=== PATIENT | female | born 1935 | race Caucasian/White ===

== ENCOUNTER → 2021-07-12 14:42 | Outpatient (BNVA) | payer MEDICARE, OTHER, SELFPAY | PROVIDERS: PCP Internal Medicine; Visit Provider Internal Medicine Gastroenterology | DX: K74.3 Primary biliary cirrhosis (principal); K52.839 Microscopic colitis, unspecified | CPT/HCPCS: 99202 ==

== ENCOUNTER 2021-11-22 14:01 | Outpatient (REF) | payer MEDICARE, OTHER, SELFPAY ==
[2021-11-22 15:17] LABS: MANUAL DIFF FLAG NO
[2021-11-22 15:35] LABS: Prothrombin Time 11.3 SEC (10.0-13.1)
[2021-11-22 15:38] LABS: Basophils Percent Auto 0.3 % (0-2); Eosinophils Absolute Auto 0.1 X10*3/uL (0.0-0.4); Eosinophils Percent Auto 1.3 % (0-4); Hematocrit 40.3 % (37.0-47.0); Hemoglobin 12.9 g/dl (12.0-16.0); Imm Gran Abs Auto 0.03 X10*3/uL (0.00-0.03); Imm Gran Pct Auto 0.5 % (0.0-0.4); Lymphocytes Absolute Auto 2.7 X10*3/uL (1.2-4.9); Lymphocytes Percent Auto 42.9 % (20-40); Mean Corpuscular Hemoglobin 27.7 pg (27.0-33.0); Mean Corpuscular Volume 86.7 fL (80.0-98.0); Mean Platelet Volume 11.8 fL (9.4-12.3); Monocytes Absolute Auto 0.5 X10*3/uL (0.1-1.2); Monocytes Percent Auto 8.3 % (2-11); Neutrophils Percent Auto 46.7 % (45-73); Platelet Count 160 X10*3/uL (160-400); Red Blood Count 4.65 X10*6/uL (4.20-5.50); Red Cell Distribution Width 12.8 % (11.0-16.0); White Blood Count 6.3 X10*3/uL (4.8-10.8)
[2021-11-22 15:54] LABS: Alanine Aminotransferase 9 U/L (0-31); Albumin Level 4.1 g/dL (3.5-5.0); Alkaline Phosphatase 56 U/L (39-117); Anion Gap 14 (12-20); Aspartate Amino Transferase 18 U/L (5-31); Bilirubin Total 0.4 mg/dL (0.0-1.0); Blood Urea Nitrogen 23 mg/dL (9-16); C Reactive Protein 0.18 mg/dL (< or = 0.50); Calcium 8.7 mg/dL (8.4-10.2); Carbon Dioxide 26 mmol/L (22-29); Chloride 106 mmol/L (96-108); Estimated Glomerular Filt Rate 46; Glucose Random 76 mg/dL (60-115); Potassium 4.4 mmol/L (3.3-5.1); Sodium 142 mmol/L (135-145); Total Protein 6.9 g/dL (6.5-8.0)
[2021-11-22 16:14] LABS: Ferritin 318 ng/mL (10-250); Vitamin D 25-OH Total 43.4 ng/mL (>30)
[2021-11-22 16:33] LABS: Folate 9.7 ng/mL (> or = 4.0); Vitamin B12 1473 pg/mL (200-900)
[2021-11-22 17:17] LABS: Appearance Urine Clear; Color Urine Yellow; Glucose Urine UA Negative (Negative); Leukocyte Esterase Urine Moderate (2+) (Negative); Nitrite Urine Negative (Negative); PH 5.5 (5.0-9.0); Specific Gravity - Urine 1.015 (1.005-1.025); UMIC TRIGGER UACC YES; Urine Blood Negative (Negative); Urine Ketones Negative (Negative); Urine Protein Negative (Neg-Trace)
[2021-11-22 17:23] LABS: Bacteria Urine None Seen (None Seen); Hyaline Casts Urine 0-2 /LPF (0-2); RBC Urine 0-2 /HPF (0-2); UACC Culture Trigger YES
[2021-11-23 08:04] LABS: HBS Num1 0.97 mIU/mL (0-7.99); HBc Num1 0.07 S/CO (0.00-0.79); HBsAGNum1 0.16 S/CO (0.00-0.99); Hepatitis B Core Antibody Nonreactive (Nonreactive); Hepatitis B Surface Antigen Negative (Negative); ~HepC Num1 0.16 S/CO (0.00-0.79); ~Hepatitis B Surface Antibody NONREACTIVE (Nonreactive); ~Hepatitis C Antibody Nonreactive (Nonreactive)
[2021-11-24 08:14] LABS: Hepatitis A Antibody IgM 0.29 Index (0-0.79); ~Hepatitis A Antibody IgM Nonreactive (Nonreactive)
[2021-11-24 14:47] LABS: Alpha 1 Anti-trypsin 179 mg/dL (83-199); Immunoglobulin G 1230 mg/dL (600-1540)
[2021-11-24 17:42] LABS: Transglutaminase Ab IgG <1.0 U/mL
[2021-11-25 16:56] LABS: Zinc 83 mcg/dL (60-130)
[2021-11-25 22:57] LABS: Soluble Liver Ag Autoantibody <20.1 U (0.0-20.0)
[2021-11-26 00:37] LABS: Liver Kidney Microsomal Ab <=20.0 U (<=20.0)
[2021-11-26 13:11] LABS: Smooth Muscle Antibody 35 U (<20)
[2021-11-26 15:37] LABS: Vitamin B6 3.6 ng/mL (2.1-21.7)
[2021-11-26 17:27] LABS: Vitamin C 0.8 mg/dL (0.3-2.7)
[2021-11-26 17:36] LABS: Vitamin A 49 mcg/dL (38-98)
[2021-11-28 17:52] LABS: Vitamin K1 257 pg/mL (130-1500)
[2021-11-29 15:47] LABS: Vitamin B5 (Pantothenic Acid) <40 ng/mL (<275)
[2021-11-29 15:52] LABS: Nicotinamide <20 ng/mL; Vit B3 - Nicotinic Acid <20 ng/mL
== END 2021-11-22 14:02 | disposition home or self-care (01) ==
LOC: HO.LAB 14:01
PROVIDERS: PCP Internal Medicine; Visit Provider Internal Medicine Gastroenterology
DX: K74.3 Primary biliary cirrhosis (principal); R63.4 Abnormal weight loss; K75.81 Nonalcoholic steatohepatitis (NASH); K52.839 Microscopic colitis, unspecified; G89.29 Other chronic pain; R10.33 Periumbilical pain; R19.7 Diarrhea, unspecified
CPT/HCPCS: 36415; 80053; 81001; 82103; 82180; 82306; 82607; 82728; 82746; 82784; 83520; 84207; 84590; 84591; 84597; 84630; 85025; 85610; 86015; 86140; 86364; 86376; 86704; 86706; 86709; 86803; 87086; 87340; 99212

== ENCOUNTER 2022-04-08 10:54 | Outpatient (REF) | payer MEDICARE, MEDICAID, SELFPAY ==
[2022-04-08 12:15] LABS: MANUAL DIFF FLAG NO
[2022-04-08 12:28] LABS: Basophils Percent Auto 0.5 % (0-2); Eosinophils Absolute Auto 0.3 X10*3/uL (0.0-0.4); Eosinophils Percent Auto 3.2 % (0-4); Hematocrit 40.2 % (37.0-47.0); Hemoglobin 12.3 g/dl (12.0-16.0); Imm Gran Abs Auto 0.04 X10*3/uL (0.00-0.03); Imm Gran Pct Auto 0.5 % (0.0-0.4); Lymphocytes Absolute Auto 2.1 X10*3/uL (1.2-4.9); Lymphocytes Percent Auto 25.7 % (20-40); Mean Corpuscular HGB Conc 30.6 g/dl (31.0-35.0); Mean Corpuscular Hemoglobin 27.5 pg (27.0-33.0); Mean Corpuscular Volume 89.9 fL (80.0-98.0); Mean Platelet Volume 12.1 fL (9.4-12.3); Monocytes Absolute Auto 0.6 X10*3/uL (0.1-1.2); Monocytes Percent Auto 6.8 % (2-11); Neutrophils Absolute Auto 5.1 x10*3/uL (2.0-8.3); Neutrophils Percent Auto 63.3 % (45-73); Platelet Count 175 X10*3/uL (160-400); Red Blood Count 4.47 X10*6/uL (4.20-5.50); Red Cell Distribution Width 13.2 % (11.0-16.0)
[2022-04-08 12:42] LABS: Prothrombin Time 11.4 SEC (10.0-13.1)
[2022-04-08 13:41] LABS: Ferritin 106 ng/mL (10-250); Folate 9.3 ng/mL (> or = 4.0); Vitamin B12 668 pg/mL (200-900); Vitamin D 25-OH Total 35.2 ng/mL (>30)
[2022-04-08 14:16] LABS: Alanine Aminotransferase 8 U/L (0-31); Albumin Level 3.9 g/dL (3.5-5.0); Alkaline Phosphatase 71 U/L (39-117); Anion Gap 14 (12-20); Aspartate Amino Transferase 17 U/L (5-31); Bilirubin Total 0.5 mg/dL (0.0-1.0); Blood Urea Nitrogen 22 mg/dL (9-16); Calcium 9.1 mg/dL (8.4-10.2); Carbon Dioxide 29 mmol/L (22-29); Chloride 105 mmol/L (96-108); Estimated Glomerular Filt Rate 39; Glucose Random 94 mg/dL (60-115); Magnesium 1.2 mg/dL (1.6-2.6); Potassium 4.5 mmol/L (3.3-5.1); Sodium 143 mmol/L (135-145); Total Protein 6.7 g/dL (6.5-8.0)
[2022-04-12 23:59] LABS: Zinc 70 mcg/dL (60-130)
[2022-04-13 16:23] LABS: Vitamin A 50 mcg/dL (38-98)
[2022-04-13 17:34] LABS: Alpha-Tocopherol 19.1 mg/L (5.7-19.9); Beta-Gamma Tocopherol <1.0 mg/L (<=4.3)
[2022-04-14 14:38] LABS: Vitamin K1 541 pg/mL (130-1500)
[2022-04-14 17:13] LABS: Vitamin C 0.8 mg/dL (0.3-2.7)
[2022-04-14 18:33] LABS: Nicotinamide <20 ng/mL; Vit B3 - Nicotinic Acid <20 ng/mL
[2022-04-14 22:43] LABS: Vitamin B5 (Pantothenic Acid) 52 ng/mL (<275)
[2022-04-15 18:09] LABS: Vitamin B1 16 nmol/L (8-30)
== END 2022-04-08 10:55 | disposition home or self-care (01) ==
LOC: HO.LAB 10:54
PROVIDERS: PCP Internal Medicine; Referring Provider Internal Medicine; Visit Provider Internal Medicine Gastroenterology
DX: E46 Unspecified protein-calorie malnutrition (principal); K74.3 Primary biliary cirrhosis; K75.81 Nonalcoholic steatohepatitis (NASH); R63.4 Abnormal weight loss
CPT/HCPCS: 36415; 80053; 82180; 82306; 82607; 82728; 82746; 83735; 84207; 84425; 84446; 84590; 84591; 84597; 84630; 85025; 85610; 99212

== ENCOUNTER 2022-05-26 12:26 | Outpatient (REF) | payer MEDICARE, MEDICAID, SELFPAY ==
[2022-05-26 14:43] LABS: Magnesium 1.1 mg/dL (1.6-2.6)
== END 2022-05-26 12:27 | disposition home or self-care (01) ==
LOC: HO.HMGCLDS 12:26
PROVIDERS: PCP Internal Medicine; Visit Provider Internal Medicine Gastroenterology
DX: E46 Unspecified protein-calorie malnutrition (principal); R63.4 Abnormal weight loss
CPT/HCPCS: 36415; 83735

== ENCOUNTER 2022-06-20 13:36 | Outpatient (REF) | payer MEDICARE, MEDICAID, SELFPAY ==
[2022-06-20 18:01] LABS: Magnesium 1.3 mg/dL (1.6-2.6)
== END 2022-06-20 13:37 | disposition home or self-care (01) ==
LOC: HO.HMGCLDS 13:36
PROVIDERS: PCP Internal Medicine; Visit Provider Internal Medicine Gastroenterology
DX: E46 Unspecified protein-calorie malnutrition (principal)
CPT/HCPCS: 36415; 83735

== ENCOUNTER 2022-07-27 12:29 | Outpatient (REF) | payer MEDICARE, MEDICAID, SELFPAY ==
[2022-07-27 14:19] LABS: Alkaline Phosphatase 60 U/L (39-117); Calcium 9.3 mg/dL (8.4-10.2); Potassium 4.4 mmol/L (3.3-5.1)
[2022-07-27 14:25] LABS: Magnesium 1.4 mg/dL (1.6-2.6)
== END 2022-07-27 12:30 | disposition home or self-care (01) ==
LOC: HO.HMGCLDS 12:29
PROVIDERS: PCP Internal Medicine; Visit Provider Internal Medicine Gastroenterology
DX: E46 Unspecified protein-calorie malnutrition (principal)
CPT/HCPCS: 36415; 82310; 83735; 84075; 84132

== ENCOUNTER 2022-09-15 11:04 | Outpatient (REF) | payer MEDICARE, MEDICAID, SELFPAY ==
[2022-09-15 15:38] LABS: Magnesium 1.2 mg/dL (1.6-2.6)
== END 2022-09-15 11:05 | disposition home or self-care (01) ==
LOC: HO.HMGCLDS 11:04
PROVIDERS: PCP Internal Medicine; Visit Provider Internal Medicine Gastroenterology
DX: E46 Unspecified protein-calorie malnutrition (principal)
CPT/HCPCS: 36415; 83735

== ENCOUNTER 2022-10-07 13:27 | Outpatient (REF) | payer MEDICARE, MEDICAID, SELFPAY ==
[2022-10-07 17:29] LABS: Magnesium 1.3 mg/dL (1.6-2.6)
== END 2022-10-07 13:28 | disposition home or self-care (01) ==
LOC: HO.HMGCLDS 13:27
PROVIDERS: Visit Provider Internal Medicine Gastroenterology
DX: E46 Unspecified protein-calorie malnutrition (principal)
CPT/HCPCS: 36415; 83735

== ENCOUNTER 2022-10-10 14:50 | Outpatient (AMB) | payer MEDICARE, MEDICAID, SELFPAY ==
[2022-10-10 14:55] VITALS: BP 145/68; PULSE 66; BMI 33.3
--- NOTE | 2022-10-10 14:55 | A.OFFVIS_ITS ---
Intake Vital Signs 10/10/22 14:55 Height 5 ft 1 in Weight 176 lb 5.917 oz BMI 33.3 BP 145/68 H Blood Pressure Location Lt brachial Position Sitting Pulse 66 Intake Visit Reasons: 6 month follow up Intake Note: Sola presents in the office as a 6 month follow up. CC: She states that she thinks she may be having a UTI at the moment and would like to be tested. 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 she was commenced on ursodiol and been on since she had EGD 03/2013-- no signs of portal HTN noted. she is recovering from an attack of vertigo, w/u neg for CVA she has a rash few months ago, ?shingles --now post herpetic pain--burning on left side she denies abdominal pain no nausea appetite is good weight si stable normal stools she has hemorrhoids that bleed some times denies constipation she had colonoscopy--cant recall --done at [facility] she use to see Dr Qureshi RUQ: 07/2021---renal cysts, small liver consistent with cirrhosis, no masses INTERIM: she is worried about UTI, burning with urine she has pins and needles, constant like her shingles pain, did see some blisters last few days appetite is good no other areas of abdominal pain no jaundice takes vitamins daily and ursodiol she has low Mag EXAM: GENERAL: The patient is well developed and nontoxic, VITAL SIGNS:see workflow HEENT: Nonicteric sclerae, PERRLA, EOMI. Oropharynx clear. Moist mucous membranes. Conjunctivae appear well perfused. No thyroid mass. CHEST: Chest wall is nontender. HEART: Regular rate and rhythm without murmurs. LUNGS: Clear to auscultation bilaterally. ABDOMEN: Soft, positive bowel sounds,tender upper abdomen, no organomegaly.no flank tenderness SKIN: No rash, no excessive bruising, petechiae, or purpura. NEUROLOGIC: Cranial nerves II-XII intact without motor/sensory deficit. MS: normal ROM A/P: 1/ diagnosis of PBC, been on urosdiol for years, LFT have been normal 2/ hypomagnesemia likely 2/2 to PPI which she says she cannot stop 3/ post shingles radicular pain PLAN: 1/ nortriptiline, and see if helps her radicular sounding pain 2/ labs incl vitamin levels next time 3/ cipro for presumed UTI--send for UA and culture 4/ cont with ursodiol 5/ increase Mg to TID, she is folllwing with renal for this as well ?? ? 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
== END 2022-10-10 15:20 | disposition home or self-care (01) ==
PROVIDERS: PCP Internal Medicine; Visit Provider Internal Medicine Gastroenterology
DX: K74.3 Primary biliary cirrhosis (principal); N39.0 Urinary tract infection, site not specified
CPT/HCPCS: 99213

== ENCOUNTER → 2022-10-10 14:50 | Outpatient (BNVA) | payer MEDICARE, MEDICAID, SELFPAY | PROVIDERS: PCP Internal Medicine; Visit Provider Internal Medicine Gastroenterology | DX: N39.0 Urinary tract infection, site not specified (principal); K74.3 Primary biliary cirrhosis; Z90.49 Acquired absence of other specified parts of digestive tract | CPT/HCPCS: 99212 ==

== ENCOUNTER 2022-10-14 13:58 | Outpatient (REF) | payer MEDICARE, MEDICAID, SELFPAY ==
[2022-10-14 16:02] LABS: Appearance Urine Clear; Color Urine Yellow; Glucose Urine UA Negative (Negative); Leukocyte Esterase Urine Negative (Negative); Nitrite Urine Negative (Negative); PH 5.5 (5.0-9.0); Urine Blood Negative (Negative); Urine Ketones Trace mg/dL (Negative); Urine Protein Negative (Neg-Trace)
== END 2022-10-14 13:59 | disposition home or self-care (01) ==
LOC: HO.HMGCLDS 13:58
PROVIDERS: PCP Internal Medicine; Visit Provider Internal Medicine Gastroenterology
DX: R30.0 Dysuria (principal)
CPT/HCPCS: 81003

== ENCOUNTER 2022-12-05 14:21 | Outpatient (AMB) | payer MEDICARE, MEDICAID, SELFPAY ==
--- NOTE | 2022-12-05 14:33 | MHC.OFFVIS ---
Intake Vital Signs 12/05/22 14:35 Height 5 ft 1 in Weight 174 lb 2.643 oz BMI 32.9 BP 133/62 Blood Pressure Location Lt brachial Position Sitting Pulse 63 Intake Visit Reasons: 8 week follow up Intake Note: Sola presents in the office as a 8 week follow up. CC: She states that she is dealing with a shingles pains. She is having pains for over a year. She was given the Nortriptlyine but was told by PCP that she should not take this - has it on her note for you here. Allergies No Known Allergies [No Known Allergies*] Allergy (Unverified 12/05/22 14:36) HPI 8 week follow up HPI Details 87 yr old f being seen for f/u RECAP: Per PCP note pt had PBC dx 2011 after cholecystectomy? she was commenced on ursodiol and been on since she had EGD 03/2013-- no signs of portal HTN noted. she is recovering from an attack of vertigo, w/u neg for CVA she has a rash few months ago, ?shingles --now post herpetic pain--burning on left side she denies abdominal pain no nausea appetite is good weight si stable normal stools she has hemorrhoids that bleed some times denies constipation she had colonoscopy--cant recall --done at [facility] she use to see Dr Qureshi RUQ: 07/2021---renal cysts, small liver consistent with cirrhosis, no masses INTERIM: she has some cold symptoms, she still has pain from the shingles, she did not take low dose TCA as her pcp recommended her not to take it appetite is good no other areas of abdominal pain no jaundice takes vitamins daily and ursodiol she still has low Mag, she is willing to now come off PPI and try H2B EXAM: GENERAL: The patient is well developed and nontoxic, VITAL SIGNS:see workflow HEENT: Nonicteric sclerae, PERRLA, EOMI. Oropharynx clear. Moist mucous membranes. Conjunctivae appear well perfused. No thyroid mass. CHEST: Chest wall is nontender. HEART: Regular rate and rhythm without murmurs. LUNGS: Clear to auscultation bilaterally. ABDOMEN: Soft, positive bowel sounds,tender upper abdomen, no organomegaly.no flank tenderness SKIN: No rash, no excessive bruising, petechiae, or purpura. NEUROLOGIC: Cranial nerves II-XII intact without motor/sensory deficit. MS: normal ROM A/P: 1/ diagnosis of PBC, been on urosdiol for years, LFT have been normal 2/ hypomagnesemia likely 2/2 to PPI which she says she cannot stop 3/ post shingles radicular pain PLAN: 1/ refer pain mx for further assessment of post herpetic neuralgia 2/ labs incl vitamin levels 3/ cont with ursodiol 4/ stop PPI and try famotidine and see if helps he Mag ?? ? 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 (2) Post herpetic neuralgia: Code(s): B02.29 - Other postherpetic nervous system involvement (3) Weight loss: Code(s): R63.4 - Abnormal weight loss (4) Malnutrition: Code(s): E46 - Unspecified protein-calorie malnutrition Orders: Orders Complete Blood Count Auto Diff Today B02.29 - Other postherpetic nervous system involvement, K74.3 - Primary biliary cirrhosis, R63.4 - Abnormal weight loss Vitamin B1 Today B02.29 - Other postherpetic nervous system involvement, E46 - Unspecified protein-calorie malnutrition, K74.3 - Primary biliary cirrhosis, R63.4 - Abnormal weight loss Vitamin B12 and Folate Today B02.29 - Other postherpetic nervous system involvement, E46 - Unspecified protein-calorie malnutrition, K74.3 - Primary biliary cirrhosis, R63.4 - Abnormal weight loss Vitamin C Today B02.29 - Other postherpetic nervous system involvement, E46 - Unspecified protein-calorie malnutrition, K74.3 - Primary biliary cirrhosis, R63.4 - Abnormal weight loss Vitamin D 25-OH Total Today B02.29 - Other postherpetic nervous system involvement, E46 - Unspecified protein-calorie malnutrition, K74.3 - Primary biliary cirrhosis, R63.4 - Abnormal weight loss Ferritin Today B02.29 - Other postherpetic nervous system involvement, E46 - Unspecified protein-calorie malnutrition, K74.3 - Primary biliary cirrhosis, R63.4 - Abnormal weight loss Vitamin K1 Today B02.29 - Other postherpetic nervous system involvement, E46 - Unspecified protein-calorie malnutrition, K74.3 - Primary biliary cirrhosis, R63.4 - Abnormal weight loss Vitamin E Today B02.29 - Other postherpetic nervous system involvement, E46 - Unspecified protein-calorie malnutrition, K74.3 - Primary biliary cirrhosis, R63.4 - Abnormal weight loss Comprehensive Met. Panel Today B02.29 - Other postherpetic nervous system involvement, K74.3 - Primary biliary cirrhosis, K75.81 - Nonalcoholic steatohepatitis (TOLBERT), R63.4 - Abnormal weight loss Magnesium Today B02.29 - Other postherpetic nervous system involvement, K74.3 - Primary biliary cirrhosis, R63.4 - Abnormal weight loss Vitamin A Today B02.29 - Other postherpetic nervous system involvement, E46 - Unspecified protein-calorie malnutrition, K74.3 - Primary biliary cirrhosis, R63.4 - Abnormal weight loss Vitamin B3 (Niacin) Today B02.29 - Other postherpetic nervous system involvement, E46 - Unspecified protein-calorie malnutrition, K74.3 - Primary biliary cirrhosis, R63.4 - Abnormal weight loss Vitamin B5 (Pantothenic Acid) Today B02.29 - Other postherpetic nervous system involvement, E46 - Unspecified protein-calorie malnutrition, K74.3 - Primary biliary cirrhosis, R63.4 - Abnormal weight loss Vitamin B6 Today B02.29 - Other postherpetic nervous system involvement, E46 - Unspecified protein-calorie malnutrition, K74.3 - Primary biliary cirrhosis, R63.4 - Abnormal weight loss Zinc Today B02.29 - Other postherpetic nervous system involvement, E46 - Unspecified protein-calorie malnutrition, K74.3 - Primary biliary cirrhosis, R63.4 - Abnormal weight loss Referrals Pain Management Referral B02.29 - Other postherpetic nervous system involvement, K74.3 - Primary biliary cirrhosis, R63.4 - Abnormal weight loss Medications: New famotidine 40 mg PO BID 90 tabs 3RF Coding Level of Care Code Est Pt Level 3 (95075) Diagnoses Primary biliary cholangitis K74.3 Post herpetic neuralgia B02.29 Weight loss R63.4 Malnutrition E46
[2022-12-05 14:35] VITALS: BP 133/62; PULSE 63; BMI 32.9
== END 2022-12-05 15:01 | disposition home or self-care (01) ==
PROVIDERS: PCP Internal Medicine; Visit Provider Internal Medicine Gastroenterology
DX: K74.3 Primary biliary cirrhosis (principal); B02.29 Other postherpetic nervous system involvement; R63.4 Abnormal weight loss; E46 Unspecified protein-calorie malnutrition
CPT/HCPCS: 99213

== ENCOUNTER → 2022-12-05 14:21 | Outpatient (BNVA) | payer MEDICARE, MEDICAID, SELFPAY | PROVIDERS: PCP Internal Medicine; Visit Provider Internal Medicine Gastroenterology | DX: B02.29 Other postherpetic nervous system involvement (principal); K74.3 Primary biliary cirrhosis; R63.4 Abnormal weight loss; E46 Unspecified protein-calorie malnutrition | CPT/HCPCS: 99212 ==

== ENCOUNTER 2022-12-21 13:19 | Outpatient (AMB) | payer MEDICARE, MEDICAID, SELFPAY ==
--- NOTE | 2022-12-21 13:22 | MHC.OFFVIS ---
Intake Vital Signs 12/21/22 13:23 Height 5 ft 1 in Weight 174 lb BMI 32.9 BP 131/79 Blood Pressure Location Lt brachial Position Sitting Respiration 12 Pulse 100 Pulse Source Pulse Oximeter Pulse Oximetry (%) 97 Oxygen Delivery Method Room Air Intake Visit Reasons: postherpetic nervous system involvement /Confirmed Allergies No Known Allergies [No Known Allergies*] Allergy (Verified 12/21/22 13:24) Medication List - Last Reconciled 12/21/22 by Tona Menard LPN albuterol sulfate 90 mcg/actuation 2 puffs inhalation Q4H alprazolam 0.25 mg PO BEDTIME PRN escitalopram oxalate 10 mg PO QPM famotidine 40 mg PO BID fluticasone propionate 50 mcg/actuation sprays intranasal hydrocortisone acetate 25 mg RI BID PRN insulin asp prt-insulin aspart 100 unit/mL (70-30) (Novolog Mix 70-30FlexPen U-100) 5 units subcut TID insulin glargine (Basaglar KwikPen U-100 Insulin) units subcut lisinopril 20 mg PO DAILY metoprolol tartrate 25 mg PO BID pen needle, diabetic (BD Ultra-Fine Short Pen Needle) As directed rosuvastatin 10 mg PO BEDTIME ursodiol 500 mg PO BID HPI HPI Comments History of Present Illness Details Sidney Knight is very pleasant 87 years old female who presents in my office with complains on severe pain in right flank and right upper quadrant of the abdomen in sensations of little needles and burning sensation for 1 and half years. She reports that she received evaluation for shingles in the past but never was offered valacyclovir for treatment. She currently have frequent out crops of shingle rash appeared on the painful area. She could be immunocompromised and continue to have shingle out crops. She never received gabapentin or lidocaine patch for treatment of her pain. She reports that she cannot sleep normally because of her pain cannot do activities of daily living she can take care of herself but she cannot function normally. She is retired individual. In terms of tissue damage she reports her pain is throbbing shooting stabbing sharp tingling piercing burning stinging aching heavy sensation. She never tried 10s unit for her pain. Her past medical history significant for diabetes type 2 she is on insulin now she had liver disease she reports agoraphobia and panic attacks she reports headaches fatigue dizzy knee and fading. Past surgical history significant for gallbladder surgery and knee replacement. Social history she is retired individual she denies smoking cigarettes drinking alcohol she drinks 2 cups of coffee today she denies recreational drugs. [facility] Surgical History History of esophagogastroduodenoscopy (EGD) Hx of appendectomy Hx of cholecystectomy Hx of colonoscopy Hx of knee surgery Review of Systems Const All systems reviewed & are unremarkable except as noted in HPI and below Reports fatigue, Reports headache(s), Reports lethargy and Reports weight loss ENT Reports Normal hearing present and Reports headache(s) Card Denies dyspnea Resp Denies cough and Denies dyspnea GI Denies constipation and Denies diarrhea Musc Reports as per HPI and Reports tingling Neuro Reports Normal hearing present, Denies Abnormal speech present, Denies confusion, Reports headache(s), Denies Sensory deficit (Neuro) and Reports tingling Psych Reports abnormal sleep pattern, Denies confusion and Reports depression Endo Reports fatigue Physical Exam Vital Signs: Last Vital Signs Pulse 100 12/21/22 13:23 Resp 12 12/21/22 13:23 BP 131/79 12/21/22 13:23 Pulse Ox 97 12/21/22 13:23 Oxygen Delivery Method Room Air 12/21/22 13:23 BMI result Body Mass Index 32.9 Const General: no acute distress; No confusion Orientation/consciousness: patient oriented x3 and No confusion Eyes General: appearance normal, both eyes and all related structures Pupils: Equal, round and reactive pupils present EOM: EOMs intact bilaterally Neck Neck: Yes full ROM Chest Chest palpation & inspection: normal inspection of the chest Resp Effort & Inspection: normal respiratory effort, able to speak in complete sentences, normal respiratory pattern, no audible wheezes and no cough Cardio Jugular venous distension: no JVD GI Other: On inspection of right lateral flank of the patient and right upper quadrant dry fresh out crops of the shingle blisters as well as previous evidence of out crops as spotty pigmentation along side approximately T12-L1 truncal nerve root course on the right. Neuro General: patient oriented x3, gait normal and No confusion Cranial nerves: Yes CN's II-XII intact bilaterally, Yes Equal, round and reactive pupils present, Yes Normal hearing present and Yes Ability to bilaterally elevate shoulders present Speech: No Abnormal speech present Gait exam (Neuro): Normal gait present Motor exam (neuro): 5/5 motor strength present throughout Sensory Exam: No Sensory deficit (Neuro) Extrem General: No pedal edema Psych Speech and movement: Normal speech and movement present Affect: normal affect Attitude: cooperative Thought process: Normal thought process present Thought content: Normal thought content present Insight: Good insight present (Psych) Judgement: Good judgement present (Psych) Assessment & Plan Assessment & Plan (1) Herpes zoster: Code(s): B02.9 - Zoster without complications (2) Post herpetic neuralgia: Code(s): B02.29 - Other postherpetic nervous system involvement Plan I will consider this patient still as 1 suffering from herpes zoster. She never received valacyclovir treatment in the past and she has fresh out crops of shingles constantly coming on the anterior and lateral surface of the right upper quadrant. I will start her on valacyclovir 1000 mg p.o. Q 8 hours for 10 days. I also will prescribe her gabapentin as well as lidocaine patch to treat her condition. I will see her in 2 months. I will offer her some injections and or neuromodulation is if her condition is not improved by then. Medications: New valacyclovir 1,000 mg PO Q8H 10 days 30 tabs 0RF gabapentin 300 mg PO TID 30 days 90 caps 8RF lidocaine 5% leave on most painful area for up to 12 hrs 2 patches topical DAILY 30 days 30 ea 0RF B02.9 - Zoster without complications Patient Instructions: I here by testify that I spent 45 minutes in conversation with this patient as well as planning her care and organizing this note. Coding Level of Care Code New Pt Level 4 (16203) Diagnoses Herpes zoster B02.9 Post herpetic neuralgia B02.29
[2022-12-21 13:23] VITALS: BP 131/79; PULSE 100; RESP 12; O2SAT 97; BMI 32.9
== END 2022-12-21 13:49 | disposition home or self-care (01) ==
PROVIDERS: PCP Internal Medicine; Visit Provider Anesthesiology
DX: B02.9 Zoster without complications (principal); B02.29 Other postherpetic nervous system involvement
CPT/HCPCS: 99204

== ENCOUNTER → 2022-12-21 13:19 | Outpatient (BNVA) | payer MEDICARE, MEDICAID, SELFPAY | PROVIDERS: PCP Internal Medicine; Visit Provider Anesthesiology | DX: B02.29 Other postherpetic nervous system involvement (principal) | CPT/HCPCS: 99202 ==

== ENCOUNTER 2023-01-30 12:32 | Outpatient (REF) | payer MEDICARE, MEDICAID, SELFPAY ==
[2023-01-30 13:07] LABS: MANUAL DIFF FLAG NO
[2023-01-30 14:27] LABS: Basophils Percent Auto 0.5 % (0-2); Eosinophils Absolute Auto 0.2 X10*3/uL (0.0-0.4); Eosinophils Percent Auto 2.6 % (0-4); Hematocrit 38.5 % (37.0-47.0); Imm Gran Abs Auto 0.03 X10*3/uL (0.00-0.03); Imm Gran Pct Auto 0.4 % (0.0-0.4); Lymphocytes Absolute Auto 1.7 X10*3/uL (1.2-4.9); Lymphocytes Percent Auto 22.5 % (20-40); Mean Corpuscular HGB Conc 31.2 g/dl (31.0-35.0); Mean Corpuscular Hemoglobin 28.6 pg (27.0-33.0); Mean Corpuscular Volume 91.7 fL (80.0-98.0); Mean Platelet Volume 12.1 fL (9.4-12.3); Monocytes Absolute Auto 0.5 X10*3/uL (0.1-1.2); Monocytes Percent Auto 6.6 % (2-11); Neutrophils Absolute Auto 5.1 x10*3/uL (2.0-8.3); Neutrophils Percent Auto 67.4 % (45-73); Platelet Count 149 X10*3/uL (160-400); Red Cell Distribution Width 14.1 % (11.0-16.0); White Blood Count 7.6 X10*3/uL (4.8-10.8)
[2023-01-30 15:26] LABS: Ferritin 141 ng/mL (10-250); Vitamin D 25-OH Total 43.6 ng/mL (>30)
[2023-01-30 15:28] LABS: Alanine Aminotransferase 6 U/L (0-31); Albumin Level 3.9 g/dL (3.5-5.0); Alkaline Phosphatase 60 U/L (39-117); Anion Gap 13 (12-20); Aspartate Amino Transferase 13 U/L (5-31); Bilirubin Total 0.4 mg/dL (0.0-1.0); Blood Urea Nitrogen 19 mg/dL (9-16); Calcium 9.4 mg/dL (8.4-10.2); Carbon Dioxide 24 mmol/L (22-29); Chloride 107 mmol/L (96-108); Estimated Glomerular Filt Rate 37; Glucose Random 187 mg/dL (60-115); Magnesium 1.3 mg/dL (1.6-2.6); Potassium 3.9 mmol/L (3.3-5.1); Sodium 140 mmol/L (135-145); Total Protein 6.9 g/dL (6.5-8.0)
[2023-01-30 15:37] LABS: Folate 8.2 ng/mL (> or = 4.0); Vitamin B12 1359 pg/mL (200-900)
[2023-02-01 12:30] LABS: Zinc 79 mcg/dL (60-130)
[2023-02-02 12:48] LABS: Alpha-Tocopherol 25.4 mg/L (5.7-19.9); Beta-Gamma Tocopherol <1.0 mg/L (<=4.3)
[2023-02-02 15:27] LABS: Vitamin A 45 mcg/dL (38-98)
[2023-02-03 11:09] LABS: Vitamin B1 13 nmol/L (8-30)
[2023-02-03 11:13] LABS: Vitamin K1 728 pg/mL (130-1500)
[2023-02-05 23:18] LABS: Vitamin C 0.3 mg/dL (0.3-2.7)
[2023-02-06 19:48] LABS: Vitamin B5 (Pantothenic Acid) 72 ng/mL (<275)
[2023-02-06 21:28] LABS: Nicotinamide <20 ng/mL; Vit B3 - Nicotinic Acid <20 ng/mL
== END 2023-01-30 12:33 | disposition home or self-care (01) ==
LOC: HO.LAB 12:32
PROVIDERS: PCP Internal Medicine; Visit Provider Internal Medicine Gastroenterology
DX: B02.29 Other postherpetic nervous system involvement (principal); R63.4 Abnormal weight loss; K74.3 Primary biliary cirrhosis; E46 Unspecified protein-calorie malnutrition; K75.81 Nonalcoholic steatohepatitis (NASH)
CPT/HCPCS: 36415; 80053; 82180; 82306; 82607; 82728; 82746; 83735; 84207; 84425; 84446; 84590; 84591; 84597; 84630; 85025

== ENCOUNTER 2023-03-20 14:34 | Outpatient (REF) | payer MEDICARE, MEDICAID, SELFPAY ==
[2023-03-20 16:20] LABS: Magnesium 1.5 mg/dL (1.6-2.6)
== END 2023-03-20 14:35 | disposition home or self-care (01) ==
LOC: HO.HMGCLDS 14:34
PROVIDERS: PCP Internal Medicine; Visit Provider Internal Medicine Gastroenterology
DX: E46 Unspecified protein-calorie malnutrition (principal); R63.4 Abnormal weight loss
CPT/HCPCS: 36415; 83735

== ENCOUNTER 2023-04-03 14:31 | Outpatient (AMB) | payer MEDICARE, MEDICAID, SELFPAY ==
--- NOTE | 2023-04-03 14:42 | A.OFFVIS_ITS ---
Intake Vital Signs 04/03/23 14:45 Height 5 ft 1 in Weight 175 lb BMI 33.1 BP 128/58 L Blood Pressure Location Lt brachial Position Sitting Pulse 62 Intake Visit Reasons: 5 month follow up Intake Note: Patient 5 month follow up for abdominal pain. Patient cc: abdominal pain on and off, denies any other GI issues for today. 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 she was commenced on ursodiol and been on since she had EGD 03/2013-- no signs of portal HTN noted. 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 Oropharynx clear. Moist mucous membranes. Conjunctivae appear well perfused. No thyroid mass. CHEST: Chest wall is nontender. HEART: Regular rate and rhythm without murmurs. LUNGS: Clear to auscultation bilaterally. ABDOMEN: Soft, positive bowel sounds,tender upper abdomen, no organomegaly.no flank tenderness SKIN: few blister like lesion in deramtome distribution left upper abdomen NEUROLOGIC: Cranial nerves II-XII intact without motor/sensory deficit. MS: normal ROM A/P: 1/ diagnosis of PBC, been on urosdiol fo r years, LFT have been normal--most recent 02/11 2/ hypomagnesemia likely 2/2 to PPI whic h she says she cannot stop--changed to another preparation with improved MG 3/ post shingles radicular pain PLAN: 1/ US abdo r/o other cause of pain and a lso check for HCC 2/ labs at next visit 3/ trial of zovirax. might need TCA, lyr ica--she stopped gabapentin PFSH Surgical History Hx of cholecystectomy Hx of appendectomy Hx of knee surgery History of esophagogastroduodenoscopy (EGD) Hx of colonoscopy Social History (Updated 04/03/23 @ 14:43 by Susy Hall) Household Members: Family Alcohol intake: never Patient Tobacco Use Status: Never used Tobacco Use of substances other than those prescribed or required for medical reasons: No Physical Exam Vital Signs: Last Vital Signs Pulse 62 04/03/23 14:45 BP 128/58 L 04/03/23 14:45 BMI result Body Mass Index 33.1 Assessment & Plan Assessment & Plan (1) Post herpetic neuralgia: Code(s): B02.29 - Other postherpetic nervous system involvement Plan: A/P: 1/ diagnosis of PBC, been on urosdiol for years, LFT have been normal--most recent 02/11 2/ hypomagnesemia likely 2/2 to PPI which she says she cannot stop--changed to another preparation with improved MG 3/ post shingles radicular pain PLAN: 1/ US abdo r/o other cause of pain and also check for HCC 2/ labs at next visit 3/ trial of zovirax. might need TCA, lyrica--she stopped gabapentin (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 Plan: A/P: 1/ diagnosis of PBC, been on urosdiol for years, LFT have been normal--most recent 02/11 2/ hypomagnesemia likely 2/2 to PPI which she says she cannot stop--changed to another preparation with improved MG 3/ post shingles radicular pain PLAN: 1/ US abdo r/o other cause of pain and also check for HCC 2/ labs at next visit 3/ trial of zovirax. might need TCA, lyrica--she stopped gabapentin Medications: New acyclovir 5% (Zovirax) 1 appl topical 6XD 7 days 30 grams 0RF Coding Level of Care Code Est Pt Level 4 (26341) Diagnoses Post herpetic neuralgia B02.29 Primary biliary cholangitis K74.3
[2023-04-03 14:45] VITALS: BP 128/58; PULSE 62; BMI 33.1
== END 2023-04-03 14:59 | disposition home or self-care (01) ==
PROVIDERS: PCP Internal Medicine; Visit Provider Internal Medicine Gastroenterology
DX: B02.29 Other postherpetic nervous system involvement (principal); K74.3 Primary biliary cirrhosis
CPT/HCPCS: 99214

== ENCOUNTER → 2023-04-03 14:31 | Outpatient (BNVA) | payer MEDICARE, MEDICAID, SELFPAY | PROVIDERS: PCP Internal Medicine; Visit Provider Internal Medicine Gastroenterology | DX: B02.29 Other postherpetic nervous system involvement (principal); K74.3 Primary biliary cirrhosis | CPT/HCPCS: 99212 ==

== ENCOUNTER 2023-05-18 11:01 | Outpatient (REF) | payer MEDICARE, MEDICAID, SELFPAY ==
--- NOTE | ~2023-05-18 | US_ITS ---
EXAMINATION: US COMPLETE ABDOMEN WITH LIVER ELASTOGRAPHY CLINICAL INFORMATION: Primary biliary cirrhosis. COMPARISON: None available. TECHNIQUE: Real-time imaging of the abdominal viscera. Noninvasive ultrasound liver fibrosis assessment is performed using Hailey ElastPQ point quantification shear wave elastography (2D-SWE) with a C5-2 MHz transducer. Multiple elastography samples are obtained. FINDINGS: PANCREAS: Limited. The visualized pancreatic head and proximal body are normal in appearance. The remainder of the pancreas is obscured from visualization by the overlying bowel gas. ABDOMINAL AORTA: The proximal, middle, and distal aortic segments are normal in caliber. There are atherosclerotic calcifications. INFERIOR VENA CAVA: Visualized portions are normal. LIVER: The liver demonstrates normal size, contour and coarse, increased echogenicity. No focal lesion or intrahepatic biliary duct dilatation. The right lobe measures 11.6 cm in length. The left lobe measures 9.7 cm in length. Portal flow is towards the liver (hepatopetal). Shear wave liver elastography median stiffness is 1.64 m/s (reference: normal median stiffness is 1.3 m/s or less). IQR/median stiffness to assess sampling precision is 0.15 (reference: good quality data set is IQR/median stiffness of 0.15 or less). GALLBLADDER: Normal. The gallbladder is physiologically distended without evidence of stones, sludge, polyps, wall thickening or pericholecystic fluid. COMMON BILE DUCT: Poorly visualized. Normal in caliber measuring 0.4 cm in diameter. RIGHT KIDNEY: Normal. No hydronephrosis. No renal calculi or focal parenchymal lesions. The kidney measures 8.8 cm in maximum dimension. LEFT KIDNEY: Multiple simple cysts are seen, the largest at the lower pole measuring 5.4 cm. These require no imaging follow-up No hydronephrosis. No renal calculi or focal parenchymal lesions. The kidney measures 10.7 cm in maximum dimension. SPLEEN: Normal. The spleen measures 8.3 cm in maximum dimension. FREE FLUID: None. US/US abdomen comp w elastography IMPRESSION: 1. There is coarse, increased hepatic echotexture, consistent with fatty infiltration or hepatocellular disease. Please correlate clinically. The provided history of primary biliary cirrhosis is raised. No focal hepatic mass or intrahepatic biliary dilatation is seen. 2. Liver elastography: In the absence of other known clinical signs, measurements rule out compensated advanced chronic liver disease. If there are known clinical signs, further testing may be needed for confirmation. 3. The gallbladder is surgically absent. 4. Limited examination, in particular of the pancreas and common bile duct. REFERENCE: Society of Radiologists in Ultrasound Liver Stiffness Thresholds (2020): LIVER STIFFNESS THRESHOLDS: *Liver Stiffness equal or less than 1.3 m/s: High probability of being normal. *Liver Stiffness less than 1.7 m/s: In the absence of other known clinical signs, rules out compensated advanced chronic liver disease. *Liver Stiffness 1.7-2.1 m/s: Suggestive of compensated advanced chronic liver disease but need further test for confirmation. *Liver Stiffness over 2.1 m/s: Rules in compensated advanced chronic liver disease. *Liver Stiffness over 2.4 m/s: Suggestive of clinically significant portal hypertension. QUALITY OF DATA SET: *IQR/Median value equal or less than 0.15 implies a quality data set. *IQR/Median value over 0.15 implies a poor quality data set. SIGNIFICANT CHANGE FROM PRIOR EXAM: Significant change if liver stiffness measurement is 10% or greater from prior exam. OTHER CONSIDERATIONS: The stage of liver fibrosis may be overestimated in the setting of acute hepatitis, liver inflammation, elevated liver function tests, hepatic vascular congestion, obstructive cholestasis, non-fasting state, and infiltrative diseases such as amyloidosis and lymphoma. In some patients with NAFLD, the liver stiffness thresholds for compensated advanced chronic liver disease may be lower. In causes other than viral hepatitis and NAFLD, liver stiffness thresholds are not well established.
== END 2023-05-18 11:02 | disposition home or self-care (01) ==
LOC: HO.US 11:01
PROVIDERS: PCP Internal Medicine; Visit Provider Internal Medicine Gastroenterology
DX: K74.3 Primary biliary cirrhosis (principal); R63.4 Abnormal weight loss; E46 Unspecified protein-calorie malnutrition
CPT/HCPCS: 76700; 76981

== ENCOUNTER 2023-06-20 17:21 | Observation (INO) | payer MEDICARE, OTHER, SELFPAY ==
--- NOTE | ~2023-06-20 | MR_ITS ---
EXAMINATION: MR BRAIN WITHOUT CONTRAST CLINICAL INFORMATION: aphasia COMPARISON: CTA 06/20/2023 TECHNIQUE: MRI of the brain was obtained using routine sequences without contrast. FINDINGS: No acute infarct. No acute intracranial hemorrhage or extra-axial fluid collection. Moderate global cerebral volume loss. Patchy T2 FLAIR hyperintense foci in the subcortical and periventricular white matter and left thalamus, nonspecific but presumably severe chronic microangiopathy or other chronic white matter process. Gliosis is noted traversing the corpus callosum. No mass lesion, mass effect, or herniation pattern. Normal intracranial arterial and dural venous sinus flow voids. Lens replacements. The paranasal sinuses and mastoids are well aerated. Normal marrow signal. Partially imaged cervical spondylosis. MR/MR head/brain wo con IMPRESSION: 1. No acute intracranial abnormality. 2. Moderate volume loss and nonspecific white matter disease, presumably severe chronic microangiopathy or other chronic white matter process.
--- NOTE | ~2023-06-20 | CT_ITS ---
EXAMINATION: CT ANGIOGRAM HEAD CT ANGIOGRAM NECK CLINICAL INFORMATION: Reason for Exam Speech aphasia COMPARISON: None. TECHNIQUE: Test bolus sequences followed by intravenous administration 70 mL of Omnipaque 350. Helical imaging was performed in the axial plane from the aortic arch to the skull vertex. Delayed postcontrast imaging of the head was also performed. The data was processed at the radiographer technologist's workstation for generation of MIP sequences. Angled MIPs and volume rendered reformatted images were also generated at an offline 3D workstation. Stenoses are assessed in accordance with Smith et al. Quantification of Carotid Stenosis on CT Angiography. AJR 2006. 27(1):13-19. [address] CT examination was performed using dose optimization techniques as appropriate, variously including the following: *Automated exposure control *Adjustment of mA and/or kV according to patient size (this includes techniques or standardized protocols for targeted exams where dose is matched to indication/reason for exam; i.e. extremities or head) *Use of iterative reconstruction technique DLP: 1378.73 mGy-cm FINDINGS: CT HEAD: Moderate generalized parenchymal volume loss. There is asymmetric ex vacuo dilatation of the right temporal horn likely reflective of asymmetric right hippocampal atrophy. Patchy periventricular and deep white matter hypoattenuation is nonspecific but most suggestive of moderate to severe chronic microangiopathy, limiting assessment for superimposed acute ischemia which would be better evaluated on MRI. No territorial loss of gomez-white differentiation. Punctate calcification in the left posterior centrum semiovale. No acute intracranial hemorrhage or extra-axial fluid collection. No mass lesion, significant mass effect, or herniation pattern. No pathologic intra-axial enhancement or regional oligemia. Lens replacements. Paranasal sinuses and mastoid air cells are well aerated. Osseous structures are intact. CTA HEAD: Arteriovenous timing of contrast bolus limits assessment of the distal intracranial arterial vasculature. No hemodynamically significant stenosis or occlusion in the anterior or posterior circulation. Mild calcific plaque along the carotid siphons without associated luminal narrowing. Extradural origin of the left PICA, a normal anatomic variant. 1.5 mm inferiorly projecting infundibulum versus aneurysm arising from the terminal right ICA. No high flow vascular malformations. Timing of the contrast bolus allows assessment of the major dural venous sinuses, which all opacify normally CTA NECK: Classic 3 vessel branching pattern of the aortic arch. Mild partially calcified atherosclerotic plaque of the aortic arch and great vessel origins. Origins of the great vessels are widely patent. The common carotid arteries are widely patent. Trace partially calcified plaque at the carotid bifurcations without stenosis. The internal carotid arteries are widely patent. The left vertebral artery is dominant. The vertebral artery ostia are widely patent. Both vertebral arteries are widely patent throughout their extracranial cervical course. CT NECK: The patient is largely edentulous with dentures in place and a single horizontally impacted right posterior maxillary molar remaining with expected attritional changes of the maxillary alveoli. Enlarged, heterogeneous, multinodular thyroid gland which is not well assessed due to artifact and further evaluation with thyroid ultrasound is advised. A couple small subpleural blebs/paraseptal emphysema in the right lung. Advanced cervical spondylosis, inclusive of partially ossified retrodental pannus partially effaces the ventral C1-C2 CSF. CT/CT angio head neck stroke IMPRESSION: 1. No acute intracranial findings. 2. Moderate volume loss and nonspecific white matter disease, presumably moderate to severe chronic microangiopathy limiting assessment for superimposed acute ischemia which would be better evaluated on MRI. 3. No acute arterial occlusion or hemodynamically significant stenosis within the head or neck. 4. 1.5 mm inferiorly projecting infundibulum versus aneurysm arising from the terminal right ICA. 5. Enlarged, heterogeneous, multinodular thyroid gland which is not well assessed due to artifact and further evaluation with thyroid ultrasound is advised. Impression [address] Peterson at 6:07 PM on 06/20/2023 and it was ascertained that the content and urgency of the report was understood at the time of direct communication.
--- NOTE | ~2023-06-20 | CT_ITS ---
CT head for stroke CLINICAL INFORMATION: Reason for Exam Speech Aphasia COMPARISON: No prior CT scan available for comparison. TECHNIQUE: Department standard protocol. This CT examination was performed using dose optimization techniques as appropriate, variously including the following: *Automated exposure control *Adjustment of mA and/or kV according to patient size (this includes techniques or standardized protocols for targeted exams where dose is matched to indication/reason for exam; i.e. extremities or head) *Use of iterative reconstruction technique DLP: 587 mGy-cm FINDINGS: CEREBRAL HEMISPHERES: Suspicion for a small areas of infarct in the right frontoparietal region indeterminant age. No associated intracranial hemorrhage. BRAIN PARENCHYMA: Deep white matter and paraventricular hypoattenuation, nonspecific; most likely changes secondary to chronic ischemia due to microvascular angiopathy. SUBDURAL SPACE: No bleed. BASAL GANGLIA AND PINEAL GLAND: Unremarkable VENTRICLES: Symmetric and normal in size. CEREBELLUM AND BRAINSTEM: No space-occupying mass, hemorrhage or acute infarct. CEREBELLOPONTINE ANGLES: No lesion found. ORBITS: No intraorbital mass. VESSELS: Unremarkable SKULL BASE: Unremarkable INCLUDED SINUSES AT SKULL BASE: Clear SKULL AND SKIN: No fracture or bone lesion found. CT/CT head for stroke IMPRESSION: 1. Deep white matter and periventricular hypoattenuation, nonspecific; most likely sequela of chronic microvascular angiopathy ischemia. 2. Suspicion for possible small areas of infarct in the right frontoparietal region indeterminant age. No associated intracranial hemorrhage. This critical result was discussed with Dr. Peterson by telephone at 06/20/2023 5:51 PM and it was ascertained that the content and urgency of the report was understood at the time of direct communication.
--- NOTE | 2023-06-20 17:25 | ECG_ITS ---
Test Reason : ? STROKE Blood Pressure : / mmHG Vent. Rate : 063 BPM Atrial Rate : 063 BPM P-R Int : 158 ms QRS Dur : 080 ms QT Int : 420 ms P-R-T Axes : 034 047 034 degrees QTc Int : 429 ms Sinus rhythm with Premature atrial complexes with Aberrant conduction Otherwise normal ECG No previous ECGs available Referred By: Susan Peterson Electronically Signed By:CONSTANTIN LARA
--- NOTE | 2023-06-20 17:26 | ED.NEUROSD ---
HPI - Neuro Symptoms/Deficit General Chief Complaint: Stroke Stated Complaint: stroke alert Time Seen by Provider: 06/20/23 17:25 Source: patient Mode of arrival: EMS History of Present Illness HPI Narrative: 87-year-old female, diabetic, is brought in by EMS after she developed speech aphasia at 16:45, not on blood thinners, denies any history migraines, was noted to have low sugar-85, received supplemental glucose by EMS in route, EMS reports that she is significantly improved, patient still has complaints of difficulty word finding. Related Data Home Medications ?Medication ?Instructions ?Recorded ?Confirmed albuterol sulfate 90 mcg/actuation 2 puff inhalation Q4H 07/12/21 12/21/22 aerosol inhaler alprazolam 0.25 mg tablet 0.25 mg PO BEDTIME PRN insomnia 07/12/21 12/21/22 escitalopram oxalate 10 mg tablet 10 mg PO QPM 07/12/21 12/21/22 fluticasone propionate 50 spray intranasal 07/12/21 12/21/22 mcg/actuation nasal spray,suspension insulin aspar prot-insulin aspart 5 unit subcut TID 07/12/21 12/21/22 100 unit/mL (70-30) subcutaneous pen (Novolog Mix 70-30FlexPen U-100) insulin glargine 100 unit/mL (3 26 unit subcut BEDTIME 07/12/21 12/21/22 mL) subcutaneous pen (Basaglar KwikPen U-100 Insulin) lisinopril 20 mg tablet 20 mg PO DAILY 07/12/21 12/21/22 metoprolol tartrate 25 mg tablet 25 mg PO BID 07/12/21 12/21/22 rosuvastatin 10 mg tablet 10 mg PO BEDTIME 07/12/21 12/21/22 ursodiol 500 mg tablet 500 mg PO BID 11/22/21 12/21/22 pen needle, diabetic 31 gauge x #1,200 ea 10/10/2207/05 (BD Ultra-Fine Short Pen Needle) hydrocortisone acetate 25 mg 25 mg KS BID PRN 12/05/22 12/21/22 rectal suppository escitalopram oxalate 5 mg tablet 5 mg PO DAILY 06/20/23 Previous Rx's ?Medication ?Instructions ?Recorded famotidine 40 mg tablet 40 mg PO BID #90 tabs 12/05/22 gabapentin 300 mg capsule 300 mg PO TID 30 days #90 caps 12/21/22 valacyclovir 1 gram tablet 1,000 mg PO Q8H 10 days #30 tabs 12/21/22 lidocaine 5 % topical patch 2 patch topical DAILY #30 patches 01/16/23 acyclovir 5 % topical ointment 1 appl topical 6XD 7 days #30 grams 04/03/23 (Zovirax) magnesium oxide (Uro-Mag) 84.5 mg PO BID #60 caps 06/02/23 Allergies Allergy/AdvReac Type Severity Reaction Status Date / Time No Known Allergies Allergy Verified 06/20/23 17:49 [No Known Allergies*] Review of Systems Review of Systems: Pertinent positives and negatives as stated in [facility] Past Medical History Source: nursing notes reviewed Medical History Hyperlipidemia Hypertension Post herpetic neuralgia Herpes zoster Type 2 diabetes mellitus Surgical History Hx of cholecystectomy Hx of appendectomy Hx of knee surgery History of esophagogastroduodenoscopy (EGD) Hx of colonoscopy Social History Social History Household Members: Family Alcohol intake: never Patient Tobacco Use Status: Never used Tobacco Smoked in Last 30 Days: No Use of substances other than those prescribed or required for medical reasons: No Advance Directives: No Advance Directives Information Provided: No Physical Exam Vital Signs: Vital Signs: Last Vital Signs Temp 97.8 F 06/20/23 19:58 Pulse 71 06/20/23 19:58 Resp 18 06/20/23 19:58 BP 146/94 H 06/20/23 19:58 Pulse Ox 96 06/20/23 19:58 O2 Del Method Room Air 06/20/23 19:58 BMI result Body Mass Index 34.3 Medications Administered Discontinued Medications Generic Name Dose Route Start Last Admin Trade Name Freq PRN Reason Stop Dose Admin Aspirin 324 mg 06/20/23 19:43 06/20/23 20:01 Aspirin 81 Mg Tab.Chew PO 06/20/23 19:44 324 mg ONCE ONE Administration Lorazepam 1 mg 06/20/23 18:43 06/20/23 18:50 Lorazepam 2 Mg/Ml Vial IVPUSH 06/20/23 18:44 1 mg ONCE ONE Administration Medical Decision Making Medical Decision Making [facility] Narrative: 87-year-old female who presents with word-finding difficulties, was noted to have low blood sugar for her and received supplemental glucose, patient still has some difficulty with word finding otherwise NIH-0. Given new onset of symptoms will proceed with imaging studies and I will contact Neurology. 174: I discussed the case with Dr. Manzo who agrees with administration aspirin and that patient does not appear to be a TNK candidate at this time. He recommends admission with MRI tomorrow. He understands that any acute changes or findings will be communicated with him immediately. 174: [place], right frontal parietal small infarct, but could be chronic as there is significant evidence of microvascular changes. Will reach out to Dr Manzo. 180: Calling MRI for stat imaging, and [facility] reports no LVO or critical stenosis. academic services coordinator involved. 183: I further discussed the noncontrast CT scan findings with Dr. Manzo, neurology who agrees with proceeding with the MRI and he will read the study after completion. 1939: [facility], MRI of brain negative. I discussed with Dr. Manzo who agrees with admission for TIA and further evaluation. I reviewed all other investigations and hematologic indices negative for leukocytosis/anemia/but patient has stable thrombocytopenia. Coagulation studies are within normal limits. Chemistry indices negative for JOEY/electrolyte or liver enzyme derangements. Imaging studies as outlined above. 1944: I discussed case with inpatient hospitalist who accepts admission. Differential Diagnosis Differential Diagnoses: The differential diagnosis associated with the presentation includes Please see the discussion above Admission/Observation Consideration of admission/observation: Escalation of care including admission/observation considered Please see the discussion above Consult Healthcare Provider Management of the patient was discussed with: Hospitalist and Coordinator Cardiopulmonary Services Lab Data [facility] Lab Attestation statement: I reviewed the patient's lab results. Please see the discussion above 06/20/23 18:40 06/20/23 18:40 Labs: Lab Results 06/20/23 06/20/23 Range/Units 17:24 18:40 WBC 7.2 (4.8-10.8) X10*3/uL RBC 4.23 (4.20-5.50) X10*6/uL Hgb 12.1 (12.0-16.0) g/dl Hct 37.9 (37.0-47.0) % MCV 89.6 (80.0-98.0) fL MCH 28.6 (27.0-33.0) pg MCHC 31.9 (31.0-35.0) g/dl RDW 13.1 (11.0-16.0) % Plt Count 150 L (160-400) X10*3/uL MPV 11.7 (9.4-12.3) fL Immature Gran % (Auto) 0.4 (0.0-0.4) % Neut % (Auto) 62.7 (45-73) % Lymph % (Auto) 28.3 (20-40) % Rutherford % (Auto) 6.0 (2-11) % Eos % (Auto) 2.2 (0-4) % Baso % (Auto) 0.4 (0-2) % Lymph # (Auto) 2.0 (1.2-4.9) X10*3/uL R[place]ford # (Auto) 0.4 (0.1-1.2) X10*3/uL Eos # (Auto) 0.2 (0.0-0.4) X10*3/uL Baso # (Auto) 0.0 (0.0-0.2) X10*3/uL Abs Immat Gran (auto) 0.03 (0.00-0.03) X10*3/uL Absolute Neuts (auto) 4.5 (2.0-8.3) x10*3/uL Absolute Nucleated RBC 0.000 (0.0-0.012) X10*3/uL Nucleated RBC % (auto) 0.0 (0.0-0.2) /100WBC PT 11.6 (11.1-13.3) SEC Whole Blood PT 12.5 (11.1-13.5) sec INR 1.0 (0.9-1.1) Whole Blood INR 1.0 (0.9-1.1) APTT 30.3 (26.0-36.8) SEC Sodium 139 (135-145) mmol/L Potassium 4.2 (3.3-5.1) mmol/L Chloride 103 (96-108) mmol/L Carbon Dioxide 27 (22-29) mmol/L Anion Gap 13 (12-20) BUN 19 H (9-16) mg/dL Creatinine 1.17 (0.5-1.4) mg/dL Estim Creat Clear Calc 34.2 Estimated GFR 44 POC Glucose 155 H (60-115) mg/dL Random Glucose 100 (60-115) mg/dL Calcium 9.2 (8.4-10.2) mg/dL Total Creatine Kinase 60 (26-140) U/L Troponin I High Sens 6.0 (<3.5-17.0) ng/L Independent Interpretation I performed an independent interpretation of an: EKG Interpretation: Sinus rhythm with PACs, HR-63, no STEMI, KS/QRS/QTC is within normal limits. Radiology Impression Discussion of test interpretation with radiology: I have reviewed the radiologist's reading. Radiologist Impression: Please see the discussion above External Record Review External record reviewed: Outpatient record, Prior outpatient labs and Prior outpatient radiology Chronic Conditions Patient?s care impacted by: Diabetes and Hypertension NIH Stroke Scale Internal: Initial- Upon Arrival Level of Consciousness: Alert Level of Consciousness Questions: Answers both questions correctly Level of Consciousness Commands: Performs both tasks correctly Best Gaze: Normal Visual: No visual loss Facial Palsy: Normal Motor Arm (Right): No drift Motor Arm (Left): No drift Motor Leg (Right): No drift Motor Leg (Left): No drift Limb Ataxia: Absent Sensory: Normal Best Language: No aphasia Dysarthia: Normal Extinction and Inattention: No abnormality Score: 0 Critical Care Time Critical Care Time Critical Care Time: Yes Total Critical Care Time: 60 Attestation: I personally attest to this time spent taking care of the patient. Discharge Plan Discharge Clinical Impression: Brain TIA Patient Disposition: Admitted As Inpatient Print Language: Jamaican
[2023-06-20 17:27] LABS: Prothrombin Time Whole Bld POC 12.5 sec (11.1-13.5)
[2023-06-20 17:28] LABS: Glucose, Whole Blood 155 mg/dL (60-115)
[2023-06-20 17:42] VITALS: BP 121/76; PULSE 87; O2SAT 98
[2023-06-20 17:48] VITALS: BP 129/95; PULSE 60; RESP 16; TEMP 36.9; O2SAT 65; BMI 34.3
[2023-06-20 18:46] LABS: MANUAL DIFF FLAG NO
[2023-06-20] MEDS: LORazepam 2 MG/ML VIAL 1 MG IVPUSH (18:50)
[2023-06-20 19:01] LABS: Anion Gap 13 (12-20); Blood Urea Nitrogen 19 mg/dL (9-16); Calcium 9.2 mg/dL (8.4-10.2); Carbon Dioxide 27 mmol/L (22-29); Chloride 103 mmol/L (96-108); Creatinine Clr Calc Pharmacy 34.2; Estimated Glomerular Filt Rate 44; Glucose Random 100 mg/dL (60-115); Potassium 4.2 mmol/L (3.3-5.1); Prothrombin Time 11.6 SEC (11.1-13.3); Sodium 139 mmol/L (135-145)
[2023-06-20 19:03] LABS: Partial Thromboplastin Time 30.3 SEC (26.0-36.8)
[2023-06-20 19:06] LABS: Stroke Lab Use COMPLETE
--- NOTE | 2023-06-20 19:11 | PC.NURSE ---
This RN assumed pt care @ 1900.
[2023-06-20 19:21] LABS: Basophils Percent Auto 0.4 % (0-2); Eosinophils Absolute Auto 0.2 X10*3/uL (0.0-0.4); Eosinophils Percent Auto 2.2 % (0-4); Hematocrit 37.9 % (37.0-47.0); Hemoglobin 12.1 g/dl (12.0-16.0); Imm Gran Abs Auto 0.03 X10*3/uL (0.00-0.03); Imm Gran Pct Auto 0.4 % (0.0-0.4); Lymphocytes Percent Auto 28.3 % (20-40); Mean Corpuscular HGB Conc 31.9 g/dl (31.0-35.0); Mean Corpuscular Hemoglobin 28.6 pg (27.0-33.0); Mean Corpuscular Volume 89.6 fL (80.0-98.0); Mean Platelet Volume 11.7 fL (9.4-12.3); Monocytes Absolute Auto 0.4 X10*3/uL (0.1-1.2); Neutrophils Absolute Auto 4.5 x10*3/uL (2.0-8.3); Neutrophils Percent Auto 62.7 % (45-73); Platelet Count 150 X10*3/uL (160-400); Red Blood Count 4.23 X10*6/uL (4.20-5.50); Red Cell Distribution Width 13.1 % (11.0-16.0); White Blood Count 7.2 X10*3/uL (4.8-10.8)
--- NOTE | 2023-06-20 19:29 | PC.NURSE ---
Per Dr Hunter, MRI to call Dr. Manzo once MRI complete. This RN called and spoke with MRI and notified them to called Dr. Manzo once MRI done. Per MRI pt keeps moving her head, so unsure how clear image will be but pt should be done in another 2 mins. Plan of care ongoing.
--- NOTE | 2023-06-20 19:54 | P.HPHOSP_ITS ---
History of Present Illness Date of Service: 06/20/23 Attending physician on admission: Pavel Galaviz Chief Complaint: word finding difficulty, migraine with aura 87-year-old female with history of hypertension, insulin-dependent type 2 diabetes, hyperlipidemia, post herpetic neuralgia, primary biliary cholangitis, history of migraine wiht aura history presented to the ED via EMS after developing sudden onset aphasia at around 16:45 this afternoon. She states at the same time of symptom onset, she was experiencing aura starting in the right eye migrating to the left with associated migraine like headache. States she typically gets migraines that start with aura in the left eye radiating to the right this headache was slightly different. Since then, still complaining of difficulty with word finding. She has not on any blood thinners. Denies any facial droop, focal weakness or paresthesias, confusion, gait disturbance, shortness of breath, lightheadedness, headache, chest pain. On arrival, vital signs stable. Hematology studies unremarkable. Renal function electrolyte levels normal. Troponin detectable but within normal limits at 6. 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 CTA of the head/neck negative for any large vessel occlusion or hemodynamically significant stenosis mother is a 1.5 mm inferior leads projecting infundibulum versus aneurysm arising from the terminal right ICA as well as an enlarged, heterogenous, multinodular thyroid gland with recommended outpatient follow-up. MR of the brain performed in the ED which is negative for any acute intracranial abnormality again showing moderate volume loss and nonspecific white matter disease. ED did discuss case with Neurology who did not recommend treatment with TNK. In the ED orderd for 324mg asa. She will be observed overnight for TIA. Review of Systems 2 Review of Systems: General: No fevers, malaise, unintentional weight loss HEENT: No blurred vision, diplopia. No sore throat, nasal congestion, rhinorrhea, sinus pain, ear pain Cardiovascular: No chest pain, palpitations, or leg edema Respiratory: No shortness of breath, wheezing, cough GI: No abdominal pain, nausea, vomiting, diarrhea, constipation, melena, hematochezia : No dysuria, hematuria, increased urinary frequency, decreased urinary output MSK: No myalgia, back pain Neuro: No weakness, paresthesias, facial droop, slurred speech. +expressive aphasia, +headache, +aura Skin: No rashes or lesions [facility] Medical History Hyperlipidemia Hypertension Post herpetic neuralgia Herpes zoster Type 2 diabetes mellitus Surgical History Hx of cholecystectomy Hx of appendectomy Hx of knee surgery History of esophagogastroduodenoscopy (EGD) Hx of colonoscopy Social History Household Members: Family Alcohol intake: never Patient Tobacco Use Status: Never used Tobacco Smoked in Last 30 Days: No Use of substances other than those prescribed or required for medical reasons: No Advance Directives: No Advance Directives Information Provided: No Meds Allergies Allergy/AdvReac Type Severity Reaction Status Date / Time No Known Allergies Allergy Verified 06/20/23 17:49 [No Known Allergies*] Home Medications ?Medication ?Instructions ?Recorded ?Confirmed ?Last Taken ?Type albuterol sulfate 90 mcg/actuation 2 puff inhalation Q4H 07/12/21 06/20/23 Unknown History aerosol inhaler alprazolam 0.25 mg tablet 0.25 mg PO BEDTIME PRN insomnia 07/12/21 06/20/23 Unknown History escitalopram oxalate 10 mg tablet 10 mg PO QPM 07/12/21 06/20/23 Unknown History fluticasone propionate 50 1 spray intranasal DAILY PRN 07/12/21 06/20/23 Unknown History mcg/actuation nasal Congestion spray,suspension insulin aspar prot-insulin aspart 5 unit subcut TIDAC 07/12/21 06/20/23 06/20/23 History 100 unit/mL (70-30) subcutaneous pen (Novolog Mix 70-30FlexPen U-100) insulin glargine 100 unit/mL (3 26 unit subcut DAILY 07/12/21 06/20/23 06/20/23 History mL) subcutaneous pen (Basaglar KwikPen U-100 Insulin) lisinopril 20 mg tablet 20 mg PO DAILY 07/12/21 06/20/23 Unknown History metoprolol tartrate 25 mg tablet 25 mg PO BID 07/12/21 06/20/23 Unknown History rosuvastatin 10 mg tablet 10 mg PO BEDTIME 07/12/21 06/20/23 Unknown History ursodiol 500 mg tablet 500 mg PO BID 11/22/21 06/20/23 06/20/23 History pen needle, diabetic 31 gauge x #1,200 ea 10/10/22 Unknown History 07/05 (BD Ultra-Fine Short Pen Needle) hydrocortisone acetate 25 mg 25 mg AL BID PRN Hemorrhoids 12/05/22 06/20/23 Unknown History rectal suppository calcium carbonate 500 mg PO DAILY 06/20/23 06/20/23 Unknown History cholecalciferol (vitamin D3) 25 25 mcg PO DAILY 06/20/23 06/20/23 Unknown History mcg (1,000 unit) tablet cyanocobalamin (vitamin B-12) 1,000 mcg PO DAILY 06/20/23 06/20/23 Unknown History 1,000 mcg tablet escitalopram oxalate 5 mg tablet 5 mg PO DAILY 06/20/23 06/20/23 06/20/23 History omeprazole 20 mg capsule,delayed 20 mg PO DAILY@0630 06/20/23 06/20/23 Unknown History release vitamin E 400 unit tablet 400 unit PO DAILY 06/20/23 06/20/23 Unknown History Physical Exam 2 Vital Signs and Narrative: Vital Signs: Last Vital Signs Temp 98.4 F 06/20/23 17:48 Pulse 60 06/20/23 17:48 Resp 16 06/20/23 17:48 BP 129/95 H 06/20/23 17:48 Pulse Ox 65 L 06/20/23 17:48 O2 Del Method Room Air 06/20/23 17:48 BMI result Body Mass Index 34.3 Constitutional - Awake and Alert, No apparent distress Eyes - PERRLA, EOMI Cardiovascular - S1S2, RRR, No edema Respiratory - Normal lung expansion, Normal respiratory effort, No respiratory distress, CTA bilaterally Gastrointestinal - NT / ND; +BS; No rebound or guarding Extremities - no calf tenderness bilaterally, no swelling Skin - Warm/Dry Neurological - Alert & oriented x3, expressive aphasia otherwise CN II-XII in tact, 5/5 strength BUE and BLE Psychological - Appropriate affect Results Labs 06/20/23 18:40 06/20/23 18:40 Labs: Laboratory Results - last 24 hr 06/20/23 06/20/23 17:24 18:40 MCV 89.6 MCH 28.6 MCHC 31.9 RDW 13.1 Plt Count 150 L MPV 11.7 Immature Gran % (Auto) 0.4 Neut % (Auto) 62.7 Lymph % (Auto) 28.3 Martin % (Auto) 6.0 Eos % (Auto) 2.2 Baso % (Auto) 0.4 Lymph # (Auto) 2.0 Martin # (Auto) 0.4 Eos # (Auto) 0.2 Baso # (Auto) 0.0 Abs Immat Gran (auto) 0.03 Absolute Neuts (auto) 4.5 Absolute Nucleated RBC 0.000 Nucleated RBC % (auto) 0.0 PT 11.6 Whole Blood PT 12.5 INR 1.0 Whole Blood INR 1.0 APTT 30.3 Anion Gap 13 Estim Creat Clear Calc 34.2 Estimated GFR 44 POC Glucose 155 H Random Glucose 100 Calcium 9.2 Total Creatine Kinase 60 Troponin I High Sens 6.0 Imaging Radiologist's Impressions: Impressions Head CT 06/20/23 17:25 IMPRESSION: 1. Deep white matter and periventricular hypoattenuation, nonspecific; most likely sequela of chronic microvascular angiopathy ischemia. 2. Suspicion for possible small areas of infarct in the right frontoparietal region indeterminant age. No associated intracranial hemorrhage. This critical result was discussed with Dr. Peterson by telephone at 06/20/2023 5:51 PM and it was ascertained that the content and urgency of the report was understood at the time of direct communication. Head/Neck CTA 06/20/23 17:50 IMPRESSION: 1. No acute intracranial findings. 2. Moderate volume loss and nonspecific white matter disease, presumably moderate to severe chronic microangiopathy limiting assessment for superimposed acute ischemia which would be better evaluated on MRI. 3. No acute arterial occlusion or hemodynamically significant stenosis within the head or neck. 4. 1.5 mm inferiorly projecting infundibulum versus aneurysm arising from the terminal right ICA. 5. Enlarged, heterogeneous, multinodular thyroid gland which is not well assessed due to artifact and further evaluation with thyroid ultrasound is advised. Impression [address] Peterson at 6:07 PM on 06/20/2023 and it was ascertained that the content and urgency of the report was understood at the time of direct communication. Brain MRI 06/20/23 19:29 IMPRESSION: 1. No acute intracranial abnormality. 2. Moderate volume loss and nonspecific white matter disease, presumably severe chronic microangiopathy or other chronic white matter process. Assessment and Plan (1) Expressive aphasia: Status: Acute Plan 87-year-old female with history of hypertension, insulin-dependent type 2 diabetes, hyperlipidemia, post herpetic neuralgia, primary biliary cholangitis history, migraine with aura to be observed for expressive aphasia r/t TIA vs complex migraine #Expressive aphasia -r/t TIA vs complex migraine. Has hx migraine with aura -CT head negative for acute intracranial abnormality. CTA head/neck negative for large vessel occlusion or hemodynamically significant stenosis. MRI of the brain also negative for any acute intracranial abnormality. 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 Continue 81 mg aspirin daily -lipid profile pending. Atorvastatin 80 mg daily -echocardiogram -neurology consult -passed bedside swallow evaluation. Neuro checks -trial of Fioricet -PT, OT, [employer]MAIL [employer]UCER evaluation #insulin-dependent type 2 diabetes-without hyperglycemia -hemoglobin A1c pending -POC glucose, diabetic diet -dose adjusted Lantus, Admelog on sliding scale # hypertension -hold antihypertensive agents to allow for permissive hypertension as needed. Resume as appropriate # HLD -statin # mood disorder -continue home meds DVT prophylaxis-heparin Full code Quality Stroke Does the patient have a stroke diagnosis?: Yes Reason for No Anti-thrombotic by Day Two: Drug treatment not indicated VTE Prior VTE?: No VTE Risk Level:: Medical - moderate - high VTE Device Contraindication: Treatment Not Indicated VTE Drug Contraindication: N/A - Med Ordered
[2023-06-20 19:58] VITALS: BP 146/94; PULSE 71; RESP 18; TEMP 36.6; O2SAT 96
[2023-06-20] MEDS: Aspirin 81 MG TAB.CHEW 324 MG PO (20:01)
--- NOTE | 2023-06-20 20:10 | PC.NURSE ---
upon arrival to ED pt alert, oriented, responds to verbal stimuli. Strength equal in bilateral extremities, no facial droop noted. Pt does have difficulty finding their words and reports feeling off. nursing swallow PASS, PO ASA given
[2023-06-20 20:33] LABS: Cholesterol 236 mg/dL (<200); HDL Cholesterol 59 mg/dL (>40); LDL Cholesterol Calculated 150 mg/dL (<100); Triglycerides 135 mg/dL (<150)
--- NOTE | 2023-06-20 21:07 | PC.NURSE ---
Pts poc 76, no insulin coverage needed per sliding scale. Per lab support service tech walked in on pt eating a subway sandwich. Plan of care ongoing.
[2023-06-20 21:09] LABS: Glucose, Whole Blood 76 mg/dL (60-115)
[2023-06-20] MEDS: Butalb/Acetamin/Caff 50/325/40 TABLET 1 TAB PO (21:15)
[2023-06-20] MEDS: Heparin Sodium,Porcine 5,000 UNIT/ML VIAL 5000 UNIT SUBCUT (21:16)
--- NOTE | 2023-06-20 21:18 | PHA.MEDREC ---
Pharmacy Consult ? Medication Reconciliation Pharmacy has completed the medication reconciliation. patient confirmed medications based on claim history and previous medical records. Patient reports her insulins are being change due to insurance issues. She is currently taking Basaglar and Novolog 70/30 and has not switch over to the new insulins yets. Patient confirmed she was taking metoprolol even last fill was in february x 30 days. When I asked why shes taking it, she says he has no heart problems and her medications are only preventative. Informed KENNETH Younger. Stacia Lopez, TrenaD
--- NOTE | 2023-06-20 22:03 | MHC.EDTECH ---
pt belongings list completed for admission and placed into patients chart
[2023-06-21 00:17] VITALS: BP 124/65; PULSE 72; RESP 20; TEMP 36.8; O2SAT 94
[2023-06-21 00:25] LABS: Glucose, Whole Blood 161 mg/dL (60-115)
[2023-06-21 02:49] VITALS: BP 139/59; PULSE 65; RESP 20; TEMP 36.7; O2SAT 94
[2023-06-21 03:44] VITALS: BMI 33.8
[2023-06-21 04:00] VITALS: BP 137/68; PULSE 66; RESP 20; TEMP 36.8; O2SAT 96
[2023-06-21] MEDS: Acetaminophen 325 MG TABLET 650 MG PO (04:46)
[2023-06-21] MEDS: 0.9 % Sodium Chloride Flush 3 ML SYRINGE IVFLUSH ×2 (05:17→08:33)
[2023-06-21 06:00] LABS: Estimated Average Glucose 157 mg/dL; Hemoglobin A1c % 7.1 % (<6.0)
--- NOTE | 2023-06-21 07:00 | CA_ITS ---
Transthoracic Echocardiogram Patient (Last, First, Middle): Sola Knight D Gender: Female Date of : 1935 Age: 87 Procedure Date: 06/21/2023 Procedure Type: Transthoracic [place]ogram [place] [facility] [place]: 154.94 cm Weight: 80.74 kg BSA: 1.80 m2 Heart Rate: 67 bpm BP: 137 / 68 mmHg Chicken Handler: SB Referring MD: Carisa COOPER Symptoms: tia Study Quality: Adequate ECG Rhythm: Sinus Conclusions: - The left ventricular systolic function is normal. The calculated ejection fraction is 64% by biplane method. - Evidence suggests grade II (moderate) diastolic dysfunction. - There is mild calcification of the aortic valve. - There is mild mitral annular calcification. - Mild pulmonary hypertension is present. Findings Left Ventricle Normal left ventricular cavity size. There is normal left ventricular wall thickness. The left ventricular systolic function is normal. The calculated ejection fraction is 64% by biplane method. There is no evidence of regional wall motion abnormalities. Evidence suggests grade II (moderate) diastolic dysfunction. Mild focal hypertrophy of the basal septum. Right Ventricle Normal right ventricular cavity size. There is mildly decreased right ventricular systolic function. Atria The left atrium is mildly dilated. The right atrium is normal in size. Aortic Valve There is a normal trileaflet aortic valve. There is mild calcification of the aortic valve. There is no aortic valve stenosis. There is no aortic valve regurgitation. Mitral Valve There is mild mitral annular calcification. There is trace mitral valve regurgitation. There is no mitral valve stenosis. Pulmonic Valve The pulmonic valve is likely normal. Tricuspid Valve Normal tricuspid valve structure. There is mild tricuspid valve regurgitation. Mild pulmonary hypertension is present. Great Vessels The asc aorta is normal in size. Venous The inferior vena cava is normal in size and collapses greater than 50% with inspiration. Pericardium/Pleural There is no evidence of pericardial effusion. Prior Study Comparison Changes noted compared to prior study dated: 04/20/2018. Recommendations, Care & Conclusions No obvious valvular pathology seen on this study. Measurements 2D Linear Measurements IVSd: 0.81 0.6-0.9/0.6-1.0 cm LVIDd: 4.52 3.9-5.3/4.2-5.9 cm LVIDd Index: 2.51 2.4-3.2/2.2-3.1 cm/m2 LVIDs: 2.83 2.0-3.6 cm LVPWd: 0.85 0.7-1.1 cm LA Diam: 4.10 2.7-3.8/3.0-4.0 cm LAIDs Index: 2.28 1.5-2.3 cm/m2 LV Mass: 148.72 67-162/88-224 g LV Mass Index: 82.62 43-95/49-115 g/m2 LVOT Diam: 2.00 3.0+(-)1.3 cm 2D Systolic Function EF 4C: 66.60 >55% EF 2C: 57.30 >55% EF BiP: 64.00 >55% Mitral Valve MV Pk E: 1.06 MV PK A: 0.66 MV Decel Time: 190.00 E/A: 1.60 E'Lateral: 7.07 E'Medial: 3.81 E/E' Med: 27.80 E/E' Lat: 15.00 PHT: 56.00 MVA PHT: 3.93 Decel [place]: 5.57 Aortic Valve AoV Pk Everardo: 1.66 AoV Mn Everardo: 1.23 AoV VTI: 0.40 AoV Pk Grad: 11.00 Aov Mn Grad: 7.00 PINKY Cont.VTI: 1.68 LVOT LVOT Pk Everardo: 0.93 LVOT Mn Everardo: 0.64 LVOT VTI: 0.21 LVOT Pk Grad: 3.00 LVOT Mn Grad: 2.00 LVOT Diam: 2.00 LVOT Area: 3.14 Diastolic Function MV Pk E: 1.06 MV Pk A: 0.66 E/A: 1.60 E'Medial: 3.81 E/E' Med: 27.80 E' Laterial: 7.07 E/E' Lat: 15.00 Right Ventricle TAPSE (mm): 18.20 Tricuspid Valve TR Pk Everardo: 2.89 TR Pk Grad: 33.00 RA Press: 3.00 RVSP: 36.00 Great Vessels Aorta Sinus of Valsalva: 2.80 2.0-3.5 cm Ao Asc: 3.40 2.1-3.4 cm Pulmonary Veins Pulm Vein S/D 0.90 Pulmonary Valve PV Pk Everardo: 0.81 Peak PV Grad: 3.00 Updated in Other Vendor System with Status of Final Lionel Ratliff MD electronically signed on 06/21/2023 11:53:20 AM with status of Final
--- NOTE | 2023-06-21 07:53 | P.PNIM_ITS ---
Subjective Subjective Date of Service: 06/21/23 Physical Exam 2 Vital Signs: Vital Signs: Last Vital Signs Temp 98.2 F 06/21/23 04:00 Pulse 66 06/21/23 04:00 Resp 20 06/21/23 04:00 BP 137/68 06/21/23 04:00 Pulse Ox 96 06/21/23 04:00 O2 Del Method Room Air 06/21/23 04:00 BMI result Body Mass Index 33.8 Objective Data Active Medications Acetaminophen (Acetaminophen 325 Mg Tablet) 650 mg PO Q6H PRN PRN Reason: Pain, Mild (Pain Scale 1-3) Last Admin: 06/21/23 04:46 Dose: 650 mg Documented By: AGUSTIN Aspirin (Aspirin Enteric Coated 81 Mg Tablet.Dr) 81 mg PO DAILY [facility] Atorvastatin Calcium (Atorvastatin Calcium 80 Mg Tablet) 80 mg PO DAILY [facility] Glucose (Glucose Gel 15 Gm Gel..Gram.) 15 gm PO Q15M PRN; Protocol PRN Reason: per Hypoglycemia Standing Ord. Heparin Sodium (Porcine) (Heparin Sodium,Porcine 5,000 Unit/Ml Vial) 5,000 unit SUBCUT Q12H [facility] Last Admin: 06/20/23 21:16 Dose: 5,000 unit Documented By: NALINI Dextrose (D10) 250 mls @ 750 mls/hr IV Q15M PRN; Protocol PRN Reason: per Hypoglycemia Standing Ord. Insulin Glargine (Insulin Glargine,Hum.Rec.Anlog 100 Unit/Ml 10 Ml Vial) 18 unit SUBCUT DAILY [facility] Insulin Human Lispro (Insulin Lispro 100 Unit/Ml 3 Ml Vial) 0 unit SUBCUT QIDACHS [facility]; Protocol Last Admin: 06/20/23 21:07 Dose: Not Given Documented By: NALINI Non-Admin Reason: No Insulin Coverage Ondansetron HCl (Ondansetron Hcl 4 Mg/2 Ml Vial) 4 mg IVPUSH Q8H PRN PRN Reason: Nausea and Vomiting Senna (Sennosides 8.6 Mg Tablet) 17.2 mg PO BEDTIME PRN PRN Reason: Constipation Sodium Chloride (0.9 % Sodium Chloride Flush 3 Ml Syringe) 3 ml IVFLUSH QSHIFT [facility] Last Admin: 06/21/23 05:17 Dose: 3 ml Documented By: LEO Labs 06/20/23 18:40 06/20/23 18:40 Labs: Laboratory Results - last 24 hr 06/20/23 06/20/23 06/20/23 17:24 18:40 21:05 MCV 89.6 MCH 28.6 MCHC 31.9 RDW 13.1 Plt Count 150 L MPV 11.7 Immature Gran % (Auto) 0.4 Neut % (Auto) 62.7 Lymph % (Auto) 28.3 Howard % (Auto) 6.0 Eos % (Auto) 2.2 Baso % (Auto) 0.4 Lymph # (Auto) 2.0 Howard # (Auto) 0.4 Eos # (Auto) 0.2 Baso # (Auto) 0.0 Abs Immat Gran (auto) 0.03 Absolute Neuts (auto) 4.5 Absolute Nucleated RBC 0.000 Nucleated RBC % (auto) 0.0 PT 11.6 Whole Blood PT 12.5 INR 1.0 Whole Blood INR 1.0 APTT 30.3 Anion Gap 13 Estim Creat Clear Calc 34.2 Estimated GFR 44 POC Glucose 155 H 76 Random Glucose 100 Estimat Average Glucose 157 Hemoglobin A1c % 7.1 H Calcium 9.2 Total Creatine Kinase 60 Troponin I High Sens 6.0 Triglycerides 135 Cholesterol 236 H LDL Cholesterol, Calc 150 H HDL Cholesterol 59 06/21/23 00:21 MCV MCH MCHC RDW Plt Count MPV Immature Gran % (Auto) Neut % (Auto) Lymph % (Auto) Howard % (Auto) Eos % (Auto) Baso % (Auto) Lymph # (Auto) Howard # (Auto) Eos # (Auto) Baso # (Auto) Abs Immat Gran (auto) Absolute Neuts (auto) Absolute Nucleated RBC Nucleated RBC % (auto) PT Whole Blood PT INR Whole Blood INR APTT Anion Gap Estim Creat Clear Calc Estimated GFR POC Glucose 161 H Random Glucose Estimat Average Glucose Hemoglobin A1c % Calcium Total Creatine Kinase Troponin I High Sens Triglycerides Cholesterol LDL Cholesterol, Calc HDL Cholesterol Quality Stroke Does the patient have a stroke diagnosis?: Yes Reason for No Anti-thrombotic by Day Two: Drug treatment not indicated VTE Prior VTE?: No VTE Risk Level:: Medical - moderate - high VTE Device Contraindication: Treatment Not Indicated VTE Drug Contraindication: N/A - Med Ordered
[2023-06-21 08:00] VITALS: BP 152/69; PULSE 66; RESP 18; TEMP 36.5; O2SAT 96
[2023-06-21 08:22] LABS: Glucose, Whole Blood 83 mg/dL (60-115)
[2023-06-21] MEDS: Aspirin Enteric Coated 81 MG TABLET.DR PO (08:32)
[2023-06-21] MEDS: Atorvastatin Calcium 80 MG TABLET PO (08:33)
[2023-06-21] MEDS: Heparin Sodium,Porcine 5,000 UNIT/ML VIAL 5000 UNIT SUBCUT (08:33)
[2023-06-21 08:36] VITALS: BP 152/69; PULSE 66; O2SAT 96
--- NOTE | 2023-06-21 08:40 | MHC.CM.PN ---
CM met with Patient at bedside and addressed OLSON with her, providing Patient with the original and a copy has been placed on the chart. CM assisted Patient with the completion of a HCP; she named her Daughter/Nicole as her Agent. OT is recommending no services; Patient may benefit from a PT eval to assist with disposition. CM has initiated and will follow for dc planning. Patient lives alone in an apartment and she required no services (she canceled her [employer]) nor DME GOLD TOOLER. PCP is Dr. Gregory Carrion.
[2023-06-21] MEDS: Butalb/Acetamin/Caff 50/325/40 TABLET 1 TAB PO (09:15)
[2023-06-21] MEDS: Insulin Glargine,Hum.rec.anlog 100 UNIT/ML 10 ML VIAL 10 UNIT SUBCUT (09:16)
--- NOTE | 2023-06-21 09:55 | MHC.SLORD ---
Speech Language Pathology Order Status: Patient seen by TRAY SERVICE WORKER this morning prior to hospitalist cancelling TRAY SERVICE WORKER consult order. Patient presents w/ swallow, oral motor exam, speech, and language all WFL. Patient reports no concerns at this time in any of these areas and that her speech/language resolved back to baseline. Patient reports she has headache and feels a little off and fuzzy. Recommend re-refer to TRAY SERVICE WORKER if any concerns for swallow/speech/language arise.
--- NOTE | 2023-06-21 10:39 | PM.NEUROCN ---
History of Present Illness Data of Consult Service Date: 06/21/23 Primary Care Provider: Gregory Carrion MD HPI 87-year-old female with history of hypertension, insulin-dependent type 2 diabetes, hyperlipidemia, post herpetic neuralgia, primary biliary cholangitis, history of migraine with aura, developed sudden onset aphasia at around 16:45 on 06/20/23. She states at the same time of symptom onset, she was experiencing aura starting in the right eye migrating to the left with associated migraine like headache. States she typically gets migraines that start with aura in the left eye radiating to the right this headache was slightly different. The speech problem lasted 2 hours and the visual aura 30 minutes. She has not on any blood thinners. Denies any facial droop, focal weakness or paresthesias, confusion, gait disturbance, shortness of breath, lightheadedness, headache, chest pain. MRI shows no acute findings. Moderately severe deep white matter microvascular changes, CTA without any hemodynamically significant stenosis Review of Systems Review of Systems: General: No fevers, malaise, unintentional weight loss HEENT: No blurred vision, diplopia. No sore throat, nasal congestion, rhinorrhea, sinus pain, ear pain Cardiovascular: No chest pain, palpitations, or leg edema Respiratory: No shortness of breath, wheezing, cough GI: No abdominal pain, nausea, vomiting, diarrhea, constipation, melena, hematochezia : No dysuria, hematuria, increased urinary frequency, decreased urinary output MSK: No myalgia, back pain Neuro: No weakness, paresthesias, facial droop, slurred speech. +expressive aphasia, +headache, +aura Skin: No rashes or lesions PMFSH Past Medical History Medical History Hyperlipidemia Hypertension Post herpetic neuralgia Herpes zoster Type 2 diabetes mellitus Surgical History Surgical History Hx of cholecystectomy Hx of appendectomy Hx of knee surgery History of esophagogastroduodenoscopy (EGD) Hx of colonoscopy Social History Social History Household Members: None Housing: Other Housing Other:: senior housing Do you presently have visiting nurse or other home services: No Alcohol intake: never Patient Tobacco Use Status: Former Tobacco user Tobacco use type: Cigarette Cigarette Packs Per Day: 1 Cigarettes Per Day: 20.0 Years Smoked: 36 service: No Meds Allergies Allergy/AdvReac Type Severity Reaction Status Date / Time No Known Allergies Allergy Verified 06/20/23 17:49 [No Known Allergies*] Active Medications: Current Medications Acetaminophen (Acetaminophen 325 Mg Tablet) 650 mg PO Q6H PRN PRN Reason: Pain, Mild (Pain Scale 1-3) Last Admin: 06/21/23 04:46 Dose: 650 mg Acetaminophen/Butalbital/Caffeine (Butalb/Acetamin/Caff 50/325/40 Tablet) 1 tab PO Q4H PRN PRN Reason: Migraine Headache Last Admin: 06/21/23 09:15 Dose: 1 tab Aspirin (Aspirin Enteric Coated 81 Mg Tablet.) 81 mg PO DAILY [facility] Last Admin: 06/21/23 08:32 Dose: 81 mg Atorvastatin Calcium (Atorvastatin Calcium 80 Mg Tablet) 80 mg PO DAILY [facility] Last Admin: 06/21/23 08:33 Dose: 80 mg Glucose (Glucose Gel 15 Gm Gel..Gram.) 15 gm PO Q15M PRN; Protocol PRN Reason: per Hypoglycemia Standing Ord. Heparin Sodium (Porcine) (Heparin Sodium,Porcine 5,000 Unit/Ml Vial) 5,000 unit SUBCUT Q12H [facility] Last Admin: 06/21/23 08:33 Dose: 5,000 unit Dextrose (D10) 250 mls @ 750 mls/hr IV Q15M PRN; Protocol PRN Reason: per Hypoglycemia Standing Ord. Insulin Glargine (Insulin Glargine,Hum.Rec.Anlog 100 Unit/Ml 10 Ml Vial) 10 unit SUBCUT DAILY [facility] Last Admin: 06/21/23 09:16 Dose: 10 unit Insulin Human Lispro (Insulin Lispro 100 Unit/Ml 3 Ml Vial) 0 unit SUBCUT QIDACHS [facility]; Protocol Last Admin: 06/21/23 08:23 Dose: Not Given Ondansetron HCl (Ondansetron Hcl 4 Mg/2 Ml Vial) 4 mg IVPUSH Q8H PRN PRN Reason: Nausea and Vomiting Senna (Sennosides 8.6 Mg Tablet) 17.2 mg PO BEDTIME PRN PRN Reason: Constipation Sodium Chloride (0.9 % Sodium Chloride Flush 3 Ml Syringe) 3 ml IVFLUSH QSHIFT GODWIN Last Admin: 06/21/23 08:33 Dose: 3 ml Home Medications ?Medication ?Instructions ?Recorded ?Confirmed ?Last Taken ?Type albuterol sulfate 90 mcg/actuation 2 puff inhalation Q4H 07/12/21 06/20/23 Unknown History aerosol inhaler alprazolam 0.25 mg tablet 0.25 mg PO BEDTIME PRN insomnia 07/12/21 06/20/23 Unknown History escitalopram oxalate 10 mg tablet 10 mg PO QPM 07/12/21 06/20/23 Unknown History fluticasone propionate 50 1 spray intranasal DAILY PRN 07/12/21 06/20/23 Unknown History mcg/actuation nasal Congestion spray,suspension insulin aspar prot-insulin aspart 5 unit subcut TIDAC 07/12/21 06/20/23 06/20/23 History 100 unit/mL (70-30) subcutaneous pen (Novolog Mix 70-30FlexPen U-100) insulin glargine 100 unit/mL (3 26 unit subcut DAILY 07/12/21 06/20/23 06/20/23 History mL) subcutaneous pen (Basaglar KwikPen U-100 Insulin) lisinopril 20 mg tablet 20 mg PO DAILY 07/12/21 06/20/23 Unknown History metoprolol tartrate 25 mg tablet 25 mg PO BID 07/12/21 06/20/23 Unknown History rosuvastatin 10 mg tablet 10 mg PO BEDTIME 07/12/21 06/20/23 Unknown History ursodiol 500 mg tablet 500 mg PO BID 11/22/21 06/20/23 06/20/23 History pen needle, diabetic 31 gauge x #1,200 ea 10/10/22 Unknown History 07/05 (BD Ultra-Fine Short Pen Needle) hydrocortisone acetate 25 mg 25 mg [place] BID PRN Hemorrhoids 12/05/22 06/20/23 Unknown History rectal suppository calcium carbonate 500 mg PO DAILY 06/20/23 06/20/23 Unknown History cholecalciferol (vitamin D3) 25 25 mcg PO DAILY 06/20/23 06/20/23 Unknown History mcg (1,000 unit) tablet cyanocobalamin (vitamin B-12) 1,000 mcg PO DAILY 06/20/23 06/20/23 Unknown History 1,000 mcg tablet escitalopram oxalate 5 mg tablet 5 mg PO DAILY 06/20/23 06/20/23 06/20/23 History omeprazole 20 mg capsule,delayed 20 mg PO DAILY@0630 06/20/23 06/20/23 Unknown History release vitamin E 400 unit tablet 400 unit PO DAILY 06/20/23 06/20/23 Unknown History Physical Exam Vital Signs: Vital Signs: Last Vital Signs Temp 97.7 F 06/21/23 08:00 Pulse 66 06/21/23 08:36 Resp 18 06/21/23 08:00 BP 152/69 H 06/21/23 08:36 Pulse Ox 96 06/21/23 08:36 O2 Del Method Room Air 06/21/23 08:00 BMI result Body Mass Index 33.8 Neuro: Other: Normal non focal neuro exam Results Labs 06/20/23 18:40 06/20/23 18:40 Labs: Short CBC 06/20/23 Range/Units 18:40 WBC 7.2 (4.8-10.8) X10*3/uL Hgb 12.1 (12.0-16.0) g/dl Hct 37.9 (37.0-47.0) % Plt Count 150 L (160-400) X10*3/uL BMP 06/20/23 18:40 Sodium 139 Potassium 4.2 Chloride 103 Carbon Dioxide 27 BUN 19 H Creatinine 1.17 Calcium 9.2 Cardiac Enzymes 06/20/23 Range/Units 18:40 Total Creatine Kinase 60 (26-140) U/L Assessment and Plan (1) Expressive aphasia: Status: Acute Probably related to complex migraine. She has hx of similar events on the opposite remy eof her vision with no speech involvement. Vascular workup negative. No acute infarct on MRI. Recom. ASA 81mg. Migraines are infrequent and do not require daily prophylactic meds. Use Sumatriptan 50mg prn Plan 87-year-old female with history of hypertension, insulin-dependent type 2 diabetes, hyperlipidemia, post herpetic neuralgia, primary biliary cholangitis history, migraine with aura to be observed for expressive aphasia r/t TIA vs complex migraine #Expressive aphasia -r/t TIA vs complex migraine. Has hx migraine with aura -CT head negative for acute intracranial abnormality. CTA head/neck negative for large vessel occlusion or hemodynamically significant stenosis. MRI of the brain also negative for any acute intracranial abnormality. 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 Continue 81 mg aspirin daily -lipid profile pending. Atorvastatin 80 mg daily -echocardiogram -neurology consult -passed bedside swallow evaluation. Neuro checks -trial of Fioricet -PT, OT, DEFLASH AND WASH OPERATOR evaluation #insulin-dependent type 2 diabetes-without hyperglycemia -hemoglobin A1c pending -POC glucose, diabetic diet -dose adjusted Lantus, Admelog on sliding scale # hypertension -hold antihypertensive agents to allow for permissive hypertension as needed. Resume as appropriate # HLD -statin # mood disorder -continue home meds DVT prophylaxis-heparin Full code Procedures Date of Service Date of Service: 06/21/23
[2023-06-21 11:18] VITALS: BP 137/64; PULSE 70; RESP 18; TEMP 36.5; O2SAT 97
--- NOTE | 2023-06-21 11:22 | P.DS_ITS ---
DS: Providers Provider Date of Service: 06/21/23 Date of admission: 06/20/23 20:37 Date of discharge: 06/21/23 Primary care physician: Gregory Carrion MD Admitting clinician: Carisa Coreas Attending physician on admission: Pavel Galaviz Consults: 06/20/23 20:03 Consult to Neurology Routine Consulting Provider: [facility] Reason for consultation: tia Attending physician on discharge: Samir Hendrickson Discharging clinician: Carisa Coreas DS: Diagnosis Discharge Diagnosis (1) Expressive aphasia: Status: Acute DS: Summary Hospital Course Hospital Course: HPI on admission by this provider 06/19: Chief Complaint: word finding difficulty, migraine with aura 87-year-old female with history of hypertension, insulin-dependent type 2 diabetes, hyperlipidemia, post herpetic neuralgia, primary biliary cholangitis, history of migraine wiht aura history presented to the ED via EMS after developing sudden onset aphasia at around 16:45 this afternoon. She states at the same time of symptom onset, she was experiencing aura starting in the right eye migrating to the left with associated migraine like headache. States she typically gets migraines that start with aura in the left eye radiating to the right this headache was slightly different. Since then, still complaining of difficulty with word finding. She has not on any blood thinners. Denies any facial droop, focal weakness or paresthesias, confusion, gait disturbance, shortness of breath, lightheadedness, headache, chest pain. On arrival, vital signs stable. Hematology studies unremarkable. Renal function electrolyte levels normal. Troponin detectable but within normal limits at 6. 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 CTA of the head/neck negative for any large vessel occlusion or hemodynamically significant stenosis mother is a 1.5 mm inferior leads projecting infundibulum versus aneurysm arising from the terminal right ICA as well as an enlarged, heterogenous, multinodular thyroid gland with recommended outpatient follow-up. MR of the brain performed in the ED which is negative for any acute intracranial abnormality again showing moderate volume loss and nonspecific white matter disease. ED did discuss case with Neurology who did not recommend treatment with TNK. In the ED orderd for 324mg asa. She will be observed overnight for TIA. Hospital Course: Pt observed overnight for expressive aphasia with concern for TIA vs complex migraine. Symptoms present on admission to the hospital. Passed bedside swallow evaluation. Symptom onset associated with migraine with aura which patient has history of. MRI brain negative for acute intracranial abnormality. Symptoms fully resolved overnight. Evaluated by neurology more suspicious for complex migraine than TIA given clinical presentation and negative imaging. However, recommending continuing aspirin 81mg daily. LDL also found to be elevated at 150, goal <70. Increase rosuvastatin to 20mg daily. Hgb A1c 7.1%, goal <8.0% given age. Pt reported recent changes in insulin dosage and reports confusion on dosing. Fasting glucose this AM 83. Will lower dose of lantus to 15 units daily to prevent hypoglycemia. Can increase lantus to 20 units in one week if fasting glucose >130. Can continue on SSI. Check fasting glucose QIDACHS for ssi. Will send testing supplies. Neurology recommending sumatriptan prn for migraine headaches. Given infrequency of headaches, no indication for prophylaxis at this time. CAR CONSTRUCTION SUPERINTENDENT evaluated patient without further recommendation for follow up given full resolution of symtpoms. Also seen by PT/OT recommending discharge home no services. Pt should follow up with PCP soon. Status at Discharge Functional status at discharge: independent ambulation Overall status at discharge: patient is progressing back to baseline Time Attestation Discharge Coordination Time (in mins): 42 Quality: Safe Use of Opioids Does Pt have an Active Cancer Diagnosis on the Problem List?: No Quality: Stroke Does the patient have a stroke diagnosis?: No Physical Exam Vital Signs: Vital Signs: Last Vital Signs Temp 97.7 F 06/21/23 08:00 Pulse 66 06/21/23 08:36 Resp 18 06/21/23 08:00 BP 152/69 H 06/21/23 08:36 Pulse Ox 96 06/21/23 08:36 O2 Del Method Room Air 06/21/23 08:00 BMI result Body Mass Index 33.8 Constitutional - Awake and Alert, No apparent distress Eyes - PERRLA, EOMI Cardiovascular - S1S2, RRR, No edema Respiratory - Normal lung expansion, Normal respiratory effort, No respiratory distress, CTA bilaterally Extremities - no calf tenderness bilaterally, no swelling Skin - Warm/Dry Neurological - Alert & oriented x3, CN II-XII in tact, / strength BUE and BLE Psychological - Appropriate affect DS: Data Data Completed and Pending Labs on day of discharge: Laboratory Results - last 24 hr 06/20/23 06/20/23 06/20/23 17:24 18:40 21:05 WBC 7.2 RBC 4.23 Hgb 12.1 Hct 37.9 MCV 89.6 MCH 28.6 MCHC 31.9 RDW 13.1 Plt Count 150 L MPV 11.7 Immature Gran % (Auto) 0.4 Neut % (Auto) 62.7 Lymph % (Auto) 28.3 Avery % (Auto) 6.0 Eos % (Auto) 2.2 Baso % (Auto) 0.4 Lymph # (Auto) 2.0 Avery # (Auto) 0.4 Eos # (Auto) 0.2 Baso # (Auto) 0.0 Abs Immat Gran (auto) 0.03 Absolute Neuts (auto) 4.5 Absolute Nucleated RBC 0.000 Nucleated RBC % (auto) 0.0 PT 11.6 Whole Blood PT 12.5 INR 1.0 Whole Blood INR 1.0 APTT 30.3 Sodium 139 Potassium 4.2 Chloride 103 Carbon Dioxide 27 Anion Gap 13 BUN 19 H Creatinine 1.17 Estim Creat Clear Calc 34.2 Estimated GFR 44 POC Glucose 155 H 76 Random Glucose 100 Estimat Average Glucose 157 Hemoglobin A1c % 7.1 H Calcium 9.2 Total Creatine Kinase 60 Troponin I High Sens 6.0 Triglycerides 135 Cholesterol 236 H LDL Cholesterol, Calc 150 H HDL Cholesterol 59 06/21/23 06/21/23 00:21 08:01 WBC RBC Hgb Hct MCV MCH MCHC RDW Plt Count MPV Immature Gran % (Auto) Neut % (Auto) Lymph % (Auto) Avery % (Auto) Eos % (Auto) Baso % (Auto) Lymph # (Auto) Avery # (Auto) Eos # (Auto) Baso # (Auto) Abs Immat Gran (auto) Absolute Neuts (auto) Absolute Nucleated RBC Nucleated RBC % (auto) PT Whole Blood PT INR Whole Blood INR APTT Sodium Potassium Chloride Carbon Dioxide Anion Gap BUN Creatinine Estim Creat Clear Calc Estimated GFR POC Glucose 161 H 83 Random Glucose Estimat Average Glucose Hemoglobin A1c % Calcium Total Creatine Kinase Troponin I High Sens Triglycerides Cholesterol LDL Cholesterol, Calc HDL Cholesterol Discharge Plan Discharge Anticipated Discharge Date/Time: 06/21/23 12:01 Patient Disposition: Home, Self-Care Discharge Diagnosis: Complex migraine, expressive aphasia Referrals: Gregory Carrion MD [Primary Care Provider] - 1 Week Discharge Medications: New sumatriptan succinate 50 mg Tablet 50 mg PO DAILY MRX1 PRN (Reason: Migraine Headache) Qty: 15 0RF aspirin 81 mg Tablet,Delayed Release (Dr/Ec) 81 mg PO DAILY Qty: 90 0RF rosuvastatin 20 mg tablet 20 mg PO DAILY Qty: 90 0RF (DME) FreeStyle Lite Strips Strip Qty: 100 0RF Rx Instructions: Test four times a day or as directed. (DME) blood-glucose meter [FreeStyle Lite Meter] Kit Qty: 1 0RF Rx Instructions: As Directed alcohol swabs Pads, Medicated 1 pad TOPICAL QIDACHS Qty: 100 0RF Rx Instructions: Use four times a day or as directed. (DME) pen needle, diabetic 32 gauge x 1/4 needle Qty: 100 0RF Rx Instructions: Use four times a day or as directed. (DME) lancets [FreeStyle Lancets] 28 gauge misc Qty: 100 0RF Rx Instructions: Test four times a day or as directed. insulin lispro [Humalog KwikPen Insulin] 100 unit/mL insulin pen 1 sliding scale dose subcut USEASDIRECTD MDD 40 units Qty: 15 0RF insulin glargine [Lantus Solostar U-100 Insulin] 100 unit/mL (3 mL) insulin pen 15 unit subcut QAM Qty: 15 0RF Continued Uro-Mag 84.5 mg mag (140 mg) capsule 84.5 mg PO BID Qty: 60 2RF escitalopram oxalate 5 mg tablet 5 mg PO DAILY cyanocobalamin (vitamin B-12) 1,000 mcg Tablet 1,000 mcg PO DAILY calcium carbonate 500 mg calcium (1,250 mg) Tablet 500 mg PO DAILY vitamin E 400 unit Tablet 400 unit PO DAILY omeprazole 20 mg Capsule,Delayed Release(Dr/Ec) 20 mg PO DAILY@0630 cholecalciferol (vitamin D3) 25 mcg (1,000 unit) Tablet 25 mcg PO DAILY ursodiol 500 mg tablet 500 mg PO BID (DME) pen needle, diabetic [BD Ultra-Fine Short Pen Needle] 31 gauge x 5/16 needle See Rx Instructions .ROUTE TID Qty: 1200 Rx Instructions: As directed escitalopram oxalate 10 mg tablet 10 mg PO QPM lisinopril 20 mg tablet 20 mg PO DAILY metoprolol tartrate 25 mg tablet 25 mg PO BID alprazolam 0.25 mg tablet 0.25 mg PO BEDTIME PRN (Reason: insomnia) albuterol sulfate 90 mcg/actuation HFA aerosol inhaler 2 puff inhalation Q4H fluticasone propionate 50 mcg/actuation spray,suspension 1 spray intranasal DAILY PRN (Reason: Congestion) hydrocortisone acetate 25 mg suppository 25 mg [place] BID PRN (Reason: Hemorrhoids) Discontinued Basaglar KwikPen U-100 Insulin 100 unit/mL (3 mL) insulin pen 26 unit subcut DAILY insulin asp prt-insulin aspart [Novolog Mix 70-30FlexPen U-100] 100 unit/mL (70-30) insulin pen 5 unit subcut TIDAC rosuvastatin 10 mg tablet 10 mg PO BEDTIME Discharge Orders: Discharge Order (Routine); Ordered 06/21/23 Ordered By: Carisa Coreas Diet: Diabetic diet Activity on Discharge: As tolerated Stand Alone Forms: Patient Portal Discharge page Print Language: Pashto Care Plan Goals: Manage migraines, monitor for further neurological deficits Manage Type 2 diabetes and prevent hypoglycemia Improve cholesterol control Health Concerns: Expressive aphasia Complex migraine Hyperlipidemia Type 2 diabetes Plan of Treatment: Expressive aphasia - word finding difficulty, resolved on discharge -Imaging including head CT, CTA head/neck, and MRI brain negative for acute abnormality -As discussed after evaluation by myself and neurology, symptoms more concerning for complex migraine rather than TIA given symptom onset with associated migraine with aura and negative imaging while symptoms still present -Neuro recommends: continue aspirin 81mg daily. Can use sumatriptan 50mg daily (may repeat once in 24 hours for ongoing symptoms) as needed for migraine headache. Uncontrolled elevated cholesterol -LDL 150, goal <70. Increase rosuvastatin to 20mg daily Type 2 diabetes -glucose levels low normal during admission -Recommend decreasing daily insulin (lantus or equivalent) to 15 units daily. Increase to 20 units daily after 1 week if FASTING glucose remains >130. -Check glucose 4 times daily- fasting, with meals and at bedtime. Use fast acting insulin (novolog or equivalent) using sliding scale per protocol (listed on prescription) -Hemoglobin A1c 7.1%. Follow up with PCP Assessment: See above. See discharge summary
[2023-06-21] MEDS: lisinopriL 20 MG TABLET PO (12:20)
[2023-06-21] MEDS: Metoprolol Tartrate 25 MG TABLET PO (12:21)
[2023-06-21] MEDS: Insulin Lispro 100 UNIT/ML 3 ML VIAL SUBCUT (12:21)
--- NOTE | 2023-06-21 12:41 | MHC.CM.PN ---
Patient has been medically cleared for dc to home today, self care.
== END 2023-06-21 13:59 | disposition home or self-care (01) ==
LOC: HO.ED 20:13 → HO.EDOVER 20:50 → HO.IMC 23:05
PROVIDERS: Student in an Organized Health Care Education/Training Program; Admitting Provider Physician Assistant; Emergency Provider Student in an Organized Health Care Education/Training Program; PCP Internal Medicine; Visit Provider Physician Assistant
DX: R47.01 Aphasia (principal); G43.109 Migraine with aura, not intractable, without status migrainosus; E11.649 Type 2 diabetes mellitus with hypoglycemia without coma; I10 Essential (primary) hypertension; E78.5 Hyperlipidemia, unspecified; K74.3 Primary biliary cirrhosis; F39 Unspecified mood [affective] disorder; Z79.4 Long term (current) use of insulin; Z79.899 Other long term (current) drug therapy
CPT/HCPCS: 36415; 70450; 70496; 70498; 70551; 80048; 80061; 82550; 82947; 83036; 83735; 84484; 85025; 85610; 85730; 93005; 93306; 96372; 96374; 97162; 97165; 99222; 99285; J1644; J2060; Q9957

== ENCOUNTER → 2023-06-20 17:25 | Outpatient (BNV) | payer MEDICARE, MEDICAID, SELFPAY | PROVIDERS: Admitting Provider Physician Assistant; Emergency Provider Student in an Organized Health Care Education/Training Program; PCP Internal Medicine; Visit Provider Internal Medicine | DX: I49.1 Atrial premature depolarization (principal) | CPT/HCPCS: 93010 ==

== ENCOUNTER 2023-06-20 20:37 | Outpatient (BNV) | payer MEDICARE, MEDICAID, SELFPAY | END 2023-06-21 07:00 | PROVIDERS: Admitting Provider Physician Assistant; Emergency Provider Student in an Organized Health Care Education/Training Program; PCP Internal Medicine; Visit Provider Internal Medicine | DX: I35.8 Other nonrheumatic aortic valve disorders (principal); I34.81 Nonrheumatic mitral (valve) annulus calcification; I36.1 Nonrheumatic tricuspid (valve) insufficiency | CPT/HCPCS: 93306 ==

== ENCOUNTER → 2023-06-20 20:37 | Outpatient (BNV) | payer MEDICARE, MEDICAID, SELFPAY | PROVIDERS: Admitting Provider Physician Assistant; Emergency Provider Student in an Organized Health Care Education/Training Program; PCP Internal Medicine; Visit Provider Physician Assistant | DX: R47.01 Aphasia (principal) | CPT/HCPCS: 99223; 99239 ==

== ENCOUNTER → 2023-06-20 20:37 | Outpatient (BNV) | payer MEDICARE, MEDICAID, SELFPAY | PROVIDERS: Admitting Provider Physician Assistant; Emergency Provider Student in an Organized Health Care Education/Training Program; PCP Internal Medicine; Visit Provider Psychiatry & Neurology Neurology | DX: R47.01 Aphasia (principal) | CPT/HCPCS: 99222 ==

== ENCOUNTER 2023-06-21 14:02 | Outpatient (REF) | payer MEDICARE, OTHER, SELFPAY ==
[2023-06-21 17:59] LABS: Magnesium 1.4 mg/dL (1.6-2.6)
== END 2023-06-21 14:03 | disposition home or self-care (01) ==
LOC: HO.LAB 14:02
PROVIDERS: Visit Provider Internal Medicine Gastroenterology
DX: Z13.89 Encounter for screening for other disorder (principal)
CPT/HCPCS: 36415; 83735

== ENCOUNTER 2023-06-27 15:32 | Emergency (ER) | payer MEDICARE, MEDICAID, SELFPAY ==
[2023-06-27 15:53] VITALS: BP 148/69; BP 201/109; PULSE 77; PULSE 88; RESP 18; TEMP 36.6; O2SAT 96; O2SAT 97; BMI 34.4
[2023-06-27 15:59] LABS: Glucose, Whole Blood 243 mg/dL (60-115)
--- NOTE | 2023-06-27 16:19 | ED.GENADULT ---
HPI - General Adult General Chief complaint: General Medical Stated complaint: took 25 units of humalog intsead of lantus Time Seen by Provider: 06/27/23 16:10 Source: patient and EMS Mode of arrival: EMS Limitations: no limitations History of Present Illness HPI narrative: Patient comes to the emergency room complaining of an accidental insulin overdose. Patient states that she was supposed to take 25 units of Lantus today, but instead she took 25 units of Humalog. Patient is asymptomatic. Patient states that after she injected herself with Humalog, patient started eating and drinking so the. Patient states that she feels well. On arrival, point of care glucose was 243. Related Data Home Medications ?Medication ?Instructions ?Recorded ?Confirmed albuterol sulfate 90 mcg/actuation 2 puff inhalation Q4H 07/12/21 06/20/23 aerosol inhaler alprazolam 0.25 mg tablet 0.25 mg PO BEDTIME PRN insomnia 07/12/21 06/20/23 escitalopram oxalate 10 mg tablet 10 mg PO QPM 07/12/21 06/20/23 fluticasone propionate 50 1 spray intranasal DAILY PRN 07/12/21 06/20/23 mcg/actuation nasal Congestion spray,suspension lisinopril 20 mg tablet 20 mg PO DAILY 07/12/21 06/20/23 metoprolol tartrate 25 mg tablet 25 mg PO BID 07/12/21 06/20/23 ursodiol 500 mg tablet 500 mg PO BID 11/22/21 06/20/23 pen needle, diabetic 31 gauge x #1,200 ea 10/10/2207/05 (BD Ultra-Fine Short Pen Needle) hydrocortisone acetate 25 mg 25 mg IA BID PRN Hemorrhoids 12/05/22 06/20/23 rectal suppository calcium carbonate 500 mg PO DAILY 06/20/23 06/20/23 cholecalciferol (vitamin D3) 25 25 mcg PO DAILY 06/20/23 06/20/23 mcg (1,000 unit) tablet cyanocobalamin (vitamin B-12) 1,000 mcg PO DAILY 06/20/23 06/20/23 1,000 mcg tablet escitalopram oxalate 5 mg tablet 5 mg PO DAILY 06/20/23 06/20/23 omeprazole 20 mg capsule,delayed 20 mg PO DAILY@0630 06/20/23 06/20/23 release vitamin E 400 unit tablet 400 unit PO DAILY 06/20/23 06/20/23 Previous Rx's ?Medication ?Instructions ?Recorded magnesium oxide (Uro-Mag) 84.5 mg PO BID #60 caps 06/02/23 alcohol swabs 1 pad topical QIDACHS #100 ea 06/21/23 aspirin 81 mg tablet,delayed 81 mg PO DAILY #90 tabs 06/21/23 release blood sugar diagnostic (FreeStyle #100 ea 06/21/23 Lite Strips) blood-glucose meter (FreeStyle #1 ea 06/21/23 Lite Meter kit) insulin glargine 100 unit/mL (3 15 unit (0.15 mL) subcut QAM #15 mL 06/21/23 mL) subcutaneous pen (Lantus Solostar U-100 Insulin) insulin lispro 100 unit/mL 1 sliding scale dose subcut 06/21/23 subcutaneous pen (Humalog KwikPen USEASDIRECTD #15 mL (U-100) Insulin) lancets 28 gauge (FreeStyle #100 ea 06/21/23 Lancets) pen needle, diabetic 32 gauge x #100 ea 06/21/23/ rosuvastatin 20 mg tablet 20 mg PO DAILY #90 tabs 06/21/23 sumatriptan succinate 50 mg tablet 50 mg PO DAILY MRX1 PRN Migraine 06/21/23 Headache #15 tabs glucagon 1 mg solution for 1 mg subcut Q20M PRN hypoglycemia 06/27/23 injection (Glucagon Emergency Kit) #1 ea Allergies Allergy/AdvReac Type Severity Reaction Status Date / Time No Known Allergies Allergy Verified 06/27/23 15:55 [No Known Allergies*] Review of Systems Review of Systems: Constitutional : No Weight loss, No Fever, No Chills, No Night Sweats, No Fatigue, No Malaise ENT/Mouth : No Hearing loss, No Ear Pain, No Nasal Congestion, No Sinus Pain, No Hoarseness, No sore throat, No Rhinorrhea, No Swallowing Difficulty Eyes: No Eye Pain, No Swelling, No Redness, No Foreign Body, No Discharge, No Vision Changes Cardiovascular : No Chest Pain, No SOB, No Dyspnea on Exertion, No Orthopnea, No Edema, No Palpitations Respiratory : No Cough, No Sputum, No Wheezing, No Smoke Exposure, No Dyspnea Gastrointestinal : No Nausea, No Vomiting, No Diarrhea, No Constipation, No abdominal Pain, No Hematochezia, No Melena Genitourinary : no irregular bleeding, No Dysuria, No Urinary Frequency, No Hematuria, No Urinary Incontinence, No Urgency, No Flank Pain, No Urinary Flow Changes, No Hesitancy Musculoskeletal : No joint pain, No Myalgias, No Joint Swelling Skin : No Skin Lesions, No rash Neuro : No Weakness, No Numbness, No Paresthesias, No Loss of Consciousness, No Dizziness, No Headache Psych : No Anxiety/Panic, No Depression, No SI/HI/AH/VH, No Social Issues, Heme/Lymph: No Bruising, No Bleeding,No Lymphadenopathy Endocrine : No Polyuria, No Polydipsia, No Temperature Intolerance [facility] Past Medical History Medical History Hyperlipidemia Hypertension Post herpetic neuralgia Herpes zoster Type 2 diabetes mellitus Surgical History Hx of cholecystectomy Hx of appendectomy Hx of knee surgery History of esophagogastroduodenoscopy (EGD) Hx of colonoscopy Social History Social History Household Members: None Housing: Other Housing Other:: senior housing Do you presently have visiting nurse or other home services: No Alcohol intake: never Patient Tobacco Use Status: Former Tobacco user Tobacco use type: Cigarette Cigarette Packs Per Day: 1 Cigarettes Per Day: 20.0 Years Smoked: 36 Smoked in Last 30 Days: No Use of substances other than those prescribed or required for medical reasons: No Advance Directives: No Advance Directives Information Provided: No service: No Physical Exam ED Vital Signs: Vital Signs - 24 hr 06/27/23 15:53 06/27/23 19:30 06/27/23 20:48 Temperature 97.9 F 98.1 F Pulse Rate 77 72 77 Respiratory Rate 18 16 18 Blood Pressure 148/69 H 155/76 H 181/88 H Pulse Oximetry 97 97 97 Oxygen Delivery Method Room Air Room Air Room Air BMI result Body Mass Index 34.4 Const Other: Appearance: Alert. Oriented X3. No acute distress. Eyes: Pupils equal, round and reactive to light. ENT: Pharynx normal. Neck: Normal inspection. Neck supple. No lymph nodes noted. No crepitus CVS: Normal heart rate and rhythm. Pulses normal. Normal S1 and S2 Respiratory: No respiratory distress. Breath sounds normal. No Wheezing. No rales Abdomen: Soft and nontender. No rigidity. No distention. Skin: Skin warm and dry. Normal skin color. Normal skin turgor. Extremities: No lower extremity edema. No Lacerations. No Rash Neuro: Oriented X 3. No motor deficit. No sensory deficit. Moving all extremities. No slurred speech. CN 2 through 12 grossly intact Psych: calm, cooperative, normal affect Course Course Course Narrative: -initial glucose point of care was 243 -I discussed with the patient that we will recheck her glucose cerebellar times, once the glucose level is steady, she may be discharged home. Medical Decision Making Medical Decision Making [facility] Narrative: -patient's initial glucose was 243. However, despite eating and drinking, patient's glucose kept dropping. Lowest glucose was 93. Then patient's glucose started to stabilize and go back. Last 2 glucose checks were 136 and 167. Differential Diagnosis Differential Diagnoses: The differential diagnosis associated with the presentation includes (Accidental insulin overdose) Admission/Observation Consideration of admission/observation: Escalation of care including admission/observation considered (Given patient's glucose levels, admission/observation was considered) Lab Data [facility] Lab Attestation statement: I reviewed the patient's lab results. Labs: Lab Results 06/27/23 06/27/23 06/27/23 Range/Units 15:55 17:09 18:12 POC Glucose 243 H 128 H 106 (60-115) mg/dL 06/27/23 06/27/23 06/27/23 Range/Units 19:40 20:04 20:57 POC Glucose 103 93 136 H (60-115) mg/dL 06/27/23 Range/Units 21:38 POC Glucose 167 H (60-115) mg/dL Critical Care Time Critical Care Time Critical Care Time: Yes Total Critical Care Time: 60 Attestation: I have personally provided critical care time. Time includes review of lab data, radiology results, discussion with consultants, and monitoring for potential decompensation. Intervention performed as documented. Discharge Plan Discharge Clinical Impression: Accidental overdose of insulin Patient Disposition: Home, Self-Care Instructions: Hypoglycemia in a Person with Diabetes (ED) Additional Instructions: Please follow-up with your primary care physician tomorrow. If you have any worsening or new symptoms, please return to the emergency room or call 911 Prescriptions: New Glucagon Emergency Kit (human) 1 mg recon soln 1 mg subcut Q20M PRN (Reason: hypoglycemia) Qty: 1 0RF Rx Instructions: until target blood sugar attained No Action Uro-Mag 84.5 mg mag (140 mg) capsule 84.5 mg PO BID Qty: 60 2RF escitalopram oxalate 5 mg tablet 5 mg PO DAILY cyanocobalamin (vitamin B-12) 1,000 mcg Tablet 1,000 mcg PO DAILY calcium carbonate 500 mg calcium (1,250 mg) Tablet 500 mg PO DAILY vitamin E 400 unit Tablet 400 unit PO DAILY omeprazole 20 mg Capsule,Delayed Release(Dr/Ec) 20 mg PO DAILY@0630 cholecalciferol (vitamin D3) 25 mcg (1,000 unit) Tablet 25 mcg PO DAILY sumatriptan succinate 50 mg Tablet 50 mg PO DAILY MRX1 PRN (Reason: Migraine Headache) Qty: 15 0RF aspirin 81 mg Tablet,Delayed Release (Dr/Ec) 81 mg PO DAILY Qty: 90 0RF rosuvastatin 20 mg tablet 20 mg PO DAILY Qty: 90 0RF (DME) FreeStyle Lite Strips Strip Qty: 100 0RF Rx Instructions: Test four times a day or as directed. (DME) blood-glucose meter [FreeStyle Lite Meter] Kit Qty: 1 0RF Rx Instructions: As Directed alcohol swabs Pads, Medicated 1 pad TOPICAL QIDACHS Qty: 100 0RF Rx Instructions: Use four times a day or as directed. (DME) pen needle, diabetic 32 gauge x 1/4 needle Qty: 100 0RF Rx Instructions: Use four times a day or as directed. (DME) lancets [FreeStyle Lancets] 28 gauge misc Qty: 100 0RF Rx Instructions: Test four times a day or as directed. insulin lispro [Humalog KwikPen Insulin] 100 unit/mL insulin pen 1 sliding scale dose subcut USEASDIRECTD MDD 40 units Qty: 15 0RF insulin glargine [Lantus Solostar U-100 Insulin] 100 unit/mL (3 mL) insulin pen 15 unit subcut QAM Qty: 15 0RF ursodiol 500 mg tablet 500 mg PO BID (DME) pen needle, diabetic [BD Ultra-Fine Short Pen Needle] 31 gauge x 5/16 needle See Rx Instructions .ROUTE TID Qty: 1200 Rx Instructions: As directed escitalopram oxalate 10 mg tablet 10 mg PO QPM lisinopril 20 mg tablet 20 mg PO DAILY metoprolol tartrate 25 mg tablet 25 mg PO BID alprazolam 0.25 mg tablet 0.25 mg PO BEDTIME PRN (Reason: insomnia) albuterol sulfate 90 mcg/actuation HFA aerosol inhaler 2 puff inhalation Q4H fluticasone propionate 50 mcg/actuation spray,suspension 1 spray intranasal DAILY PRN (Reason: Congestion) hydrocortisone acetate 25 mg suppository 25 mg IA BID PRN (Reason: Hemorrhoids) Print Language: [place] Irish
--- NOTE | 2023-06-27 17:12 | MHC.EDTECH ---
Patient does not want to change into a juanjo. RN aware
[2023-06-27 17:13] LABS: Glucose, Whole Blood 128 mg/dL (60-115)
--- NOTE | 2023-06-27 18:10 | PC.NURSE ---
patient provided with sandwich and diet luna finch. ambulated to the bathroom independently with steady gait. call waller within reach
[2023-06-27 18:16] LABS: Glucose, Whole Blood 106 mg/dL (60-115)
[2023-06-27 19:30] VITALS: BP 155/76; PULSE 72; RESP 16; TEMP 36.7; O2SAT 97
[2023-06-27 19:43] LABS: Glucose, Whole Blood 103 mg/dL (60-115)
[2023-06-27 20:08] LABS: Glucose, Whole Blood 93 mg/dL (60-115)
--- NOTE | 2023-06-27 20:25 | MHC.EDTECH ---
Patient changed over
[2023-06-27 20:48] VITALS: BP 181/88; PULSE 77; RESP 18; O2SAT 97
--- NOTE | 2023-06-27 20:55 | PC.NURSE ---
Assumed care of pt. Pt lying on stretcher, endorsing generalized weakness. Plan to recheck POC and treat as appropriate.
[2023-06-27 21:00] LABS: Glucose, Whole Blood 136 mg/dL (60-115)
[2023-06-27 22:03] LABS: Glucose, Whole Blood 167 mg/dL (60-115)
[2023-06-27 22:26] VITALS: BP 178/80; PULSE 80; RESP 18; TEMP 36.8; O2SAT 98
== END 2023-06-27 22:27 | disposition home or self-care (01) ==
PROVIDERS: Emergency Provider Emergency Medicine; PCP Internal Medicine
DX: T38.3X1A Poisoning by insulin and oral hypoglycemic [antidiabetic] drugs, accidental (unintentional), initial encounter (principal); Y92.9 Unspecified place or not applicable; E11.9 Type 2 diabetes mellitus without complications; I10 Essential (primary) hypertension
CPT/HCPCS: 82947; 99283; 99284

== ENCOUNTER 2023-09-18 13:33 | Outpatient (REF) | payer MEDICARE, MEDICAID, SELFPAY ==
[2023-09-18 19:26] LABS: Magnesium 1.4 mg/dL (1.6-2.6)
== END 2023-09-18 13:34 | disposition home or self-care (01) ==
LOC: HO.HMGCLDS 13:33
PROVIDERS: PCP Internal Medicine; Visit Provider Internal Medicine Gastroenterology
DX: E46 Unspecified protein-calorie malnutrition (principal)
CPT/HCPCS: 36415; 83735

== ENCOUNTER 2023-10-09 14:32 | Outpatient (REF) | payer MEDICARE, MEDICAID, SELFPAY ==
[2023-10-09 15:53] LABS: MANUAL DIFF FLAG NO
[2023-10-09 16:13] LABS: INTERNATIONAL NORM RATIO 0.9 (0.9-1.1); Prothrombin Time 11.5 SEC (11.1-13.3)
[2023-10-09 16:22] LABS: Basophils Percent Auto 0.5 % (0-2); Eosinophils Absolute Auto 0.2 X10*3/uL (0.0-0.4); Eosinophils Percent Auto 2.4 % (0-4); Hematocrit 40.6 % (37.0-47.0); Hemoglobin 12.6 g/dl (12.0-16.0); Imm Gran Abs Auto 0.03 X10*3/uL (0.00-0.03); Imm Gran Pct Auto 0.4 % (0.0-0.4); Lymphocytes Absolute Auto 2.1 X10*3/uL (1.2-4.9); Lymphocytes Percent Auto 26.1 % (20-40); Mean Corpuscular Hemoglobin 28.1 pg (27.0-33.0); Mean Corpuscular Volume 90.4 fL (80.0-98.0); Mean Platelet Volume 12.1 fL (9.4-12.3); Monocytes Absolute Auto 0.5 X10*3/uL (0.1-1.2); Monocytes Percent Auto 6.2 % (2-11); Neutrophils Absolute Auto 5.2 x10*3/uL (2.0-8.3); Neutrophils Percent Auto 64.4 % (45-73); Platelet Count 149 X10*3/uL (160-400); Red Blood Count 4.49 X10*6/uL (4.20-5.50); Red Cell Distribution Width 13.2 % (11.0-16.0)
[2023-10-09 16:43] LABS: Alanine Aminotransferase 7 U/L (0-31); Albumin Level 4.1 g/dL (3.5-5.0); Alkaline Phosphatase 69 U/L (39-117); Anion Gap 13 (12-20); Aspartate Amino Transferase 15 U/L (5-31); Bilirubin Total 0.5 mg/dL (0.0-1.0); Blood Urea Nitrogen 28 mg/dL (9-16); Carbon Dioxide 25 mmol/L (22-29); Chloride 106 mmol/L (96-108); Estimated Glomerular Filt Rate 37; Glucose Random 102 mg/dL (60-115); Magnesium 1.6 mg/dL (1.6-2.6); Potassium 4.4 mmol/L (3.3-5.1); Sodium 140 mmol/L (135-145); Total Protein 7.4 g/dL (6.5-8.0)
[2023-10-09 16:58] LABS: Ferritin 188 ng/mL (10-250); Vitamin D 25-OH Total 46.4 ng/mL (>30)
[2023-10-09 17:11] LABS: Folate 6.2 ng/mL (> or = 4.0); Vitamin B12 873 pg/mL (200-900)
[2023-10-10 14:29] LABS: Calcium, Ionized 5.1 mg/dL (4.7-5.5)
[2023-10-12 01:23] LABS: Zinc 79 mcg/dL (60-130)
[2023-10-13 18:53] LABS: Alpha-Tocopherol 25.6 mg/L (5.7-19.9); Beta-Gamma Tocopherol 1.3 mg/L (<=4.3); Vitamin A 54 mcg/dL (38-98)
[2023-10-14 16:04] LABS: Vitamin B5 (Pantothenic Acid) 53 ng/mL (<275)
[2023-10-14 16:13] LABS: Nicotinamide <20 ng/mL (see note); Vit B3 - Nicotinic Acid <20 ng/mL (see note)
[2023-10-14 16:33] LABS: Vitamin B6 5.9 ng/mL (2.1-21.7)
[2023-10-14 17:23] LABS: Vitamin K1 504 pg/mL (130-1500)
[2023-10-16 06:18] LABS: Vitamin B1 13 nmol/L (8-30)
== END 2023-10-09 14:33 | disposition home or self-care (01) ==
LOC: HO.LAB 14:32
PROVIDERS: PCP Internal Medicine; Visit Provider Internal Medicine Gastroenterology
DX: K74.3 Primary biliary cirrhosis (principal); R10.2 Pelvic and perineal pain; K75.81 Nonalcoholic steatohepatitis (NASH); E83.52 Hypercalcemia
CPT/HCPCS: 36415; 80053; 82180; 82306; 82330; 82607; 82728; 82746; 83735; 84207; 84425; 84446; 84590; 84591; 84597; 84630; 85025; 85610; 99212

== ENCOUNTER 2023-10-09 14:32 | Outpatient (AMB) | payer MEDICARE, MEDICAID, SELFPAY ==
[2023-10-09 14:40] VITALS: BP 109/56; PULSE 67; BMI 33.3
--- NOTE | 2023-10-09 14:40 | A.OFFVIS_ITS ---
Vital Signs 10/09/23 14:40 Height 5 ft 1 in Weight 176 lb 5.917 oz BMI 33.3 BP 109/56 L Blood Pressure Location Lt brachial Position Sitting Pulse 67 Intake Visit Reasons: Follow Up - Labs Intake Note: Sola returns to in office follow up of herpetic neuralgia. CC: Patient reports a period of constipation for about 2 weeks but she is normal now. She c/o lower abdominal cramping and pressure. 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 she was commenced on ursodiol and been on since she had EGD 03/2013-- no signs of portal HTN noted. she is recovering from an attack of vertigo, w/u neg for CVA she has a rash few months ago, ?shingles --now post herpetic pain--burning on left side she denies abdominal pain no nausea appetite is good weight si stable normal stools she has hemorrhoids that bleed some times denies constipation she had colonoscopy--cant recall --done at [facility] [place] she use to see Dr Qureshi US RUQ: 07/2021---renal cysts, small liver consistent with cirrhosis, no masses US RUQ: 05/18/23- fatty liver INTERIM: she feels her hemorrhoids are acting up, causing tenesmus, no bleeding in stool, had for years she thinks no jaundice appetite is good she just finished amoxil for UTI--helping--waiting to see urologist takes vitamins daily and ursodiol she still has numbness from her herpetic neuralgia EXAM: GENERAL: The patient is well developed and nontoxic, VITAL SIGNS:see workflow HEENT: Nonicteric sclerae, PERRLA, EOMI. Oropharynx clear. Moist mucous membranes. Conjunctivae appear well perfused. No thyroid mass. CHEST: Chest wall is nontender. HEART: Regular rate and rhythm without murmurs. LUNGS: Clear to auscultation bilaterally. ABDOMEN: Soft, positive bowel sounds,tender upper abdomen, no organomegaly.no flank tenderness SKIN: ernie warts NEUROLOGIC: Cranial nerves II-XII intact without motor/sensory deficit. MS: normal ROM A/P: 1/ diagnosis of PBC, been on urosdiol for years, LFT have been normal--most recent 02/11 2/ hypomagnesemia likely 2/2 to PPI 3/ post shingles radicular pain--better PLAN: 1/ pelvic us 2/ labs , vitamin levels 3/ PCP is doing dexa, she has osteopenia, being monitored 4/ hold on colonoscopy right now [facility] Medical History Hyperlipidemia Hypertension Post herpetic neuralgia Herpes zoster Type 2 diabetes mellitus Surgical History Hx of cholecystectomy Hx of appendectomy Hx of knee surgery History of esophagogastroduodenoscopy (EGD) Hx of colonoscopy Social History Household Members: None Housing: Other Housing Other:: senior housing Do you presently have visiting nurse or other home services: No Alcohol intake: never Patient Tobacco Use Status: Former Tobacco user Tobacco use type: Cigarette Cigarette Packs Per Day: 1 Cigarettes Per Day: 20.0 Years Smoked: 36 service: No Physical Exam Vital Signs: Last Vital Signs Pulse 67 10/09/23 14:40 BP 109/56 L 10/09/23 14:40 BMI result Body Mass Index 33.3 Assessment & Plan Assessment & Plan (1) Suprapubic pain: Code(s): R10.2 - Pelvic and perineal pain Category: Medical Plan: see above (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 Category: Medical Plan: see above Orders: Orders US pelvic and transvaginal Today R10.2 - Pelvic and perineal pain Vitamin A Today K74.3 - Primary biliary cirrhosis Vitamin B5 (Pantothenic Acid) Today K74.3 - Primary biliary cirrhosis Vitamin B3 (Niacin) Today K74.3 - Primary biliary cirrhosis Vitamin E Today K74.3 - Primary biliary cirrhosis Vitamin D 25-OH Total Today K74.3 - Primary biliary cirrhosis Vitamin K1 Today K74.3 - Primary biliary cirrhosis Magnesium Today K74.3 - Primary biliary cirrhosis, R10.2 - Pelvic and perineal pain Complete Blood Count Auto Diff Today K74.3 - Primary biliary cirrhosis Comprehensive Met. Panel Today K74.3 - Primary biliary cirrhosis, K75.81 - Nonalcoholic steatohepatitis (TOLBERT) Vitamin B1 Today K74.3 - Primary biliary cirrhosis Vitamin B12 and Folate Today K74.3 - Primary biliary cirrhosis Vitamin B6 Today K74.3 - Primary biliary cirrhosis Vitamin C Today K74.3 - Primary biliary cirrhosis Zinc Today K74.3 - Primary biliary cirrhosis Ferritin Today K74.3 - Primary biliary cirrhosis Prothrombin Time INR Today K74.3 - Primary biliary cirrhosis Calcium, Ionized Today E83.52 - Hypercalcemia, K74.3 - Primary biliary cirrhosis, R10.2 - Pelvic and perineal pain Medications: New hydrocortisone 2.5% (Anusol-HC) 1 appl MA BID-QID PRN 30 grams 0RF hemorrhoids Changed From magnesium oxide (Uro-Mag) 84.5 mg PO TID 20 days 60 caps 2RF To magnesium oxide (Uro-Mag) 84.5 mg PO TID 90 days 270 caps 2RF Coding Level of Care Code Est Pt Level 4 (42797) Diagnoses Suprapubic pain R10.2 Primary biliary cholangitis K74.3
== END 2023-10-09 15:17 | disposition home or self-care (01) ==
PROVIDERS: PCP Internal Medicine; Visit Provider Internal Medicine Gastroenterology
DX: R10.2 Pelvic and perineal pain (principal); K74.3 Primary biliary cirrhosis
CPT/HCPCS: 99214

== ENCOUNTER 2023-11-06 13:57 | Outpatient (REF) | payer MEDICARE, MEDICAID, SELFPAY ==
--- NOTE | ~2023-11-06 | US_ITS ---
EXAMINATION: US PELVIS. TRANSABDOMINAL AND TRANSVAGINAL CLINICAL INFORMATION: Suprapubic pain and cramping. COMPARISON: None available. TECHNIQUE: Ultrasound of the pelvis is performed using both transabdominal and transvaginal transducers along with Doppler. Transvaginal imaging is performed due to inadequate visualization transabdominally. FINDINGS: UTERUS: The uterus is anteverted and measures 6.2 x 2.2 x 3.9 cm. The double wall endometrial thickness is 2 mm. The uterus is smooth in contour and has normal myometrial echogenicity. No visible fibroid. Nabothian cysts are present. ADNEXA: Neither ovary could be seen. There was no free fluid in the pelvis. MPRESSION: Normal-appearing uterus. Neither ovary could be seen. Electronically signed by: Eamon Kenyon MD 11/08/2023 05:04 PM EDT
== END 2023-11-06 13:58 | disposition home or self-care (01) ==
LOC: HO.HMGCX 13:57
PROVIDERS: PCP Internal Medicine; Visit Provider Internal Medicine Gastroenterology
DX: R10.2 Pelvic and perineal pain (principal)
CPT/HCPCS: 76830; 76856

== ENCOUNTER → 2024-02-05 13:56 | Outpatient (BNVA) | payer MEDICARE, MEDICAID, SELFPAY | PROVIDERS: PCP Internal Medicine; Visit Provider Internal Medicine Gastroenterology | DX: K74.3 Primary biliary cirrhosis (principal); K75.81 Nonalcoholic steatohepatitis (NASH); Z90.49 Acquired absence of other specified parts of digestive tract | CPT/HCPCS: 99212 ==

== ENCOUNTER 2024-05-23 14:47 | Outpatient (REF) | payer MEDICARE, MEDICAID, SELFPAY ==
--- OUTSIDE RECORDS SUMMARY | 2024-05-23 16:16 | XMS_ITS | Clinical Summary ---
Author Organization [facility] [address] [place] [address] [address] [place] [address] Phone Care Team Providers Care Coil Maker Name Role Phone Gregory Carrion MD Primary Care Provider [phone] Allergies No known active allergies Medications BD Ultra-Fine Short Pen Needle 31 gauge x 5/16 needle USE TO ADMINISTER INSULIN FOUR TIMES A DAY 400 each 1 4 Active Additional Information Patient taking differently: Dx e11.29, Reported on 01/10/2024 ALPRAZolam (XANAX) 0.25 mg tablet Take 1 tablet by mouth at bedtime as needed for Sleep or Anxiety for up to 30 days. 1 Active cholecalcifero l (VITAMIN D-3) 50 mcg (2,000 unit) capsule Take 1 Cap by mouth daily. 8 Active escitalopram (LEXAPRO) 10 mg tablet TAKE 1 TABLET BY MOUTH EVERY DAY 3 Active fluticasone propionate (FLONASE) 50 mcg/actuation nasal spray 2 Sprays by Nasal route daily. 1 Active ursodioL (ACTIGALL) 500 mg tablet Take 1 Tablet by mouth 2 Times Daily. 4 Active albuterol HFA (Ventolin HFA) 90 mcg/actuation inhaler Inhale 2 Puffs into the lungs every 6 hours as needed for Cough or Wheezing. 3 Active OneTouch Ultra Test test strip USE TO TEST BLOOD SUGAR THREE TIMES DAILY 300 strip 1 5 Active rosuvastatin (CRESTOR) 10 mg tablet TAKE 1 TABLET BY MOUTH EVERY DAY 90 tablet 1 5 Active metoprolol tartrate (LOPRESSOR) 25 mg tablet Take 1 tablet (25 mg total) by mouth 2 (two) times a day. 180 tablet 1 5 Active estradioL (ESTRACE) 0.01 % (0.1 mg/gram) vaginal creamIndicatio ns:atrophic vaginitis associated with menopause Apply a pea-sized amount of cream with the applicator into the vaginal canal every night for 2 weeks, then twice a week thereafter. 42.5 g 5 5 Active methenamine hippurate (HIPREX) 1 gram tabletIndicati ons:prevention of bacterial urinary tract infection Take 1 tablet (1 g total) by mouth 2 (two) times a day with meals. 60 tablet 5 5 09/23/19 25 Active lisinopriL (PRINIVIL,ZEST RIL) 20 mg tablet TAKE 1 TABLET BY MOUTH EVERY DAY 90 tablet 1 5 Active omeprazole (PriLOSEC) [address] capsule TAKE 1 CAPSULE BY MOUTH TWICE A DAY 60 capsule 5 5 Active HumaLOG KwikPen Insulin 100 unit/mL injection pen Use three times a day before meals: <100:0 units, 101-150: 4 units, 151-200: 5 units, 201-250: 6 units, 251-300: 7 units, >301: 8 units, 5 Active Lantus Solostar U-100 Insulin 100 unit/mL (3 mL) injection pen Use 24 units at bedtime 5 Active blood-glucose meter,continuo us (FreeStyle Tony 3 [place]) miscIndication s:Uncontrolled type 2 diabetes mellitus with hyperglycemia, with long-term current use of insulin ([facility]) CGM, use with tony sensor 1 each 5 Active blood-glucose sensor (FreeStyle Tony 3 Sensor) deviceIndicati ons:Uncontroll ed type 2 diabetes mellitus with hyperglycemia, with long-term current use of insulin (CMS/HCC) Box = Kit = EA, use one sensor every 14 days. 2 each 3 5 Active insulin degludec (TRESIBA FlexTouch) 100 unit/mL (3 mL) injection pen Inject 26 Units into the skin at bedtime. 4 04/30/19 25 Discontin ued(Alter howard therapy) UNABLE TO FIND Slow Magnesium/Calci um 70-117 MG Tab EC TAKE 1 TABLET BY MOUTH 3 TIMES A DAY FOR 60 DAYS 3 04/30/19 25 Discontin ued(Thera py completed ) HumaLOG KwikPen Insulin 100 unit/mL injection pen INJECT 5 UNITS INTO THE SKIN 3 TIMES DAILY. 15 mL 3 5 04/30/19 25 Discontin ued(Reord er) Lantus Solostar U-100 Insulin 100 unit/mL (3 mL) injection pen Inject 26 Units under the skin at bedtime. 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 While she is mostly compliant with her medications, sometimes she is taking her mealtime insulin inappropriately. They told her that she should only take the mealtime insulin before she eats. I tried to get a sense of what most of her blood sugar readings are, but she is kind of sporadic both with her meal timings as well as with her recording of her blood sugars. Today, I was unable to safely make any changes to her insulin due to this lack of data. Most of her fasting blood sugars tend to be within range and therefore I do not think we should make any change to the [place]. Today, the patient was asked to check her blood sugars at least 4 times a day for the next week. She is also to check her blood sugars if she has any symptoms or concern for low blood sugar. She will return to see me next week with a log of these blood sugars. At that point, it is my hope to slightly adjust her mealtime insulin. I have also asked the patient to be very cautious with her intake of sweets, as this alone may be enough to control her diabetes to a more reasonable degree. She voiced understanding and agree with the above plan. I will see her back in 7 days for recheck. Primary biliary cholangitis 02/06/2013 Overview (01/10/2024): Diagnosis at cholecystectomy 2012. Treatment with ursodiol initiated 02/06/2013. EGD 04/16/2013: no lesions suggestive of portal hypertension. Chronic cholecystitis 10/15/2012 Overview (01/10/2024): S/P CHOLECYSTECTOMY HTN (hypertension) 05/18/2012 Diabetes mellitus with renal manifestation 01/19 Renal cyst 02/08/2011 Overview (01/10/2024): Ultrasound 11/30: The left kidney measures 111 mm in length. There is a 38 x 28 x 32 mm cyst of the medial aspect of the left kidney. There is a 19 x 22 x 18 mm cyst of the lower pole of the left kidney. Saw Dr. Del Rosario, urology CKD (chronic kidney disease) stage 3, GFR 30-59 ml/min 03/19/2010 Diverticulitis of colon without hemorrhage 06/27 Overview (01/10/2024): Incidental finding at colonoscopy 06/28/2007. Pure hypercholesterolemia 11/07/2005 Adjustment disorder with depressed mood 05/27/19 06 Encounters Date Type Department Care Team Description 05/02/2024 Telephone Endocrinology - [address] [phone] Eveline Cruz PA Medication Problem 04/29/2024 2:20 PM EDT Consult Endocrinology - [address] [phone] Eveline Curz PA Uncontrolled type 2 diabetes mellitus with hyperglycemia, with long-term current use of insulin ([facility]) (Primary Dx); Hypertension, unspecified type; Pure hypercholesterolemia 03/26/2024 2:00 PM EST Office Visit Urogynecology - [address] [phone] Demi Fried MD Recurrent UTI (Primary Dx); Vaginal atrophy 03/06/2024 2:00 PM EST Office Visit Adult [address] [phone] Dante Brody PA Uncontrolled type 2 diabetes mellitus with hyperglycemia, with long-term current use of insulin ([facility]) (Primary Dx) 02/26/2024 2:30 PM EST Office Visit [address] [phone] Dante Brody PA Type II or unspecified type diabetes mellitus with neurological manifestations, uncontrolled(250.62) ([facility]) (Primary Dx) from Last 3 Months Immunizations Name Administration Dates Next Due Influenza Quadravalent, MDCK , 0.5ml, with preservative (Flucelvax) 6mo and older 12/19/2022 Influenza trivalent, 0.5mL ( Fluad) 65yo and older 12/18/2023,12/29/2021,12/17/2020,11/08,11/26/2017,11/24/2016,11/05/2015 ,11/12/2014,10/31/2011,11/01/2010,11/20,11/22/2008,12/17/2007, 6,12/06/2004 Influenza trivalent, 0.5mL, preservative free (Fluarix; FluLaval; Fluzone) ages 6mo and older (Afluria) 3 years and older 12/12/2006 Influenza, Unspecified 12/17/2020,10/21/2018 Pfizer (ages 12 & older) Biv alent, COVID-19 12/29/2021 Pneumococcal conjugate 13 va lent (Prevnar 13, PCV13) 2mo and older 11/19/2014 Pneumococcal polysaccharide 23 valent (Pneumovax 23) 2yo and older 03/09/2016,08/02/2000 TD, Adsorbed, Preservative Free 08/02/2000 Tdap Tetanus diptheria acell ular pertussis (Boostrix; Adacel) 7yo and older 04/28/2022,03/23/2015 Zoster Live 09/20/2014 Zoster recombinant (Shingrix ) 19yo and older 02/25/2018,12/05/2017 Surgical History Surgery Date Site/Laterality Comments APPENDECTOMY 1948 PROCEDURE: HISTORICAL APPENDECTOMY; COMMENT: Approximately age 14 FLEXIBLE SIGMOIDOSCOPY 01/05/2001 PROCEDURE: MT SIGMOIDOSCOPY FLX DX W/COLLJ SPEC BR/WA IF PFRMD; COMMENT: screening COLONOSCOPY 06/28/2007 PROCEDURE: MT COLONOSCOPY FLX DX W/COLLJ SPEC WHEN PFRMD; COMMENT: negative/ tics OTHER SURGICAL HISTORY PROCEDURE: ---- OTHER ----; COMMENT: breast cyst TUBAL LIGATION PROCEDURE: HISTORICAL TUBAL LIGATION UPPER GASTROINTESTINAL ENDOSCOPY 04/16/2013 PROCEDURE: MT UPPER GI ENDOSCOPY PERFORMED; COMMENT: no evidence of portal hypertension. MULTIPLE TOOTH EXTRACTIONS PROCEDURE: HISTORICAL DENTAL EXTRACTION BREAST BIOPSY Left PROCEDURE: BX BREAST; PERC NEEDLE CORE W/IMAG GUID; COMMENT: lt? breast bx neg GALLBLADDER Medical History Medical History Date Comments Pure hypercholesterolemia 11/07/2005 DX:Pur e hypercholesterolemia; COMMENT: pt prefers lipitor Essential hypertension, benign 10/20/2006 D X:Essential hypertension, benign Special screening for malign ant neoplasms, colon 06/28/2007 DX:Special screening for mal ignant neoplasms, colon; COMMENT: Negative colonoscopy 06/28/2007, no colon cancer screening needed for 10 years. Renal insufficiency 12/07/2009 DX:Renal ins ufficiency CKD (chronic kidney disease) stage 3, GFR 30-59 ml/min (CMS/HCC) 03/19/2010 DX:CKD (chronic kidney dise ase) stage 3, GFR 30-59 ml/min (HCC) Abnormal liver function test 09/22/2010 DX: Abnormal liver function test HTN (hypertension) 05/18/2012 DX:HTN (hyper tension) Chronic cholecystitis 10/15/2012 DX:Chronic cholecystitis; COMMENT: S/P CHOLECYSTECTOMY Family History Medical History Relation Name Comments Diabetes Brother Cirrhosis Daughter 1 primary biliary cirrhosis Heart attack Father from [place] ag e 65, COPD Diabetes Mother Diabetes Sister Colon cancer Neg Hx Relation Name Status Comments Brother Alive Daughter 1 Alive Daughter 2 Alive Daughter 3 Alive Father Maternal Grandfather Maternal Grandmother Mother Paternal Grandfather Paternal Grandmother Sister Alive Social History Tobacco Use Types Packs/Day Years Used Date Smoking Tobacco: Former Cigarettes Q uit: 02/20/1995 Smokeless Tobacco: Never Tobacco Cessation:Counseling Given: Not Answered Alcohol Use Standard Drinks/Week Comments Yes 0 (1 standard drink = 0.6 oz pur e alcohol) Comments No Sex and Gender Information Value Date Recorded Sex Assigned at Not on file Legal Sex Female 5:16 AM EST Gender Identity Not on file Sexual Orientation Not on file Obstetrics History Last Filed Vital Signs Vital Sign Reading Time Taken Comments Blood Pressure 118/86 04/29/2024 2:36 PM EDT Pulse 65 04/29/2024 2:36 PM EDT Temperature 36.1 ??C (97 ??F) 04/29/2024 2:36 PM EDT Respiratory Rate 14 03/26/2024 2:00 PM EST Oxygen Saturation 96% 04/29/2024 2:36 PM EDT Inhaled Oxygen Concentration - - Weight 79.3 kg (174 lb 12.8 oz) 04/29/2024 2:36 PM EDT Height 154.9 cm (5' 1 ) 04/29/2024 2:36 PM EDT Body Mass Index 33.03 04/29/2024 2:36 PM EDT Plan of Treatment Upcoming Encounters Date Type Department Care Team (Late st Contact Info) Description 06/24/2024 3:40 PM EDT Office Visit Endocrinology - [address] [phone] Eveline Cruz PA [address] [place] [address] 07/11/2024 2:00 PM EDT Office Visit Adult [facility] - [address] [phone] Gregory Carrion MD [address] [place] [address] 08/13/2024 3:10 PM EDT Appointment Radiology Department - [address] [phone] 09/11/2024 4:30 PM EDT Office Visit Nephrology - [address] [phone] Roland Mckeon MD [address] [place] [phone] 09/24/2024 3:00 PM EDT Office Visit Urogynecology - [place] [address] [place] [phone] Demi Fried MD [address] [facility] [address] [place] [address] Health Maintenance Due Date Last Done Comments Diabetes: Annual Retina Eye Exam 10/10/1945 RSV Immunization Adult Patients (1 - 1-dose 75+ series) 2012 Depression Screening 01/29/2022 Social Influencers of Health Screening 01/29/2022 COVID-19 Vaccine ( season) 2023 12/19/2022, 12/29/2021, 12/29/2020, Additional history exists Medicare Annual Wellness Visit 10/27/2023 10/26/2022 Diabetes: Blood Sugar Control Test (HGBA1C) 08/21/2024 02/22/2024, 08/03/2023, 08/02/2023 Hypertension/CHF/CAD Annual BMP Blood Test 12/10/2024 12/11/2023, 12/11/2023, 08/02/2023 Diabetes: Annual Foot Exam 12/17/2024 12/18/2023 Falls Risk Assessment 12/17/2024 12/18/2023 Cholesterol Screening (Lipid Panel) 12/10/2028 12/11/2023, 12/11/2023 Osteoporosis Screening (Bone Density Screening) 04/13/2032 04/13/2022, 01/09/2020 DTaP,Tdap,and Td Vaccines (3 - Td or Tdap) 04/28/2032 04/28/2022, 03/23/2015, 08/02/2000 Pneumococcal Vaccine: 50+ Years Completed 03/09/2016, 11/19/2014, 08/02/2000 Zoster Vaccines Completed 02/25/2018, 11/20, 09/20/2014 Influenza Vaccine Completed 12/18/2023, , 12/29/2021, Additional history exists HIB Vaccines Aged Out No longer eligi ble based on patient's age to complete this topic HPV Vaccines Aged Out No longer eligi ble based on patient's age to complete this topic Hepatitis A Vaccines Aged Out No long er eligible based on patient's age to complete this topic Hepatitis B Vaccines Aged Out No long er eligible based on patient's age to complete this topic IPV Vaccines Aged Out No longer eligi ble based on patient's age to complete this topic MMR Vaccines Aged Out No longer eligi ble based on patient's age to complete this topic Meningococcal ACWY Vaccine Aged Out N o longer eligible based on patient's age to complete this topic Meningococcal B Vacine Aged Out No lo nger eligible based on patient's age to complete this topic RSV Immunization Patients Under 20 months Aged Out No longer eligible based on patient's age to complete this topic Varicella Vaccines Aged Out No longer eligible based on patient's age to complete this topic Procedures Procedure Name Priority Date/Time Associated Diagnosis Comments POC URINE AUTO W/O MICRO Routine 03/26/2024 2:29 PM EST Recurrent UTI HEMOGLOBIN A1C Routine 02/22/2024 3:24 PM EST Diabetes mellitus of other type with other kidney complication, unspecified whether nursing home insulin use ([facility]) FALLS RISK ASSESSMENT Routine 12/18/2023 DIABETES FOOT EXAM Routine 12/18/2023 ANNUAL BMP BLOOD TEST Routine 12/11/2023 LIPID PANEL Routine 12/11/2023 DXA BONE DENSITY STUDY 1+ SITS AXIAL SKEL Routine 04/13/2022 3:00 PM EST Other specified disorders of bone density and structure, unspecified site from Last 3 Months or Most Recently Relevant to Health Maintenance Results * (ABNORMAL) POC Urine Auto W/O Micro (03/26/2024 2:29 PM EST) Glucose UA POC Negative Negative, Trace mg/dL Bilirubin UA POC Small Negative, Small Ketones UA POC 1+(A) Negative, Trace Specific [place] UA POC >=1.030 Blood UA POC Negative Negative, Large PH UA POC 5.5 Protein UA POC 30(A) Negative, >=300 mg/dL Urobilinogen UA POC 0.2 E.U./dL mg/dL Nitrite UA POC Negative Negative Leukocytes UA POC Negative Negative Urine Urine specimen obtained by clean catch procedure / Unknown 03/26/2024 2:29 PM EST Demi Fried MD POINT OF CARE TEST ENTER/EDIT O RDERABLES Final Result * (ABNORMAL) Hemoglobin A1c (02/22/2024 3:24 PM EST) [facility] Hemoglobin A1C 8.5(H) <6.5 % LAB CHEMISTRY METHOD 02/22/2024 9:19 PM EST [facility] Mean Bld Glu Estim. 197 mg/dL LAB CHEMISTRY METHOD 02/22/2024 9:19 PM EST [facility] Blood Venous blood specimen / Unknown Venipuncture / Unknown 02/22/2024 3:24 PM EST 02/22/2024 3:25 PM EST Result [facility] Gregory Carrion MD LAB BLOOD ORDERABLES Final Resul t [facility] [address] [place] [address], * Falls Risk Assessment (12/18/2023) [facility] Falls Risk Assessment abstracted Franci Young MD HEALTH MAINTENANCE Final Result * Diabetes Foot Exam (12/18/2023) [facility] Diabetes: Annual Foot Exam abstracted Franci Young MD HEALTH MAINTENANCE Final Result * Annual BMP Blood Test (12/11/2023) Pathologist [facility] Annual BMP Blood Test abstracted Franci Young MD HEALTH MAINTENANCE Final Result * (ABNORMAL) Lipid panel (12/11/2023) LDL/HDL Ratio 2 0 - 4 Triglycerides 154(A) 0 - 150 mg/dL Cholesterol 183 0 - 200 mg/dL HDL 79 >=40 mg/dL LDL Cholesterol 74 0 - 100 mg/dL Blood Venous blood specimen / Unknown us Historical Provider LAB BLOOD ORDERABLES Marge l Result * DXA BONE DENSITY STUDY 1+ SITS AXIAL SKEL (04/13/2022 3:00 PM EST) Anatomical Region Laterality Modality Bone Densitometr y 01/17/2022 3:22 PM EST Narrative 04/14/2022 1:23 PM EST BONE DENSITY (DEXA) ? Lumbar Spine T-score is -1.8. ?? (SD relative to 20-29 y/o adult) Z-score is 1.1. ??(SD relative to age matched peers) This is considered osteopenia by WHO criteria. Left Hip T-score is -1.9. Z-score is 0.6. This is considered osteopenia by WHO criteria. IMPRESSION: This patient is considered to have osteopenia by WHO criteria. This patient has a 14% risk of major osteoporotic fracture and a 4.0% risk of hip fracture over the next 10 years. (World Health Organization Fracture Risk Assessment) [facility] recommends using National Osteoporosis Foundation (NOF) guidelines in treatment decisions related to osteoporosis. NOF guidelines suggest considering treatment for postmenopausal women and men aged 50 or older presenting with the following: History of hip or vertebral fracture. T-score = -2.5 (DXA) at the femoral neck, total hip, or spine, after appropriate evaluation to exclude secondary causes. Low bone mass (T-score between -1.0 and -2.5 at the femoral neck or spine) AND a 10-year probability of a hip fracture = 3% OR a 10-year probability of a major osteoporosis-related fracture = 20% based on the [place]-adapted WHO algorithm Please note that all treatment decisions require clinical judgment and consideration of individual patient factors, including patient preferences, co-morbidities, previous drug use, risk factors not captured in the FRAX model (e.g., frailty, falls, vitamin D deficiency, increased bone turnover, interval significant decline in bone density) and possible under- or over-estimation of fracture risk by FRAX. Optional alternative screening schedule based on bambi Costa., [facility] March 10, 2011 for patients with osteopenia (based on hip BMD T-score) is as follows: * ??advanced osteopenia (T scores -2.00 to -2.49), BMD testing every year * ??moderate osteopenia (T scores -1.50 to -1.99), BMD testing every 5 years mild osteopenia or normal BMD (T scores -1.50 and higher), BMD testing every 15 years Procedure Note Kimberly Jones MD - 03/28/2023 BONE DENSITY (DEXA) Lumbar Spine T-score is -1.8. (SD relative to 20-29 y/o adult) Z-score is 1.1. (SD relative to age matched peers) This is considered osteopenia by WHO criteria. Left Hip T-score is -1.9. Z-score is 0.6. This is considered osteopenia by WHO criteria. IMPRESSION: This patient is considered to have osteopenia by WHO criteria. Thispatient has a 14% risk of major osteoporotic fracture and a 4.0% risk of hip fracture over the next10 years. (World Health Organization Fracture Risk Assessment) [facility] of [facility] Medicine recommendsusing National Osteoporosis Foundation (NOF) guidelines in treatment decisions related toosteoporosis. NOF guidelines suggest considering treatment for postmenopausal women and menaged 50 or older presenting with the following: History of hip or vertebral fracture. T-score = -2.5 (DXA) at the femoral neck, total hip, or spine, afterappropriate evaluation to exclude secondary causes. Low bone mass (T-score between -1.0 and -2.5 at the femoral neck or spine)AND a 10-year probability of a hip fracture = 3% OR a 10-year probability of a majorosteoporosis-related fracture = 20% based on the [place]-adapted WHO algorithm Please note that all treatment decisions require clinical judgment andconsideration of individual patient factors, including patient preferences, co- morbidities,previous drug use, risk factors not captured in the FRAX model (e.g., frailty, falls, vitaminD deficiency, increased bone turnover, interval significant decline in bone density) andpossible under- or over-estimation of fracture risk by FRAX. Optional alternative screening schedule based on bambi Costa., NEJMJanuary 2011 for patients with osteopenia (based on hip BMD T-score) is as follows: * advanced osteopenia (T scores -2.00 to -2.49), BMD testing every year * moderate osteopenia (T scores -1.50 to -1.99), BMD testing every 5years mild osteopenia or normal BMD (T scores -1.50 and higher), BMD testingevery 15 years [facility] Sheyla [facility] DXA PROCEDURES Final Result from Last 3 Months or Most Recently Relevant to Health Maintenance Insurance MEDICAID - [place] MEDICARE [facility] Care Teams Coil Maker Relationship Specialty Start Date End Date Gregory Carrion MD [address] [place] [address] PCP - General 12/12/1997
[2024-05-23 16:26] LABS: MANUAL DIFF FLAG NO
[2024-05-23 16:38] LABS: Basophils Absolute Auto 0.1 X10*3/uL (0.0-0.2); Basophils Percent Auto 0.6 % (0-2); Eosinophils Absolute Auto 0.2 X10*3/uL (0.0-0.4); Eosinophils Percent Auto 2.2 % (0-4); Hemoglobin 11.5 g/dl (12.0-16.0); Imm Gran Abs Auto 0.04 X10*3/uL (0.00-0.03); Imm Gran Pct Auto 0.4 % (0.0-0.4); Lymphocytes Percent Auto 22.6 % (20-40); Mean Corpuscular HGB Conc 31.9 g/dl (31.0-35.0); Mean Corpuscular Hemoglobin 28.5 pg (27.0-33.0); Mean Corpuscular Volume 89.1 fL (80.0-98.0); Mean Platelet Volume 11.7 fL (9.4-12.3); Monocytes Absolute Auto 0.6 X10*3/uL (0.1-1.2); Monocytes Percent Auto 6.9 % (2-11); Neutrophils Percent Auto 67.3 % (45-73); Platelet Count 199 X10*3/uL (160-400); Red Blood Count 4.04 X10*6/uL (4.20-5.50); White Blood Count 8.9 X10*3/uL (4.8-10.8)
[2024-05-23 16:39] LABS: Prothrombin Time 11.3 SEC (10.9-12.4)
[2024-05-23 16:44] LABS: Alanine Aminotransferase 7 U/L (0-31); Albumin Level 3.7 g/dL (3.5-5.0); Alkaline Phosphatase 75 U/L (39-117); Anion Gap 11 (12-20); Aspartate Amino Transferase 16 U/L (5-31); Bilirubin Total 0.3 mg/dL (0.0-1.0); Blood Urea Nitrogen 29 mg/dL (9-16); Calcium 9.1 mg/dL (8.4-10.2); Carbon Dioxide 27 mmol/L (22-29); Chloride 105 mmol/L (96-108); Estimated Glomerular Filt Rate 45; Glucose Random 225 mg/dL (60-115); Magnesium 1.5 mg/dL (1.6-2.6); Potassium 4.4 mmol/L (3.3-5.1); Sodium 139 mmol/L (135-145); Total Protein 6.7 g/dL (6.5-8.0)
== END 2024-05-23 14:48 | disposition home or self-care (01) ==
LOC: HO.HMGCLDS 14:47
PROVIDERS: PCP Internal Medicine; Visit Provider Internal Medicine Gastroenterology
DX: K75.81 Nonalcoholic steatohepatitis (NASH) (principal); K74.3 Primary biliary cirrhosis
CPT/HCPCS: 36415; 80053; 83735; 85025; 85610

== ENCOUNTER 2024-07-03 15:12 | Outpatient (REF) | payer MEDICARE, MEDICAID, SELFPAY ==
--- OUTSIDE RECORDS SUMMARY | 2024-07-03 15:18 | XMS_ITS | Data Portability ---
Author Organization [place] [facility] Address [address] [place] [address] Care Team Providers Care General Utility Maintenance Repairer Name Role Phone DALE HAGER Primary Care Provider Assessment Encounter Date Assessment Date Assessment LastModified by Organization Details LastModified Time 08/22/2018 08/22/2018 Overview/History : 82 yo female with PMH of diabetes, depression, HLD, HTN, CKD who presents with complain of diarrhea X3d. Patient reports that she took OTC pepto bismol which turned her stools black and she stopped taking it. She stated that diarrhea got better after taking pepto bismol but today she had another 2 loose stools. Patient also reports abdominal cramping in left lower quadrant; pain is 4/10 and better after she passes stools. Patient reports small amount of bright red bood on the toilet tissue; states that she has hemorrhoids and bleeding is probably the cause of that finding; described her stools as water with stool lumps . Patient also states that she feels fatigued today. Denied fever, chills, nausea, vomiting, bleeding, melena, dizziness, urinary symptoms or any other symptoms. Exam: elderly female well appearing, no acute distress, non-toxic appearance; alert and oriented X4 ambulates independently without difficulty Mucous membranes are pink, mildly dry without lesions Heart sounds are regular rate and rhythm; no audible murmurs, rubs, or gallops No signs of respiratory distress. Lungs are clear to auscultation in all fileds abdomen is soft, non distended. mild tenderness on palpation noted over left lower quadrant. Bowel sounds are normoactive and present in all quadrants Normal rectal sphincter tone; multiple external hemorrhoids present; no external lesions. Stool is normal in appearance. guac negative. DDx considered, but not limited to: gastroenteritis dehydration colitis diverticulitis IBS IBD Work up/Results: Chem 8 - WNL; BUN 18; Cr 1.2 (no previous studies to compare) fecal occult - negative CBC - pending Plan/Discussion: - based on clinical presentation gastroenteritis is the most likely diagnosis at this time - Chem 8 WNL; BUN and Cr values suggest mild dehydration - NS 1L IV bolus given on scene for rehydration - start loperamide 2mg PO; take 2 tabs first then 1 tab after each loose stool - left lower quadrant pain is concerning for diverticulitis, further evaluation is indicated; Contacted PCP office, spoke with triage nurse Brittany; PCP office will schedule patient for follow up and CT scan if clinically indicated at the time of follow up. - patient was advised to seek immediate medical attention/911/ED if symptoms worsen; worsening abdominal pain, nausea, vomiting or any other concerning symptoms. - patient expressed understanding and agreed to treatment plan In order to obtain further information and compare any laboratory results/values, I have accessed patient records on the [employer]. This information was pertinent in my medical decision making today. Time On Scene with Patient: 01:12:04 [email or web address] Not available 08/22/2018 15:06:09 04/25/2019 04/25/2019 Overview/History : 83-year-old female with 2-3 weeks of cough, shortness breath, wheeze. Denies fever, chest pain, palpitations, sore throat, ear pain. States has occasional sinus congestion. Using albuterol inhaler with last use last night, Mucinex, Flonase for relief. Exam: A febrile elderly female. Heart sounds regular, lungs with significant wheezing, fine crackles. No sinus tenderness noted, no cervical lymphadenopathy noted. DDx considered, but not limited to: Consider bacterial respiratory infection given course. Consider pneumonia patient afebrile making somewhat less likely. Consider viral respiratory infection although given time course, this appears less likely. Work up/Results: Plan/Discussion: Doxycycline 1 pill twice daily for 10 days as prescribed, patient received inital dose during visit today. Prednisone as prescribed, and tries may cause increased appetite, moodiness, Cheerios, patient also advised will increase blood glucose levels, advise monitor sugar carefully as patient is diabetic. Patient received initial dose during visit today. Will obtain chest x-ray to rule out pneumonia, further orders pending results. Patient advised if positive, would need repeat chest x-ray in 4-6 weeks through PCP. Continue Flonase per package direction. Continue albuterol inhaler as previously prescribed. Warm salt water gargles throughout the day for symptomatic relief. Drink plenty of fluids. Patient instructed to eat yogurt or take a probiotic daily to help prevent yeast infection. Patient instructed to finish all medications as prescribed even if feeling better. Patient instructed to call if symptoms worsen or do not improve; patient acknowledges understands and agrees with plan. Note created with voice recognition software and may contain grammatical errors due to this. In order to obtain further information and compare any laboratory results/values, I have accessed old patient records. This information was pertinent in my medical decision making today. Time On Scene with Patient: 00:30:13 [email or web address] Not available 04/25/2019 15:30:14 01/18/2021 01/18/2021 Overview/History : 85 y/o F with HTN, HLD, DM, Depression, Kidney Disease, known to and new to provider, is seeking further evaluation for cough with greenish yellow sputum production x 4 days with mild associated shortness of breath. The patient reports that approximately 3 weeks ago she went to [facility] ER and was diagnosed with pneumonia, started on Augmentin and discharged home. The patient reports using her albuterol pump frequently as well as Tussin DM and Tylenol with minimal relief. The patient reports just feeling fatigued and body aches as well. The patient denies any chest pain, shortness of breath at rest, fevers, chills, vomiting, diarrhea, abdominal pain, weakness, or loss of taste/smell. Patient states that her glucose has been under control. Patient is tolerating PO food and drink as normal. Exam: AAOx3 elderly, overweight, female, non-toxic appearing, in no acute distress, ambulatory, (+) wet cough on scene, (-) tachypnea or dyspnea Head: NC/AT (+) moist mucous membranes Heart: RRR with no murmurs, rubs or gallops Lungs: Scant bilateral expiratory wheezing with rales present of right lung base, with no ronchi present Abd: Soft, non-tender, non-distended Back: (-) CVA tenderness Extremities: Freely moving with no edema, 2+ distal pulses DDx considered, but not limited to: Pneumonia versus COVID-19 versus Bronchitis versus Other Viral Syndrome Work up/Results: Patient is non-toxic appearing in no acute distress. Patinet is afebrile to 98. HR is 98. BP is 124/74. RR is 18. O2sat is 96% on RA. Patient has bilateral expiratory wheezing with rales of the RLL base. Patient is in no acute respiratory distress. Will treat with steroids, antibiotics, and a new albuterol pump. Will also reassess with CXR to r/o pneumonia. Given recently being in hospital as well as with family for thanksgiving, will assess with rapid COVID-19 test and if negative will send out PCR. Rapid COVID-19 test on scene is negative. COVID-19 PCR ordered, obtained and sent to [facility] ER. CXR ordered to r/o pneumonia. Plan/Discussion: Lengthy discussion was had with patient regarding her symptoms and physical exam and there is concern for recurrent pneumonia at this time given rales of RLL with productive cough and shortness of breath. Patient's vital signs are stable with no tachypnea or dyspnea at this time. Advised patient that rapid COVID-19 test on scene is negative. 100 mg of Doxycycline and 20 mg of Prednisone administered on scene. Rx: Doxycycline 100 mg PO BID x 10 days, Prednisone 20 mg PO once daily x 5 days, Proair pump electronically prescribed to pharmacy. Advised patient that steroids can cause hyperglycemia so advised patient to monitor glucose 2-3 times daily and if her glucose is >300 than she is to discontinue steroids at that time. Advised patient to stay hydrated with lots of oral fluids. Advised that DH will be in contact with CXR results and only COVID-19 positive results as soon as they are received. Advised patient to monitor for worsening shortness of breath, chest pain, fevers, chills, worsening fatigue, weakness, lethargy, or decrease oral intake and if any of these are to occur then to call 911 and go to the ER or call DH back for re-evaluation. Patient verbalized her understanding of the diagnosis and need for follow up with PCP, as well as ER/DH return precautions. In order to obtain further information and compare any laboratory results/values, I have accessed old patient records. This information was pertinent in my medical decision making today. Proper Personal Protective Equipment (PPE), including gloves, eye protection, N95 mask, gown, and shoe covers were donned and doffed appropriately and all equipment cleaned using approved technique with germicidal disposable wipes prior to and after care of this patient [facility]. Not available 01/18/2021 12:08:03 12/16/2021 12/16/2021 Overview/History : 86 YO F new to and new to provider SHe has PMH of depression, diabetes, HTN, HLD, and CKD who presents today for 2- days of R arm and side pain . She thinks eh slept on her arm wrong the other day as she woke up and her R side ribcage and arm was hurting her when she moved it. She also lifted a heavy grocery bag the other day and she is unsure if this contributed as well. Addn it hurt only when she took a deep breath . Otherwise she denies any trauma or falls. There is no fever, chills, substernal chest pain, abd pain/jaw pain/l arm pain, SOB, weakness, numbness/tingling, hemoptysis. No other concerns or c/o today. Exam: Vitals: VSS and afebrile Constitutional: 86 yo Well developed, well nourished, pleasant patient in no apparent distress. Sitting upright, comfortable, and not toxic appearing. Eyes: corrective lenses, No swelling, no discharge, sclera / conjunctiva clear ENT: no nasal discharge, no erythema/ exudate noted in oropharynx, uvula midline, moist mucous membranes CV: RRR, no rubs/ murmurs/ gallops heard, 2+ radial pulses bilaterally, no edema and no calf tenderness BL, 2+ DP/ PT pulses bilaterally Pulm: breath sounds clear and equal bilaterally, no wheeze/ rhonchi or rales on auscultation. Speaks in full sentences, no increased work of breathing. Chest: R side lateral rib pain in area of 7-8 ribs, it is reproducible to palpation and there is no eccymoses or overlying rash. No crepitus. Equal chest rise BL. Reproducible when lifting her arm as well. L chest w/o tenderness. : No CVA tenderness bilaterally. MS: Spine nontender throughout. Self ambulatory patient, moves all limbs without deficit, no evidence of trauma, R arm is w/o deformity or deficit and/or tenderness. R side chest as per above. Neuro: No focal deficits, A&O x4, CN? s II-XII grossly normal Skin: No rash, no bruising, no open wounds. Visible skin appears cdi. Psych: Calm, cooperative, non-manic. Pleasant. DDx considered, but not limited to: ACS/PE - considered on d/t report of chest pain but it is more to her R side than her chest, it is fully reproducible, her VSS and she has no resp c/o. VSS and no s/s of DVT on exam as well. R Rib Fx/Muscle strain - no trauma/falls, no crepitus, ML muscel strain from heavy lifting Pneumothorax - I doubt fx ribs and lungs CTAB BL, trachea midline as well, no SOB Pna - slight cough belief d/t season, lungs CTAB, no fever, CXR to fully r/o and to see ribs Work up/Results: CXR pending Plan/Discussion: R Rib pain and arm pain likely d/t muscle strain: -happened after lifting heavy grocery bag at store and woke up next am w/ worse pain. 3 days ago, pain was at its worst yesterday and that is when she requested care. Seems she is better today -Pain is fully reproducible to palpation and movement. VSS and afebrile. Benign exam. -She has trialed lidocaine and ibuprofen w/o much relief, nothing else -She is not supposed to take ibuprofen she admits to me so I suggest lidocaine patches instead and she will try this. Also trial heat and ice which she has no try yet -She will trial this and she is hopeful it cont to improve -She will request re-eval if pain cont -F/u emergently for any worsening pain, fever, SOB, hemoptysis, substernal chest marquez, epigastric pain/abd pain/l arm pain/jaw pain, falls, weakness, numbness/tingling Pt is on agreement and verbalizes understanding with the above plans at this time. Pt has no other questions or concerns at this time. All questiosn are answered to the best of my ability. Pt thanks us for our visit today. In order to obtain further information and compare any laboratory results/values, I have accessed old patient records. This information was pertinent in my medical decision making today. ara Not available 12/16/2021 14:13:25 Plan of Treatment Reminders Order Date Submit Date Provider Last Modified By Organization Details Last Modified Time Details Appointments None recorded. Lab rapid SARS CoV + SARS CoV 2 Ag, QL IA, respiratory specimen 2020 [email or web address] [facility], [address] [facility], [place], [address], 11:38:16 unlisted lab - covid-19 (novel coronavirus ) PCR 2020 [email or web address] [facility] (Centralized Electronic Ordering - All Locations), Patient Can Go To The Location Of Their Choice, [id number] 21:25:34 CMP, serum or plasma 2018 019 [email or web address] [facility] (Centralized Electronic Ordering - All Locations), Patient Can Go To The Location Of Their Choice, [id number] 9 12:21:55 BMP + ionized calcium, serum or plasma 2018 019 [facility], [address] [place], [address], 9 12:07:40 fecal occult blood, stool 2018 019 [facility], [address] [place], [address], 9 12:07:40 CBC w/ auto diff 2018 019 MARISEL [facility] (Centralized Electronic Ordering - All Locations), Patient Can Go To The Location Of Their Choice, [id number] 9 02:20:25 Referral None recorded. Procedures None recorded. Surgeries None recorded. Imaging XR, chest, 2 view - patient w/ right sided rib pain in area of 6th-8th ribs on the R side. Reproducibl e and no cough or SOB noted. Lungs are clear. She does have hx of pna and slight cough so would like r/o or any obvious deformity/i njury to the rib if any can be seen. Thank you. 2021 022 Replaced by [facility] ([facility]), [address], [place], [address], 2 11:13:11 XR, chest, 2 view - cough, r/o pneumonia 2020 [facility] [address], [place], [address], 1 10:50:01 XR, chest, 2 view 2019 020 [facility] ([facility]), [address] [facility], [place], [address], 0 10:08:18 Medication Orders ProAir HFA 90 mcg/actuati on aerosol inhaler 2020 021 [facility]/Pharmacy #2339, [address] [place] [address], [address], 1 11:41:42 prednisone 10 mg tablet 2020 021 [facility]/Pharmacy #2339, [address] [place] [address], [address], 2 13:40:58 doxycycline hyclate 100 mg capsule 2020 021 [facility]/Pharmacy #2339, [address] [place] [address], [address], 2 13:40:22 doxycycline hyclate 100 mg tablet 2020 021 [facility]/Pharmacy #2339, [address] [place] [address], [address], 2 13:40:25 prednisone 20 mg tablet 2020 021 [facility]/Pharmacy #2339, [address] [place] [address], [address], 2 13:41:03 doxycycline hyclate 100 mg capsule 2019 020 [email or web address]/Pharmacy #2339, [address] [place], [address], 2 13:40:22 prednisone 10 mg tablet 2019 020 [email or web address] Not available 2 13:40:58 doxycycline hyclate 100 mg tablet 2019 020 [email or web address]/Pharmacy #2339, [address] [place], [address], 2 13:40:25 prednisone 20 mg tablet 2019 020 [email or web address]/Pharmacy #2339, [address] [place], [address], 2 13:41:03 sodium chloride 0.9 % intravenous solution 2018 019 [facility]/Pharmacy #2339, [address] [place], [address], 0 14:10:43 loperamide 2 mg tablet 2018 019 [facility], [address] [place], [address], 0 14:10:57 Patient TargetsNo targets recorded. Patient Instructions Encounter Date Encounter Id Patient Instructions Last Modified By Organization Details Last Modified Time 08/22/2018 [id number] diarrhea: care instructions [email or web address] Not available 08/22/2018 12:07:40 Acute Nausea and Vomiting/Diarrhea YOU WERE SEEN FOR ABDOMINAL PAIN AND DIARRHEA TODAY. YOU WERE MILDLY DEHYDRATED; YOUR BLOOD ELECTROLYTES AND KIDNEY FUNCTION WERE WITHIN NORMAL LIMITS MEDICATIONS FOR DIARRHEA WERE SENT TO YOUR PHARMACY. PLEASE, TAKE ADVISED DRINK PLENTY OF FLUIDS TO STAY HYDRATED EAT LIGHT DIET AND STAY AWAY FROM FATTY FOODS AND SUGARY DRINKS WE RECOMMEND FURTHER EVALUATION FOR POSSIBLE DIVERTICULITIS. PLEASE, CONTACT YOUR PRIMARY CARE DOCTOR TO SCHEDULE AN APPOINTMENT. WE WILL CONTACT YOUR DOCTORS OFFICE WITH RECOMMENDATIONS SEEK IMMEDIATE MEDICAL ATTENTION OR CALL 911 IF YOUR SYMPTOMS WORSEN OF IF YOU DEVELOP ANY NEW CONCERNING SYMPTOMS BASIC INFORMATION Acute nausea and vomiting often start suddenly, worsen quickly, and last a few hours to 24 hours. Nausea and vomiting most often occur together, although they can occur alone. Cases of acute nausea and vomiting are often from gastrointestinal viruses such as norovirus, rotavirus and influenza. Less often it can be caused by toxins released from food that ? goes bad? as well as some types of bacteria and parasites. Diarrhea can also occur. Your nurse practitioner will conduct a careful history to help determine if you have one of the more serious causes. The cause of your nausea and vomiting may be unknown. INSTRUCTIONS Medicines: 1) Anti-nausea: You may have been given a prescription for an anti nausea medicine such as Zofran, Phenergan or Compazine. These can be used every 6-8 hours to help prevent nausea and vomiting. They can make you sleepy, so do not drive after taking them. Be sure to read all of the drug information from the pharmacy. 2) Tylenol: Low grade fever is common with acute nausea and vomiting. You may use Tylenol, per the recommended dosing on the label, to help control fever. If you have liver disease, do not use Tylenol. Ask your ROLLER OPERATOR how to address fever if you are concerned about Tylenol use. 3) Anti-diarrheal medicines: These are available [id number], but in some cases are not recommended and can even worsen some cases of intestinal problems. Ask your ROLLER OPERATOR if you should use them. In children under 12, the only anti-diarrheal that should be considered is Kaopectate. Diet: 1) For the next 12-24 hours, take clear liquids only. No dairy and no caffeinated beverages. After you have not vomited for a complete hour (either with or without the help of the anti-nausea medicine), begin by taking one tablespoon of clear liquid every 15 minutes for one hour. If you are able to tolerate this, you may increase the amount to 2 tablespoons every hour for the next 2 hours. 2) Clear liquids such as gatorade, pedialyte or broth are recommended because of the electrolytes and sugars that will help replenish the losses from vomiting and diarrhea. 3) If you are able to tolerate clear liquids as instructed above, you may begin to take a bland diet. Plain pasta/noodles or toast are suggestions. If you have had diarrhea, bananas, rice and applesauce are suggested as these can help make the stools more solid. Avoid greasy, fatty or fried foods FOLLOW UP You should make an appointment to see your primary care provider within 24 hours or sooner for worsening condition as described below. If you do not have a primary care doctor, you should follow up with one of the PCP suggestions from [facility]. SEEK CARE IMMEDIATELY IF: 1) You are still unable to tolerate any oral intake after 24 hours 2) You have blood in your vomit or stool 3) You develop severe abdominal pain that does not go away after an episode of vomiting or diarrhea 4) You have severe dizziness, heart palpitations or are passing out 5) You develop severe muscle cramps or weakness 6) You have not made urine in over 24 hours If you develop any new or worsening symptoms and need after hours care, please go to nearest ER and/or call 911. If you have additional concerns or develop a change in your condition between 8am-10pm, please call [facility] at [phone] to help navigate your care. [facility]. You were seen today for abdominal pain, nausea, vomiting and/or diarrhea. Medications may have been administered and lab tests may have been performed. At this time, we do not see evidence of a serious surgical or infectious cause of your symptoms. However, lab tests and an evaluation cannot always exclude appendicitis or other serious causes of abdominal pain. Please see a medical professional in 12-24 hours to be re-examined. Seek immediate medical attention for increased pain, vomiting or fever. If you develop any new or worsening symptoms and need after hours care, please go to nearest ER and/or call 911. If you have additional concerns or develop a change in your condition between 8am-10pm, please call [facility] at [phone] to help navigate your care. [email or web address] Not available 08/22/2018 12:16:32 01/18/2021 [id number] Thank you for yo ur visit with [facility] today. We cannot always find the exact cause of your symptoms during your initial visit. Please follow up with your primary care provider or specialist within 12-24 hours within 24-48 hours to be rechecked or seek medical attention if your symptoms do not go away or get worse. If you develop any new or worsening symptoms and need after hours care, please go to nearest ER and/or call 911. If you have additional concerns or develop a change in your condition between 8am-10pm, please call [facility] at [phone] to help navigate your care. Not available 01/18/2021 12:08:07 12/16/2021 [id number] Thank you for yo ur visit with [facility] today. We cannot always find the exact cause of your symptoms during your initial visit. Please follow up with your primary care provider or specialist within 12-24 hours within 24-48 hours within 2-3 days to be rechecked or seek medical attention if your symptoms do not go away or get worse. If you develop any new or worsening symptoms and need after hours care, please go to nearest ER and/or call 911. If you have additional concerns or develop a change in your condition between 8am-10pm, please call [facility] at [phone] to help navigate your care. Thank you for your visit with [facility] today. You do not appear to have a fracture or dislocation that requires immediate surgical intervention. However, small breaks or ligament tears may not be obvious on initial examination. Given this concern, we may have placed you in a temporary splint. If an xray is indicated, we will help direct you to the best option to obtain your imaging study. We have also given you follow up directions. Please follow up with your primary care physician or specialist as directed. If you develop any new or worsening symptoms and need after hours care, please go to nearest ER and/or call 911. If you have additional concerns or develop a change in your condition between 8am-10pm, please call [facility] at [phone] to help navigate your care. [email or web address] Not available 12/16/2021 14:27:33 Reason for Referral None Reported. Results Created Date Observation Date Name Description Value Unit Range Abnormal Flag Note LastModifiedBy Organization Detail LastModifiedTime 08/23/1908/22/2018 fecal occul t blood , stool Occult Blood negati ve Not Available [facility] - [address] [place], [address], 08/22/2018 11:48:56 08/23/1908/22/2018 BMP + ioniz ed calci um, serum or plasm a Na 141 mmol/ L 136-14 5 Not Available Spr - Home [address] [place], [address], 08/22/2018 11:27:46 08/23/1908/22/2018 BMP + ioniz ed calci um, serum or plasm a K 4.1 mmol/ L 3.5-5. 1 Not Available Spr - Home [address] [place], [address], 08/22/2018 11:27:46 08/23/1908/22/2018 BMP + ioniz ed calci um, serum or plasm a cL 102 mmol/ L 96-111 Not Available [facility] - Home [address] [place], [address], 08/22/2018 11:27:46 08/23/1908/22/2018 BMP + ioniz ed calci um, serum or plasm a ica 1.12 mmol/ L 1.1-1. 4 Not Available [facility] - Home [address] [place], [address], 08/22/2018 11:27:46 08/23/1908/22/2018 BMP + ioniz ed calci um, serum or plasm a TCO2 26 mmol/ L 20-30 Not Available [facility] - Home [address] [place], [address], 08/22/2018 11:27:46 08/23/1908/22/2018 BMP + ioniz ed calci um, serum or plasm a glu 234 mg/dL 70-115 Not Available [facility] - Home [address] [place], [address], 08/22/2018 11:27:46 08/23/1908/22/2018 BMP + ioniz ed calci um, serum or plasm a BUN 18 mg/dL 6-24 Not Available [facility] - Home [address] [place], [address], 08/22/2018 11:27:46 08/23/1908/22/2018 BMP + ioniz ed calci um, serum or plasm a crea 1.2 mg/dL .65-1. 36 Not Available [facility] - Home [address] [place], [address], 08/22/2018 11:27:46 08/23/1908/22/2018 BMP + ioniz ed calci um, serum or plasm a HCT 39 %_pcv 40.6-5 0.3 Not Available Spr - Home [address] [place], [address], 08/22/2018 11:27:46 08/23/1908/22/2018 BMP + ioniz ed calci um, serum or plasm a Hb 13.3 g/dL 13.9-1 7.4 Not Available Spr - Home [address] [place], [address], 08/22/2018 11:27:46 08/23/1908/22/2018 BMP + ioniz ed calci um, serum or plasm a angap 18 mmol/ L 6-18 Not Available [facility] - Home [address] [place], [address], 08/22/2018 11:27:46 08/23/1908/23/2018 CBC w/ auto diff WBC 8.0 K/mm3 (4.0-1 1.0) Not Available [facility] (Centralized Electronic Ordering - All Locations) Patient Can Go To The Location Of Their Choice, [id number] 08/23/2018 02:20:25 08/23/1908/23/2018 CBC w/ auto diff RBC 4.33 M/mm3 (4.20- 5.40) Not Available [facility] (Centralized Electronic Ordering - All Locations) Patient Can Go To The Location Of Their Choice, [id number] 08/23/2018 02:20:25 08/23/1908/23/2018 CBC w/ auto diff HGB 12.0 gm/dL (11.7- 15.5) Not Available [facility] (Centralized Electronic Ordering - All Locations) Patient Can Go To The Location Of Their Choice, 08/23/2018 02:20:08/23/1908/23/2018 CBC w/ auto diff HCT 40.0 % (35.7- 45.8) Not Available [facility] (Centralized Electronic Ordering - All Locations) Patient Can Go To The Location Of Their Choice, 08/23/2018 02:20:08/23/1908/23/2018 CBC w/ auto diff MCV 92.4 fL (80.0- 100.0) Not Available [facility] (Centralized Electronic Ordering - All Locations) Patient Can Go To The Location Of Their Choice, 08/23/2018 02:20:08/23/1908/23/2018 CBC w/ auto diff MCH 27.7 pg (27.0- 34.0) Not Available [facility] (Centralized Electronic Ordering - All Locations) Patient Can Go To The Location Of Their Choice, 08/23/2018 02:20:08/23/1908/23/2018 CBC w/ auto diff MCHC 30.0 g/dL (33.0- 37.0) low Not Available [facility] (Centralized Electronic Ordering - All Locations) Patient Can Go To The Location Of Their Choice, 08/23/2018 02:20:08/23/1908/23/2018 CBC w/ auto diff plt 138 K/mm3 (150-4 60) low Not Available [facility] (Centralized Electronic Ordering - All Locations) Patient Can Go To The Location Of Their Choice, 08/23/2018 02:20:08/23/1908/23/2018 CBC w/ auto diff RDW-SD 44.4 fL (<47.0 ) Not Available [facility] (Centralized Electronic Ordering - All Locations) Patient Can Go To The Location Of Their Choice, 08/23/2018 02:20:08/23/1908/23/2018 CBC w/ auto diff MPV 12.9 fL (9.4-1 2.4) high Not Available [facility] (Centralized Electronic Ordering - All Locations) Patient Can Go To The Location Of Their Choice, 08/23/2018 02:20:08/23/1908/23/2018 CBC w/ auto diff automated NRBC 0.0 #/100 _WBC' s Not Available [facility] (Centralized Electronic Ordering - All Locations) Patient Can Go To The Location Of Their Choice, 08/23/2018 02:20:25 08/23/1908/23/2018 CBC w/ auto diff abs. NRBC 0.0 K/mm3 Not Available [facility] (Centralized Electronic Ordering - All Locations) Patient Can Go To The Location Of Their Choice, 08/23/2018 02:20:25 08/23/1908/23/2018 CBC w/ auto diff neut # 5.5 K/mm3 (1.3-7 .0) Not Available [facility] (Centralized Electronic Ordering - All Locations) Patient Can Go To The Location Of Their Choice, 08/23/2018 02:20:25 08/23/1908/23/2018 CBC w/ auto diff lymph # 1.7 K/mm3 (0.8-3 .1) Not Available [facility] (Centralized Electronic Ordering - All Locations) Patient Can Go To The Location Of Their Choice, 08/23/2018 02:20:25 08/23/1908/23/2018 CBC w/ auto diff mono# 0.5 K/mm3 (0.4-0 .9) Not Available [facility] (Centralized Electronic Ordering - All Locations) Patient Can Go To The Location Of Their Choice, 08/23/2018 02:20:25 08/23/1908/23/2018 CBC w/ auto diff eo # 0.2 K/mm3 (0.0-0 .4) Not Available [facility] (Centralized Electronic Ordering - All Locations) Patient Can Go To The Location Of Their Choice, 08/23/2018 02:20:25 08/23/1908/23/2018 CBC w/ auto diff baso # 0.0 K/mm3 (0.0-0 .1) Not Available [facility] (Centralized Electronic Ordering - All Locations) Patient Can Go To The Location Of Their Choice, 08/23/2018 02:20:25 08/23/1908/23/2018 CBC w/ auto diff abs. imm gran 0.0 K/mm3 Not Available [facility] (Centralized Electronic Ordering - All Locations) Patient Can Go To The Location Of Their Choice, [facility] 08/23/2018 02:20:25 08/23/1908/23/2018 CBC w/ auto diff neut 68.7 % (44-76 ) Not Available [facility] (Centralized Electronic Ordering - All Locations) Patient Can Go To The Location Of Their Choice, [facility] 08/23/2018 02:20:25 08/23/1908/23/2018 CBC w/ auto diff lymph 21.0 % (15-43 ) Not Available [facility] (Centralized Electronic Ordering - All Locations) Patient Can Go To The Location Of Their Choice, [facility] 08/23/2018 02:20:25 08/23/1908/23/2018 CBC w/ auto diff monocyte 6.6 % (4.5-1 0.5) Not Available [facility] (Centralized Electronic Ordering - All Locations) Patient Can Go To The Location Of Their Choice, [facility] 08/23/2018 02:20:25 08/23/1908/23/2018 CBC w/ auto diff eo 2.9 % (0-6) Not Available [facility] (Centralized Electronic Ordering - All Locations) Patient Can Go To The Location Of Their Choice, [facility] 08/23/2018 02:20:25 08/23/1908/23/2018 CBC w/ auto diff baso 0.5 % (0-2) Not Available [facility] (Centralized Electronic Ordering - All Locations) Patient Can Go To The Location Of Their Choice, [facility] 08/23/2018 02:20:25 08/23/1908/23/2018 CBC w/ auto diff imm gran 0.3 % Not Available [facility] (Centralized Electronic Ordering - All Locations) Patient Can Go To The Location Of Their Choice, [facility] 08/23/2018 02:20:25 01/19/20 21 01/18/2021 COVID -19 (NOVE L CORON AVIRU S) PCR covid-19 PCR specimen source NASAL Not Available [facility] (Centralized Electronic Ordering - All Locations) Patient Can Go To The Location Of Their Choice, [facility] 01/25/2021 15:12:30 01/19/20 21 01/20/2021 COVID -19 (NOVE L CORON AVIRU S) PCR covid-19 PCR result (neg) NEGAT MAURY 2019- novel Coron aviru s (2019 -nCoV ) not detec mile by real- time RT-PC R. Note: If clini bhakti suspi cion for COVID -19 is high, rivera nue to maint ain preca ution s and consi tayler repea t testi ng. Resul t repor mile to the [facility]. To preve nt error s in diagn osis, test resul ts shoul d be inter prete d in the ce xt of clini bhakti findi ngs and other labor atory data. Rare polym orphi sms exist that could lead to false -nega tive or false -posi tive resul ts. If resul ts obtai maryanne do not match the clini bhakti findi ngs, addit ional testi ng shoul d be consi dered . This test has been autho rized by the FDA under an Emerg ency Use Autho rizat ion (EUA) for use by autho rized labor atori es. Testi ng perfo rmed by real time PCR utili [facility] [employer] SARS- CoV-2 test. Not Available [facility] (Centralized Electronic Ordering - All Locations) Patient Can Go To The Location Of Their Choice, [id number] 01/25/2021 15:12:30 01/19/20 21 01/18/2021 rapid SARS CoV + SARS CoV 2 Ag, QL IA, respi rator y speci men Covid-19 (ref: neg) negati ve Not Available [facility] - Home [address] [place], [address], 01/18/2021 11:36:28 01/19/20 21 01/18/2021 rapid SARS CoV + SARS CoV 2 Ag, QL IA, respi rator y speci men Control Visual ized/V alid Not Available Spr - Home [address] [place], [address], 01/18/2021 11:36:28 01/19/20 21 01/18/2021 rapid SARS CoV + SARS CoV 2 Ag, QL IA, respi rator y speci men Location [facility] [address] [place] [address], [id number] Not Available [facility] - Home [address], [place], [address], 01/18/2021 11:36:28 04/26/19 20 04/26/2019 XR, chest , 2 view XRAY CHEST 2 VIEW FINDIN GS: Lungs: No focal consol idatio n. Pulmon juan carlos vascul ature is within normal limits . Pleura : No pneumo thorax . No pleura l effusi on. Heart and Medias tinum: The cardio medias tinal silhou ette is normal in size and contou r. Osseou s struct ures: Visual ized osseou s struct ures are stable . No radiop aque foreig n body. CONCLU JOYCE: No acute cardio pulmon juan carlos proces s. ELECTR ONICAL LY SIGNED BY IRAIS BOOTH M.D. 04/26/19 10:02: 44 AM EST. XRAY CHEST 2 VIEW Result s: Lungs: No focal consol idatio n. Pulmon juan carlos vascul ature is within normal limits . Pleura : No pneumo thorax . No pleura l effusi on. Heart and Medias tinum: The cardio medias tinal silhou ette is normal in size and contou r. Osseou s struct ures: Visual ized osseou s struct ures are stable . No radiop aque foreig n body. Conclu joyce: No acute cardio pulmon juan carlos proces s. Electr onical ly signed by IRAIS BOOTH M.D. 04/26/19 10:02: 44 AM EST. [email or web address] [facility] ([facility] [email or web address]) [address] [facility], [place], [address], 04/27/2019 10:12:54 01/20/20 21 XR, chest , 2 view No observ ation record ed. [email or web address] [facility] ([facility]) [address] [facility], [place], [address], 01/20/2021 12:09:43 12/18/19 22 12/17/2021 XR, chest , 2 view XRAY CHEST 2 VIEW FINDIN GS: The lungs are free of active pulmon juan carlos diseas e. There is no mass, infilt rate, consol idatio n, or effusi on. There is no adenop athy, the medias tinum is normal . The osseou s struct ures are normal . CONCLU JOYCE: Normal chest ELECTR ONICAL LY SIGNED BY RENEE SKINNER M.D. 2021 11:02: 05 AM EDT. XRAY CHEST 2 VIEW Result s: The lungs are free of active pulmon juan carlos diseas e. There is no mass, infilt rate, consol idatio n, or effusi on. There is no adenop athy, the medias tinum is normal . The osseou s struct ures are normal . Conclu joyce: Normal chest Electr onical ly signed by RENEE SKINNER M.D. 2021 11:02: 05 AM EDT. [email or web address] [employer] [address], [address], 12/19/2021 16:37:44 Result Notes None recorded. Procedures Surgical History Date Name Laterality Status Provider Name and Address Organization Details Recorded Time 019 IV Start Procedure - DH completed KENNETH OLMOS [address], [place], [address], [place] [facility] 08/22/2018 12:10:26 cholecystectomy completed KENNETH Boland [address] [place], [address], [place] [facility] 12/16/2021 13:41:37 Imaging Results Imaging Date Name Status [facility]Modified [facility] Details LastModified Time 04/26/2019 XR, chest, 2 view completed holly [facility] ([email or web address]) [address], [place], [address], 04/27/2019 10:12:54 01/19/2021 XR, chest, 2 view completed [email or web address] [facility] [employer] [facility] ([employer]) [address] [facility], [place], [address], 01/20/2021 12:09:43 12/17/2021 XR, chest, 2 view completed [email or web address] [address] [facility] [address], [place], [address], 12/19/2021 16:37:44 Procedure Notes None recorded. Medical Equipment None Reported. Allergies No known drug allergies Medications Name Sig Start Date Stop Date Status Note LastModified by Organization Details LastModified Time amoxicillin 500 mg capsule 04/24 completed Not Available Not Available Not Available prednisone 10 mg tablet 20 mg PO administe red on scene. Time administe red: 1130 12/16 completed Not Available Not Available Not Available doxycycline hyclate 100 mg capsule 100 mg PO x ONCE 12/16 completed Not Available Not Available Not Available loperamide 2 mg capsule 01/18 completed Not Available Not Available Not Available trazodone 50 mg tablet 08/22 completed Not Available Not Available Not Available azithromyci n 250 mg tablet TAKE 2 TABLETS BY MOUTH TODAY, THEN TAKE 1 TABLET DAILY FOR 4 DAYS 12/16 completed Not Available Not Available Not Available phenazopyri dine 200 mg tablet PLEASE SEE ATTACHED FOR DETAILED DIRECTION S 12/16 completed Not Available Not Available Not Available lisinopril 20 mg tablet TAKE 1 TABLET BY MOUTH EVERY DAY active Not Available Not Available No t Available prednisone 20 mg tablet Take 1 tablet every day by oral route as directed for 5 days. 12/16 completed Not Available Not Available Not Available loperamide 2 mg tablet Take 1 tablet by oral route for 5 days. 04/24 completed Not Available Not Available Not Available meclizine 12.5 mg tablet TAKE 1 TABLET EVERY 8 HOURS active Not Available Not Available No t Available ciprofloxac in 500 mg tablet TAKE 1 TABLET BY MOUTH EVERY 12 HOURS FOR 7 DAYS 12/16 completed Not Available Not Available Not Available hydrocortis one acetate 25 mg rectal suppository 12/16 completed Not Available Not Available Not Available alprazolam 0.5 mg tablet 01/18 completed Not Available Not Available Not Available alprazolam 0.25 mg tablet TAKE 1 TABLET BY MOUTH EVERY DAY NEEDED active Not Available Not Available No t Available trazodone 100 mg tablet 08/22 completed Not Available Not Available Not Available OneTouch Ultra Test strips active Not Available Not Available Not Available benzonatate 100 mg capsule TAKE 1 CAPSULE BY MOUTH THREE TIMES A DAY NEEDED FOR COUGH 12/16 completed Not Available Not Available Not Available cephalexin 500 mg capsule TAKE 1 CAPSULE BY MOUTH THREE TIMES A DAY FOR 7 DAYS 12/16 completed Not Available Not Available Not Available nortriptyli ne 10 mg capsule TAKE 1 CAPSULE BY MOUTH EVERY DAY AT BEDTIME 12/16 completed Not Available Not Available Not Available nitrofurant oin macrocrysta l 100 mg capsule 01/18 completed Not Available Not Available Not Available omeprazole 20 mg capsule,del ayed release TAKE 1 CAPSULE BY MOUTH TWICE A DAY active Not Available Not Available No t Available raloxifene 60 mg tablet TAKE 1 TABLET BY MOUTH EVERY DAY active Not Available Not Available No t Available gabapentin 100 mg capsule TAKE 1 CAPSULE BY MOUTH AT BEDTIME 12/16 completed Not Available Not Available Not Available sodium chloride 0.9 % intravenous solution 1 L administe red on scene. Time administe red: 1145 04/24 completed Not Available Not Available Not Available nystatin 100,000 unit/gram topical powder 12/16 completed Not Available Not Available Not Available methylpredn isolone 4 mg tablets in a dose pack TAKE 6 TABLETS ON DAY 1 DIRECTED ON PACKAGE AND DECREASE BY 1 TAB EACH DAY FOR A TOTAL OF 6 DAYS 12/16 completed Not Available Not Available Not Available albuterol sulfate HFA 90 mcg/actuati on aerosol inhaler INHALE 2 PUFFS INTO LUNGS EVERY 4 HOURS NEEDED FOR DYSPNEA active Not Available Not Available No t Available ketoconazol e 2 % topical cream 12/16 completed Not Available Not Available Not Available ondansetron 4 mg disintegrat ing tablet TAKE 1 TABLET EVERY 6-8 HOURS NEEDED FOR NAUSEA 12/16 completed Not Available Not Available Not Available fluticasone propionate 50 mcg/actuati on nasal spray,suspe nsion INSTILL 2 SPRAYS BY NASAL ROUTE EVERY DAY active Not Available Not Available No t Available doxycycline hyclate 100 mg tablet Take 1 tablet twice a day by oral route as directed for 10 days. 12/16 completed Not Available Not Available Not Available amoxicillin 875 mg-potassiu m clavulanate 125 mg tablet 12/16 completed Not Available Not Available Not Available oxycodone 5 mg tablet 08/22 completed Not Available Not Available Not Available escitalopra m 10 mg tablet TAKE 1 TABLET BY MOUTH EVERY DAY active Not Available Not Available No t Available Novolog Mix 70-30 FlexPen U-100 Insulin 100 unit/mL subcutaneou s pen active Not Available Not Available Not Available Novolog FlexPen U-100 Insulin aspart 100 unit/mL (3 mL) subcutaneou s INJECT 5 UNITS INTO THE SKIN 3 TIMES DAILY (BEFORE MEALS). active Not Available Not Available No t Available rosuvastati n 10 mg tablet TAKE 1 TABLET BY MOUTH EVERY DAY active Not Available Not Available No t Available metoprolol tartrate 25 mg tablet TAKE 1 TABLET BY MOUTH TWICE A DAY active Not Available Not Available No t Available nitrofurant oin monohydrate /macrocryst als 100 mg capsule TAKE 1 CAPSULE BY MOUTH TWICE A DAY FOR 5 DAYS 12/16 completed Not Available Not Available Not Available OneTouch UltraSoft Lancets active Not Available Not Available Not Available ursodiol 500 mg tablet TAKE 1 TABLET BY MOUTH TWICE A DAY active Not Available Not Available No t Available BD Ultra-Fine Short Pen Needle 31 gauge x 5/16 USE TO ADMINISTE R INSULIN FOUR TIMES A DAY active Not Available Not Available No t Available oseltamivir 30 mg capsule 08/22 completed Not Available Not Available Not Available Artificial Tears (glycerin-p eg) 1 %-0.3 % eye drops 01/18 completed Not Available Not Available Not Available BD AutoShield Duo Pen Needle 30 gauge x 3/16 active Not Available Not Available Not Available Levemir FlexTouch U-100 Insulin 100 unit/mL (3 mL) subcutaneou s pen active Not Available Not Available Not Available Basaglar KwikPen U-100 Insulin 100 unit/mL (3 mL) subcutaneou s INJECT 26 UNITS DIRECTED DAILY. active Not Available Not Available No t Available Shingrix (PF) 50 mcg/0.5 mL intramuscul ar suspension, kit 12/16 completed Not Available Not Available Not Available Vitals Date Recorded Respiratory rate Heart rate Body temperature Oxygen saturation Oxygen saturation in Arterial blood by Pulse oximetry Systolic blood pressure Diastolic blood pressure Provider Name and Address Organization Details Last Updated DateTime 0 15 /min 78 /min 98 [degF] 98 % 98 % 158 mm[Hg] 78 mm[Hg] Not Available [facility] 0 14:18:10 Date Recorded Heart rate Body temperature Oxygen saturation Oxygen saturation in Arterial blood by Pulse oximetry Respiratory rate Oxygen saturation Oxygen saturation in Arterial blood by Pulse oximetry Systolic blood pressure Diastolic blood pressure Provider Name and Address Organization Details Last Updated DateTime 1 98 /min 98 [degF] 94 % 94 % 18 /min 96 % 96 % 126 mm[Hg] 74 mm[Hg] Not Available [facility] 1 11:23:43 Date Recorded Heart rate Respiratory rate Oxygen saturation Oxygen saturation in Arterial blood by Pulse oximetry Body temperature Systolic blood pressure Diastolic blood pressure Provider Name and Address Organization Details Last Updated DateTime 2 88 /min 18 /min 98 % 98 % 97.8 [degF] 108 mm[Hg] 70 mm[Hg] Not Available [facility] 2 13:40:14 Date Recorded Body temperature Oxygen saturation Oxygen saturation in Arterial blood by Pulse oximetry Heart rate Respiratory rate Heart rate Systolic blood pressure Diastolic blood pressure Provider Name and Address Organization Details Last Updated DateTime 9 96.7 [degF] 96 % 96 % 102 /min 18 /min 84 /min 134 mm[Hg] 76 mm[Hg] Not Available [facility] 9 11:28:52 Social History Question Answer Notes LastModified by Organizat ion Details LastModified Time Tobacco Smoking Status Never Smoker KENNETH OLMOS [address], [place], [address], [place] [facility] 08/22/2018 12:18:07 Do You Have An Advance Directive? No Information not available 08/22/2018 What Is Your Code Status? Full Code Information not available 08/22/2018 How Many Days In The Past Year Have You Had A Heavy Drinking Consumption (4+ Female, 5+ Male)? 0 Information not available 08/22/2018 Within The Past 12 Months, Has It Happened That The Food You Bought Just Didn't Last And You Didn't Have Money To Get More. Normal Information not available 08/22/2018 Within The Past 12 Months, Have You Worried That Your Food Would Run Out Before You Got Money To Buy More. Yes [email or web address] Information not available 08/22/2018 Fall Risk: Do You Feel Unsteady When Standing Or Walking? No Information not available 08/22/2018 Marital Status holly Informatio n not available 08/22/2018 What Was The Date Of Your Most Recent Tobacco Screening? 08/22/2018 Information not available 09/13/2018 Sex: Unknown Functional Status None recorded. Mental Status None recorded. Family History Relationship Description Onset Age of this Age Resolved Age Notes LastModified by Organization Details LastModified Time Father Diabetes mellitus holly Not available 2018 12:17:48 Mother Hypertensive disorder nyuzych Not available 2018 12:18:01 Medical History Condition Response Diabetes Y Coronary Artery Disease N Cancer N Stroke N COPD N Depression Y Asthma N High Cholesterol Y Pulmonary Embolism N Hypertension Y Kidney Disease Y Gynecological HistoryNo gynecological history recorded. Obstetrics History GPAL:G 0 P 0 0 0 0 Past Encounters Encounter ID Performer Location Encounter Start Date Encounter Closed Date Diagnosis/Indication Diagnosis SNOMED-CT Code Diagnosis ICD10 Code Diagnosis Note [id number] [facility]OS [facility] [address] [facility] [place] [address] 08/22/2018 11:19:52 08/22/2018 15:51:18 Diarrhea 69261927 R19.7 External hemorrhoids 239 84140 K64.4 Left lower quadrant pain 758262261 R10.32 Mild dehydration 8466086 119 108 E86.0 Viral gastroenteritis 11 6769872 A08.4 [id number] [facility]H [facility]IN [facility] [address] [place] [address] 04/25/2019 14:09:07 04/26/2019 11:03:24 Lower respiratory tract infection 92184203 J22 [id number] [facility] [address] [place] [address] 01/18/2021 11:06:39 01/22/2021 00:20:05 Productive cough 88991877 R05.9 History of pneumonia 161 437847 Z87.01 Wheezing 94137375 R06.2 Exposure t o SARS-CoV-2 274034109 Z20.822 Exposure t o communicable disease 098855360 Z20.822 [id number] KENNETH Nelson [facility] [address] [place] [address] 12/16/2021 13:13:27 12/17/2021 12:06:38 Pain in right arm 345513393 M79.601 Rib pain 384556538 R07.8 1 Health Concerns Section Related Observation LastModified by Organization Detai ls LastModified Time None Recorded Concern Status LastModified by Organization Details LastModified Time None Recorded Advance Directives Directive N: Payers Insurance Date Sequence Insurance Name Policy Number Policy Caceres Covered Member ID Caceres Member ID Guarantor Name 04/22/2019 2 [place] [id number] Sola Knight 12/16/2021 1 [place] [employer] Sola Knight [id number] Sola Knight 08/22/2018 1 *SELF PAY* Sola Knight [id number] Sola Knight 12/16/2021 2 [employer] (MEDICARE SUPPLEMENT) Sola Knight [id number] Sola Knight Notes Date Note Type Note Provider Name and Address Organization Details Recorded Time 08/22/2018 text/html Mrs. Knight is an 10 0 yo female new to and this provider who presents with complain of diarrhea X3d. Patient reports that she took OTC pepto bismol which turned her stools black and she stopped taking it. She stated that diarrhea got better after taking pepto bismol but today she had another 2 loose stools. Patient also reports abdominal cramping in left lower quadrant; pain is 4/10 and better after she passes stools. Patient reports small amount of bright red bood on the toilet tissue; states that she has hemorrhoids and bleeding is probably the cause of that finding; described her stools as water with stool lumps . Patient also states that she feels fatigued today. Denied fever, chills, nausea, vomiting, bleeding, melena, dizziness, urinary symptoms or any other symptoms.Comorbidi ties: diabetes, depression, HLD, HTN, CKD KENNETH OLMOS [address], [place], [address], [place] [facility] 08/22/2018 17:22:51 04/25/2019 text/html 83-year-old teja cruz presents for evaluation. Reports 2-3 weeks of cough, shortness of breath, wheeze, occasional sinus congestion. Denies fever, chest pain, palpitations, ear pain, sore throat. Using albuterol inhaler (last use last night), mucinex, flonase. KENNETH RUBIN [address], [place], [address], [place] [facility] 04/25/2019 15:30:44 01/18/2021 text/html 85 y/o F with HT N, HLD, DM, Depression, Kidney Disease, known to and new to provider, is seeking further evaluation for cough with greenish yellow sputum production x 4 days with mild associated shortness of breath. The patient reports that approximately 3 weeks ago she went to [facility] and was diagnosed with pneumonia, started on Augmentin and discharged home. The patient reports using her albuterol pump frequently as well as Tussin DM and Tylenol with minimal relief. The patient reports just feeling fatigued and body aches as well. The patient denies any chest pain, shortness of breath at rest, fevers, chills, vomiting, diarrhea, abdominal pain, weakness, or loss of taste/smell. Patient states that her glucose has been under control. Patient is tolerating PO food and drink as normal. KENNETH VIVEROS [address], [place], [address], [place] [facility] 01/18/2021 13:13:52 12/16/2021 text/html 86 YO F new to [facility] and new to providerSHe has PMH of depression, diabetes, HTN, HLD, and CKD who presents today for 2- days of R arm and side pain . She thinks eh slept on her arm wrong the other day as she woke up and her R side ribcage and arm was hurting her when she moved it. She also lifted a heavy grocery bag the other day and she is unsure if this contributed as well. Addn it hurt only when she took a deep breath . Otherwise she denies any trauma or falls. There is no fever, chills, substernal chest pain, abd pain/jaw pain/l arm pain, SOB, weakness, numbness/tingling, hemoptysis. No other concerns or c/o today. KENNETH Eldridge [address], [place], [address], [place] [facility] 12/16/2021 14:31:03 OBGyn Episode No OBEpisode recorded.
--- OUTSIDE RECORDS SUMMARY | 2024-07-03 15:18 | XMS_ITS | Clinical Summary ---
Author Organization [facility] [address] [facility] Address [address] [place] [address] Phone Care Team Providers Care Toxicologist Name Role Phone Gregory Carrion MD Primary Care Provider Allergies No known active allergies Medications BD Ultra-Fine Short Pen Needle 31 gauge x 5/16 needle USE TO ADMINISTER INSULIN FOUR TIMES A DAY 400 each 1 01/02/20 24 Active ALPRAZolam (XANAX) 0.25 mg tablet Take 1 tablet by mouth at bedtime as needed for Sleep or Anxiety for up to 30 days. 01/19/20 21 Active cholecalcifero l (VITAMIN D-3) 50 mcg (2,000 unit) capsule Take 1 Cap by mouth daily. 05/05/19 18 Active escitalopram (LEXAPRO) 10 mg tablet TAKE 1 TABLET BY MOUTH EVERY DAY 02/20/19 23 Active fluticasone propionate (FLONASE) 50 mcg/actuation nasal spray 2 Sprays by Nasal route daily. 10/29/19 21 Active ursodioL (ACTIGALL) 500 mg tablet Take 1 Tablet by mouth 2 Times Daily. 02/21/19 24 Active albuterol HFA (Ventolin HFA) 90 mcg/actuation inhaler Inhale 2 Puffs into the lungs every 6 hours as needed for Cough or Wheezing. 07/22/19 23 Active OneTouch Ultra Test test strip USE TO TEST BLOOD SUGAR THREE TIMES DAILY 300 strip 1 02/26/19 25 Active rosuvastatin (CRESTOR) 10 mg tablet TAKE 1 TABLET BY MOUTH EVERY DAY 90 tablet 1 03/26/19 25 Active metoprolol tartrate (LOPRESSOR) 25 mg tablet Take 1 tablet (25 mg total) by mouth 2 (two) times a day. 180 tablet 1 03/21/19 25 Active estradioL (ESTRACE) 0.01 % (0.1 mg/gram) vaginal creamIndicatio ns:atrophic vaginitis associated with menopause Apply a pea-sized amount of cream with the applicator into the vaginal canal every night for 2 weeks, then twice a week thereafter. 42.5 g 5 03/26/19 25 Active methenamine hippurate (HIPREX) 1 gram tabletIndicati ons:prevention of bacterial urinary tract infection Take 1 tablet (1 g total) by mouth 2 (two) times a day with meals. 60 tablet 5 03/26/19 25 025 Active lisinopriL (PRINIVIL,ZEST RIL) 20 mg tablet TAKE 1 TABLET BY MOUTH EVERY DAY 90 tablet 1 04/08/19 25 Active omeprazole (PriLOSEC) [address] capsule TAKE 1 CAPSULE BY MOUTH TWICE A DAY 60 capsule 5 04/08/19 25 Active HumaLOG KwikPen Insulin 100 unit/mL injection pen Use three times a day before meals: <100:0 units, 101-150: 4 units, 151-200: 5 units, 201-250: 6 units, 251-300: 7 units, >301: 8 units, 04/30/19 25 Active blood-glucose sensor (FreeStyle Tony 3 Sensor) deviceIndicati ons:Uncontroll ed type 2 diabetes mellitus with hyperglycemia, with long-term current use of insulin ([facility] V24, [facility] V28) Box = Kit = EA, use one sensor every 14 days. 2 each 3 04/30/19 25 Active insulin glargine,hum.r ec.anlog (Basaglar KwikPen U-100 Insulin) 100 unit/mL (3 mL) injection pen Use 24 units at bedtime 15 mL 2 06/13/19 25 Active blood-glucose, music industry intern,cont (FreeStyle Tony 3 [place]) miscIndication s:Uncontrolled type 2 diabetes mellitus with hyperglycemia, with long-term current use of insulin ([facility] V24, [facility] V28) CGM, use with tony sensor 1 each 06/25/19 25 Active Lantus Solostar U-100 Insulin 100 unit/mL (3 mL) injection pen Use 24 units at bedtime 04/30/19 25 025 Discontinued blood-glucose meter,continuo us (FreeStyle Tony 3 [place]) miscIndication s:Uncontrolled type 2 diabetes mellitus with hyperglycemia, with long-term current use of insulin ([facility] V24, [facility] V28) CGM, use with tony sensor 1 each 04/30/19 25 025 Discontinued(Re order) Lantus Solostar U-100 Insulin 100 unit/mL (3 mL) injection pen INJECT 26 UNITS INTO THE SKIN AT BEDTIME 45 mL 1 06/08/19 25 025 Discontinued Active Problems Problem Noted Date Diagnosed Date Osteopenia 02/24/2020 Type II or unspecified type diabetes mellitus with neurological manifestations, uncontrolled(250.62) ([facility] V24, [facility] V28) 07/27/2015 Overview (01/10/2024): Uncontrolled type 2 diabetes [...] 7 days for recheck. Primary biliary cholangitis ([facility] V24, [facility] V28) 02/06/2013 Overview (01/10/2024): Diagnosis at cholecystectomy 2012. Treatment with ursodiol initiated 02/06/2013. EGD 04/16/2013: no lesions suggestive of portal hypertension. Chronic cholecystitis 10/15/2012 Overview (01/10/2024): S/P CHOLECYSTECTOMY HTN (hypertension) 05/18/2012 Diabetes mellitus with renal manifestation ([facility] V24, [facility] V28) 01/20/2012 Renal cyst 02/08/2011 Overview (01/10/2024): Ultrasound 11/30: [...] kidney disease) stage 3, GFR 30-59 ml/min ([facility] V24, [facility] V28) 03/19/2010 Diverticulitis of colon without hemorrhage 06/27 Overview (01/10/2024): Incidental finding at colonoscopy 06/28/2007. Pure hypercholesterolemia 11/07/2005 Adjustment disorder with depressed mood 05/27/19 06 Encounters Date Type Department Care Team Description 06/27/2024 Telephone Endocrinology [address] [phone] Eveline Cruz PA Medication Problem 06/25/[address] [phone] Eveline Cruz PA Medication Problem 06/24/2024 3:40 PM EDT Office Visit [address] [phone] Eveline Cruz PA Uncontrolled type 2 diabetes mellitus with hyperglycemia, with long-term current use of insulin ([facility] V24, [facility] V28) (Primary Dx); Stage 3 chronic kidney disease, unspecified whether stage 3a or 3b CKD ([facility] V24, [facility] V28); Hypertension, unspecified type 06/11/2024 Telephone Endocrinology - [address] [phone] Eveline Cruz PA Medication Problem 05/02/2024 Telephone Endocrinology [address] [phone] Eveline Cruz PA Medication Problem 04/29/2024 2:20 PM EDT Consult [address] [phone] Eveline Cruz PA Uncontrolled type 2 diabetes mellitus with hyperglycemia, with long-term current use of insulin ([facility] V24, [facility] V28) (Primary Dx); Hypertension, unspecified type; Pure hypercholesterolemia from Last 3 Months Immunizations Name Administration [...] Approximately age 14 FLEXIBLE SIGMOIDOSCOPY 01/05/2001 PROCEDURE: [place] SIGMOIDOSCOPY FLX DX W/COLLJ SPEC BR/WA IF PFRMD; COMMENT: screening COLONOSCOPY 06/28/2007 PROCEDURE: IL COLONOSCOPY FLX DX W/COLLJ SPEC WHEN PFRMD; COMMENT: negative/ tics OTHER SURGICAL HISTORY PROCEDURE: ---- OTHER ----; COMMENT: breast cyst TUBAL LIGATION PROCEDURE: HISTORICAL TUBAL LIGATION UPPER GASTROINTESTINAL ENDOSCOPY 04/16/2013 PROCEDURE: IL UPPER GI ENDOSCOPY PERFORMED; COMMENT: no evidence [...] kidney disease) stage 3, GFR 30-59 ml/min (CMS/HCC V24, CMS/HCC V28) 03/19/2010 DX:CKD (chronic kidney disea se) stage 3, GFR 30-59 ml/min (HCC) Abnormal liver function test 09/22/2010 DX: Abnormal liver function test HTN (hypertension) 05/18/2012 DX:HTN (hyper tension) Chronic cholecystitis 10/15/2012 DX:Chronic cholecystitis; COMMENT: S/P CHOLECYSTECTOMY Family History Medical History Relation Name Comments Diabetes Brother Cirrhosis Daughter 1 primary biliary cirrhosis Heart attack Father from [place] ag e 65, COPD Diabetes Mother Diabetes [...] Sign Reading Time Taken Comments Blood Pressure 120/85 06/24/2024 3:53 PM EDT Pulse 94 06/24/2024 3:53 PM EDT Temperature 36.1 ??C (97 ??F) 06/24/2024 3:53 PM EDT Respiratory Rate 14 03/26/2024 2:00 PM EST Oxygen Saturation 96% 06/24/2024 3:53 PM EDT Inhaled Oxygen Concentration - - Weight 77.1 kg (170 lb) 06/24/2024 3:53 PM EDT Height 154.9 cm (5' 1 ) 06/24/2024 3:53 PM EDT Body Mass Index 32.12 06/24/2024 3:53 PM EDT Plan of Treatment Upcoming Encounters Date Type Department Care Team (Late st Contact Info) Description 07/11/2024 2:00 PM EDT Office Visit Adult Medicine [place] - [address] [phone] Gregory Carrion MD [address] [place] [address] 08/13/2024 3:10 PM EDT Appointment Radiology Department - [address] [phone] 09/11/2024 4:30 PM EDT Office Visit Nephrology - [address] [phone] Roland Mckeon MD [address] [place] [address] 09/24/2024 2:15 PM EDT Office Visit Endocrinology - [place] [address] [place], [place] [phone] Tegan Arreguin PA [address] [place] [address] 09/24/2024 3:00 PM EDT Office Visit Urogynecology - [place] [address] [place], [place] [phone] Demi Fried MD [address] [facility] [address] [place] [address] Health Maintenance Due Date Last Done Comments [...] age to complete this topic Meningococcal B Vaccine Aged Out No l onger eligible based on patient's age to complete this topic RSV Immunization Patients Under 20 months Aged Out No longer eligible based on patient's age to complete this topic Varicella Vaccines Aged Out No longer eligible based on patient's age to complete this topic Procedures Procedure Name Priority Date/Time Associated Diagnosis Comments EXTERNAL CLINICAL LAB 05/23/2024 HEMOGLOBIN A1C Routine 02/22/2024 3:24 PM EST Diabetes mellitus of other type with other kidney complication, unspecified whether telephone clerks supervisor insulin use ([facility] V24, [facility] V28) FALLS RISK ASSESSMENT Routine 12/18/2023 DIABETES FOOT EXAM Routine 12/18/2023 ANNUAL BMP BLOOD TEST Routine 12/11/2023 LIPID PANEL Routine 12/11/2023 DXA BONE DENSITY STUDY 1+ SITS AXIAL SKEL Routine 04/13/2022 3:00 PM EST Other specified disorders of bone density and structure, unspecified site from Last 3 Months or Most Recently Relevant to Health Maintenance Results * External clinical lab (05/23/2024) Result [facility] Hector Mcdaniels Onbase LAB BLOOD ORDERABLES Fin al Result * (ABNORMAL) Hemoglobin A1c (02/22/2024 3:24 PM EST) [facility] Hemoglobin A1C 8.5(H) <6.5 % LAB CHEMISTRY METHOD 02/22/2024 9:19 PM EST [facility] Mean Bld Glu Estim. 197 mg/dL LAB CHEMISTRY METHOD 02/22/2024 9:19 PM EST [facility] Blood Venous blood specimen / Unknown Venipuncture / Unknown 02/22/2024 3:24 PM EST 02/22/2024 3:25 PM EST Result [facility] Gregory Carrion MD LAB BLOOD ORDERABLES Final Resul t [facility] [address] [place] [address], * Falls Risk Assessment (12/18/2023) [facility] Falls Risk Assessment abstracted Result [facility] Provider HEALTH MAINTENANCE Final Result * Diabetes Foot Exam (12/18/2023) [facility] Diabetes: Annual Foot Exam abstracted Result [facility] Hector SANTOYO HEALTH MAINTENANCE Final Result * Annual BMP Blood Test (12/11/2023) [facility] Annual BMP Blood Test abstracted Result [facility] Hector SANTOYO HEALTH MAINTENANCE Final Result * (ABNORMAL) Lipid panel (12/11/2023) [facility] LDL/HDL Ratio 2 0 - 4 Triglycerides [...] (World Health Organization Fracture Risk Assessment) [facility] Department of Internal Medicine recommends using [...] FRAX. Optional alternative screening schedule based on russel Costa al., [facility] March 10, 2011 for patients with [...] (World Health Organization Fracture Risk Assessment) [facility] Department of Internal Medicine recommendsusing National [...] FRAX. Optional alternative screening schedule based on russel Costa al., NEJMJanuary 2011 for patients with osteopenia (based on hip BMD T-score) is as follows: * advanced osteopenia (T scores -2.00 to -2.49), BMD testing every year * moderate osteopenia (T scores -1.50 to -1.99), BMD testing every 5years mild osteopenia or normal BMD (T scores -1.50 and higher), BMD testingevery 15 years [facility] Sheyla SANTOYO IMG DXA PROCEDURES Final Result from Last 3 Months or Most Recently Relevant to Health Maintenance Insurance [place] - [place] MEDICARE [facility] Care Teams Toxicologist Relationship Specialty Start Date End Date Gregory Carrion MD [address] [place] [address] PCP - General 12/12/1997
--- OUTSIDE RECORDS SUMMARY | 2024-07-03 15:18 | XMS_ITS | Encounter Summary ---
Author Organization [facility] Address [address] [place] [address] Care Team Providers Care Three Dimensional Art Instructor Name Role Phone Gregory Carrion MD Primary Care Provider Reason for Visit * Reason Onset Date Comments Medication Problem 06/25/2024 Encounter Details Date Type Department Care Team (Late st Contact Info) Description 06/25/2024 Telephone Endocrinology [facility] [place] [place] [address] [place] [phone] Annelise Rangel PA [address], [place] [phone] Medication Problem Social History Tobacco Use Types Packs/Day Years Used Date Smoking Tobacco: Former Cigarettes Q uit: 02/20/1995 Smokeless Tobacco: Never Alcohol Use Standard Drinks/Week Comments Yes 0 (1 standard drink = 0.6 oz pur e alcohol) Comments No Sex and Gender Information Value Date Recorded Sex Assigned at Not on file Legal Sex Female 5:16 AM EST Gender Identity Not on file Sexual Orientation Not on file documented as of this encounter Progress Notes * KENNETH Damon - 06/27/2024 3:38 PM EDT Can you please complete this through [facility]? Thank you Annelise * KENNETH Torres - 06/27/2024 10:32 AM EDT I do not see a prior authorization request. Not sure if you want to switch order in order through [facility] * Debra Ryder - 06/25/2024 1:48 PM EDT Medication Problem: What is the name of the medication patient is having a problem with?: natasha da silva 3 sensors What is the problem?: med b stating they have not received sufficient documentation from the presriber Who is calling about the problem? : [facility] Is this a NEW medication?: yes How long has the patient been taking this medication? 06/24/24 Who prescribed this medication for the patient? ANNELISE RANGEL Who is patients PCP?: Gregory Carrion MD Payor: MEDICARE / Plan: MEDICARE PART A & B / Product Type: Medicare / documented in this encounter Plan of Treatment Upcoming Encounters Date Type Department Care Team (Late st Contact Info) Description 07/11/2024 2:00 PM EDT Office Visit Adult Medicine [place] - [address] [phone] Gregory Carrion MD [address] [place] [address] 08/13/2024 3:10 PM EDT Appointment Radiology Department - [address] [phone] 09/11/2024 4:30 PM EDT Office Visit Nephrology - [address] [phone] Rloand Mckeon MD [address] [address] 09/24/2024 2:15 PM EDT Office Visit Endocrinology - [address] [phone] Tegan Arreguin PA [address] [place] [address] 09/24/2024 3:00 PM EDT Office Visit Urogynecology - [place] [address] [place] [address] Demi Fried MD [address] [place] [address] [address] [place] [address] documented as of this encounter Visit Diagnoses Not on filedocumented in this encounter Care Teams Three Dimensional Art Instructor Relationship Specialty Start Date End Date Gregory Carrion MD [address] [place] [address] PCP - General 12/12/1997 documented as of this encounter
--- OUTSIDE RECORDS SUMMARY | 2024-07-03 15:18 | XMS_ITS | Encounter Summary ---
Author Organization [facility] Address [address] [place] [address] Care Team Providers Care Information Systems Project Manager Name Role Phone Gregory Carrion MD Primary Care Provider [phone] Reason for Visit * Reason Onset Date Comments Medication Problem 06/27/2024 Encounter Details Date Type Department Care Team (Late st Contact Info) Description 06/27/2024 Telephone Endocrinology - [place] [address] [place] [phone] Eveline Cruz PA [address] [place], [place] [phone] Medication Problem Social History Tobacco Use Types [...] of this encounter Progress Notes * KENNETH Torres - 07/03/2024 9:[address] through [place] * Fernandez Lanier - 06/27/2024 11:54 AM EDT Medication Problem: What is the name of the medication patient is having a problem with?: Penelope da silva 3 reader What is the problem?: Alternative requested. Medicare B stating they have not received sufficient documentation from prescriber. Who is calling about the problem? : A pharmacist: Pharmacy: [facility] Pharmacy Pharmacist Name: N/A Pharmacy Is this a NEW medication?: yes How long has the patient been taking this medication? N/A Who prescribed this medication for the patient? Eveline Cruz Who is patients PCP?: Gregory Carrion MD Payor: MEDICARE / Plan: MEDICARE PART A & B / Product Type: Medicare / documented in this encounter Plan of Treatment Upcoming Encounters Date Type Department Care Team (Late st Contact Info) Description 07/11/2024 2:00 PM EDT Office Visit Adult Medicine [place] - [address] [phone] Gregory Carrion MD [address] [place] [address] 08/13/2024 3:10 PM EDT Appointment Radiology Department - [address] [phone] 09/11/2024 4:30 PM EDT Office Visit Nephrology - [address] [phone] Roland Mckeon MD [address] [address] 09/24/2024 2:15 PM EDT Office Visit Endocrinology - [address] [phone] Tegan Arreguin PA [address] [place] [address] 09/24/2024 3:00 PM EDT Office Visit Urogynecology - [address] [phone] Demi Fried MD [address] [place] [address] [address] [place] [address] documented as of this encounter Visit Diagnoses Not on filedocumented in this encounter Care Teams Information Systems Project Manager Relationship Specialty Start Date End Date Gregory Carrion MD [address] [place] [address] PCP - General 12/12/1997 documented as of this encounter
[2024-07-03 18:17] LABS: Alanine Aminotransferase 7 U/L (0-31); Albumin Level 3.9 g/dL (3.5-5.0); Alkaline Phosphatase 66 U/L (39-117); Anion Gap 15 (12-20); Aspartate Amino Transferase 18 U/L (5-31); Bilirubin Total 0.3 mg/dL (0.0-1.0); Blood Urea Nitrogen 27 mg/dL (9-16); Carbon Dioxide 25 mmol/L (22-29); Chloride 105 mmol/L (96-108); Estimated Glomerular Filt Rate 40; Glucose Random 186 mg/dL (60-115); Magnesium 1.3 mg/dL (1.6-2.6); Potassium 4.8 mmol/L (3.3-5.1); Sodium 140 mmol/L (135-145); Total Protein 6.8 g/dL (6.5-8.0)
[2024-07-08 08:54] LABS: Vitamin C 1.1 mg/dL (0.3-2.7)
== END 2024-07-03 15:13 | disposition home or self-care (01) ==
LOC: HO.LAB 15:12
PROVIDERS: PCP Internal Medicine; Visit Provider Internal Medicine Gastroenterology
DX: K75.81 Nonalcoholic steatohepatitis (NASH) (principal); E46 Unspecified protein-calorie malnutrition; K74.3 Primary biliary cirrhosis
CPT/HCPCS: 36415; 80053; 82180; 83735

== ENCOUNTER 2024-08-05 13:01 | Outpatient (REF) | payer MEDICARE, MEDICAID, SELFPAY ==
[2024-08-05 14:34] LABS: Magnesium 1.5 mg/dL (1.6-2.6); Potassium 4.6 mmol/L (3.3-5.1)
[2024-08-06 16:28] LABS: Calcium, Ionized 5.3 mg/dL (4.7-5.5)
== END 2024-08-05 13:02 | disposition home or self-care (01) ==
LOC: HO.LAB 13:01
PROVIDERS: PCP Internal Medicine; Visit Provider Internal Medicine Gastroenterology
DX: E46 Unspecified protein-calorie malnutrition (principal); E83.52 Hypercalcemia
CPT/HCPCS: 36415; 82330; 83735; 84132; 99212

== ENCOUNTER 2024-08-05 13:01 | Outpatient (AMB) | payer MEDICARE, MEDICAID, SELFPAY ==
--- NOTE | 2024-08-05 13:03 | MHC.OFFVIS ---
Vital Signs 08/05/24 13:04 Height 5 ft 1 in Weight 167 lb 8.821 oz BMI 31.7 BP 109/56 L Blood Pressure Location Lt radial Position Sitting Pulse 60 Intake Visit Reasons: 6 months f/u Intake Note: Sola presents in the office as a 6 month follow up follow up. CC: She states that she is not having any concerns today! Auto Transmission Specialist Required: No Allergies No Known Allergies [No Known Allergies*] Allergy (Verified 08/05/24 13:14) HPI HPI 6 months f/u: Details: 88 yr old f being seen for f/u RECAP: Per PCP note pt had PBC dx 2011 after cholecystectomy? she was commenced on ursodiol and been on since she had EGD 03/2013-- no signs of portal HTN noted. she is recovering from an attack of vertigo, w/u neg for CVA she has a rash few months ago, ?shingles --now post herpetic pain--burning on left side she denies abdominal pain no nausea appetite is good weight si stable normal stools she has hemorrhoids that bleed some times denies constipation she had colonoscopy--cant recall --done at [facility] she use to see Dr Qureshi US RUQ: 07/2021---renal cysts, small liver consistent with cirrhosis, no masses US RUQ: 05/18/23- fatty liver INTERIM: she feels well no complaints no jaundice appetite is good takes vitamins daily and ursodiol she has some burning LLQ residual from herpetic neuralgia --went to pain mx EXAM: GENERAL: The patient is well developed and nontoxic, VITAL SIGNS:see workflow HEENT: Nonicteric sclerae, PERRLA, EOMI. Oropharynx clear. Moist mucous membranes. Conjunctivae appear well perfused. No thyroid mass. CHEST: Chest wall is nontender. HEART: Regular rate and rhythm without murmurs. LUNGS: Clear to auscultation bilaterally. ABDOMEN: Soft, positive bowel sounds,tender upper abdomen, no organomegaly.no flank tenderness SKIN: ernie warts NEUROLOGIC: Cranial nerves II-XII intact without motor/sensory deficit. MS: normal ROM A/P: 1/ diagnosis of PBC, been on urosdiol for years, LFT have been normal- 2/ hypomagnesemia likely 2/2 to PPI PLAN: 1/ recheck mag today--if low can consider splitting to BID dosing vs all at once, or alternative preperation 2/ cont with ursodiol 3/ cont with vitamins PFSH Medical History Hyperlipidemia Hypertension Post herpetic neuralgia Herpes zoster Type 2 diabetes mellitus Surgical History Hx of cholecystectomy Hx of appendectomy Hx of knee surgery History of esophagogastroduodenoscopy (EGD) Hx of colonoscopy Social History Household Members: None Housing: Other Housing Other:: senior housing Do you presently have visiting nurse or other home services: No Alcohol intake: never Patient Tobacco Use Status: Former Tobacco user Tobacco use type: Cigarette Cigarette Packs Per Day: 1 Cigarettes Per Day: 20.0 Years Smoked: 36 service: No Physical Exam Vital Signs: BMI result Body Mass Index 31.7 Assessment & Plan Assessment & Plan (1) Malnutrition: Code(s): E46 - Unspecified protein-calorie malnutrition Category: Medical Plan: as above Orders: Orders Magnesium Today E46 - Unspecified protein-calorie malnutrition Potassium Today E46 - Unspecified protein-calorie malnutrition Calcium, Ionized Today E46 - Unspecified protein-calorie malnutrition, E83.52 - Hypercalcemia Medications: New capsaicin 0.025% (Arthritis-Muscle (capsaicin)) do not wash area for at least 30 min after application 1 appl topical BID 120 grams 1RF Coding Level of Care Code Est Pt Level 3 (03569) Diagnoses Malnutrition E46
[2024-08-05 13:04] VITALS: BP 109/56; PULSE 60; BMI 31.7
--- OUTSIDE RECORDS SUMMARY | 2024-08-05 14:25 | XMS_ITS | Data Portability ---
Author Organization [place] [facility] Address [address] [place] [address] Care Team Providers Care Aircraft Part Assembler Name Role Phone DALE HAGER Primary Care Provider [phone] Assessment Encounter Date Assessment Date Assessment LastModified [...] I have accessed patient records on the [employer]. This information was pertinent in [...] approximately 3 weeks ago she went to [facility] ER and was diagnosed with pneumonia, started [...] COVID-19 PCR ordered, obtained and sent to [facility] ER. CXR ordered to r/o pneumonia. [...] after care of this [facility]. Not available 01/18/2021 [...] specimen 2020 [email or web address] [facility], [address] [place], [address], 11:38:16 unlisted lab - covid-19 (novel coronavirus ) PCR 2020 [email or web address] [facility] (Centralized Electronic Ordering - All Locations), Patient Can Go To The Location Of Their Choice, [address] 21:25:34 CMP, serum or plasma 2018 019 [email or web address] [facility] (Centralized Electronic Ordering - All Locations), Patient Can Go To The Location Of Their Choice, [id number] 9 12:21:55 BMP + ionized calcium, serum or plasma 2018 019 [facility], [address] [place], [address], 9 12:07:40 fecal occult blood, stool 2018 019 [facility], [address] [place], [address], 9 12:07:40 CBC w/ auto diff 2018 019 MARISEL [facility] (Centralized Electronic Ordering - All Locations), Patient Can Go To The Location Of Their Choice, [address] 9 02:20:25 Referral None recorded. Procedures None [...] can be seen. Thank you. 2021 022 [facility] ([facility]), [address], [place], [address], 2 11:13:11 XR, chest, 2 view - cough, r/o pneumonia 2020 021 [facility] ([facility] [address], [place], [address], 1 10:50:01 XR, chest, 2 view 2019 020 [facility] ([facility]), [address], [place], [address], 0 10:08:18 Medication Orders ProAir HFA 90 mcg/actuati on aerosol inhaler 2020 021 [facility]/Pharmacy #2339, [address] [place] [address], [address], 1 11:41:42 prednisone 10 mg tablet 2020 021 [facility]/Pharmacy #2339, [address] [place] [address], [address], 2 13:40:58 doxycycline hyclate 100 mg capsule 2020 021 [facility]acy #2339, [address] [place] [address], [address], 2 13:40:22 doxycycline hyclate 100 mg tablet 2020 021 [facility]/Pharmacy #2339, [address] [place] [address], [address], 2 13:40:25 prednisone 20 mg tablet 2020 021 [facility]/Ph[facility]acy #2339, [address] [place] [address], [address], 2 13:41:03 doxycycline hyclate 100 mg capsule 2019 020 [facility]/Pharmacy #2339, [address], [place], [address], 2 13:40:22 prednisone 10 mg tablet 2019 020 [facility] Not available 2 13:40:58 doxycycline hyclate 100 mg tablet 2019 020 [facility]/Pharmacy #2339, [address], [place], [address], 2 13:40:25 prednisone 20 mg tablet 2019 020 [facility]/Pharmacy #2339, [address], [place], [address], 2 13:41:03 sodium chloride 0.9 % intravenous solution 2018 019 [facility]acy #2339, [address], [place], [address], 0 14:10:43 loperamide 2 mg tablet 2018 019 [facility]acy #2339, [address], [place], [address], 0 14:10:57 Patient TargetsNo targets recorded. Patient Instructions Encounter Date Encounter Id Patient Instructions Last Modified By Organization Details Last Modified Time 08/22/2018 [id number] diarrhea: care instructions [email or web address] Not available 08/22/2018 12:07:40 Acute Nausea and [...] by toxins released from food that ? g oes bad? as well as some types of [...] disease, do not use Tylenol. Ask your MANAGER SOURCING how to address fever if you are concerned about Tylenol use. 3) Anti-diarrheal medicines: These are available [id number], but in some cases are not recommended and can even worsen some cases of intestinal problems. Ask your MANAGER SOURCING if you should use them. In children [...] with one [facility]. SEEK CARE IMMEDIATELY IF: 1) You [...] in your condition between 8am-10pm, please call [facility] at [phone] to help navigate your care. [facility]. You were seen today for [...] in your condition between 8am-10pm, please call [facility] at [phone] to help navigate your care. nyuzych Not available 08/22/2018 12:16:32 01/18/2021 [id number] Thank you for yo ur [facility]. We cannot always find the exact cause of your symptoms during your initial visit. Please follow up with your primary care provider or specialist within 24-48 hours to be rechecked or seek medical attention if your symptoms do not go away or get worse. If you develop any new or worsening symptoms and need after hours care, please go to nearest ER and/or call 911. If you have additional concerns or develop a change in your condition between 8am-10pm, please call [facility] at [phone] to help navigate your care. Not available 01/18/2021 12:08:07 12/16/2021 [id number] Thank you for yo ur visit with [facility] today. We cannot always find the exact cause of your symptoms during your initial visit. Please follow up with your primary care provider or specialist within 2-3 days to be rechecked or seek medical attention if your symptoms do not go away or get worse. If you develop any new or worsening symptoms and need after hours care, please go to nearest ER and/or call 911. If you have additional concerns or develop a change in your condition between 8am-10pm, please call [facility] at [phone] to help navigate your care. Thank you for your visit with [facility] today. You do not appear to have [...] in your condition between 8am-10pm, please [facility] at [phone] to help navigate your care. [email or web address] Not available 12/16/2021 14:27:33 Reason for Referral None Reported. Results Created Date Observation Date Name Description Value Unit Range Abnormal Flag Note LastModifiedBy Organization Detail LastModifiedTime 08/23/19 19 08/22/2018 fecal occul t blood , stool Occult Blood negati ve Not Available [facility] [address], [place], [address], 08/22/2018 11:48:56 08/23/1908/22/2018 BMP + ioniz ed calci um, serum or plasm a Na 141 mmol/ L 136-14 5 Not Available [facility] [address] [place], [address], 08/22/2018 11:27:46 08/23/1908/22/2018 BMP + ioniz ed calci um, serum or plasm a K 4.1 mmol/ L 3.5-5. 1 Not Available [facility] [address] [place], [address], 08/22/2018 11:27:46 08/23/1908/22/2018 BMP + ioniz ed calci um, serum or plasm a cL 102 mmol/ L 96-111 Not Available [facility] [address] [place], [address], 08/22/2018 11:27:46 08/23/1908/22/2018 BMP + ioniz ed calci um, serum or plasm a ica 1.12 mmol/ L 1.1-1. 4 Not Available [facility] [address] [place], [address], 08/22/2018 11:27:46 08/23/1908/22/2018 BMP + ioniz ed calci um, serum or plasm a TCO2 26 mmol/ L 20-30 Not Available [facility] [address] [place], [address], 08/22/2018 11:27:46 08/23/1908/22/2018 BMP + ioniz ed calci um, serum or plasm a glu 234 mg/dL 70-115 Not Available [facility] [address] [place], [address], 08/22/2018 11:27:46 08/23/1908/22/2018 BMP + ioniz ed calci um, serum or plasm a BUN 18 mg/dL 6-24 Not Available [facility] [address] [place], [address], 08/22/2018 11:27:46 08/23/1908/22/2018 BMP + ioniz ed calci um, serum or plasm a crea 1.2 mg/dL .65-1. 36 Not Available [facility] [address] [place], [address], 08/22/2018 11:27:46 08/23/1908/22/2018 BMP + ioniz ed calci um, serum or plasm a HCT 39 %_pcv 40.6-5 0.3 Not Available [facility] [address] [place], [address], 08/22/2018 11:27:46 08/23/1908/22/2018 BMP + ioniz ed calci um, serum or plasm a Hb 13.3 g/dL 13.9-1 7.4 Not Available [facility] [address] [place], [address], 08/22/2018 11:27:46 08/23/1908/22/2018 BMP + ioniz ed calci um, serum or plasm a angap 18 mmol/ L 6-18 Not Available [facility] [address] [place], [address], 08/22/2018 11:27:46 08/23/1908/23/2018 CBC w/ auto diff WBC 8.0 K/mm3 (4.0-1 1.0) Not Available [facility] (Centralized Electronic Ordering - All Locations) Patient Can Go To The Location Of Their Choice, [address] 08/23/2018 02:20:25 08/23/1908/23/2018 CBC w/ auto diff RBC 4.33 M/mm3 (4.20- 5.40) Not Available [facility] (Centralized Electronic Ordering - All Locations) Patient Can Go To The Location Of Their Choice, [address] 08/23/2018 02:20:25 08/23/1908/23/2018 CBC w/ auto diff [...] Choice, 08/23/2018 02:20:08/23/1908/23/2018 CBC w/ auto diff lymph # 1.7 [...] Go To The Location Of Their Choice, 08/23/2019 02:20:25 08/23/1908/23/2018 CBC w/ auto diff neut 68.7 % (44-76 ) Not Available [facility] (Centralized Electronic Ordering - All Locations) Patient Can Go To The Location Of Their Choice, [facility] 08/23/2018 02:20:25 08/23/1908/23/2018 CBC w/ auto diff lymph 21.0 % (15-43 ) Not Available [facility] (Centralized Electronic Ordering - All Locations) Patient Can Go To The Location Of Their Choice, [facility] 08/23/2018 02:20:25 08/23/1908/23/2018 CBC w/ auto diff monocyte 6.6 % (4.5-1 0.5) Not Available [facility] (Centralized Electronic Ordering - All Locations) Patient Can Go To The Location Of Their Choice, [facility] 08/23/2018 02:20:25 08/23/1908/23/2018 CBC w/ auto diff eo 2.9 % (0-6) Not Available [facility] (Centralized Electronic Ordering - All Locations) Patient Can Go To The Location Of Their Choice, [facility] 08/23/2018 02:20:25 08/23/1908/23/2018 CBC w/ auto diff baso 0.5 % (0-2) Not Available [facility] (Centralized Electronic Ordering - All Locations) Patient Can Go To The Location Of Their Choice, [facility] 08/23/2018 02:20:25 08/23/1908/23/2018 CBC w/ auto diff imm gran 0.3 % Not Available [facility] (Centralized Electronic Ordering - All Locations) Patient Can Go To The Location Of Their Choice, [facility] 08/23/2018 02:20:25 01/19/20 21 01/18/2021 COVID -19 (NOVE L CORON AVIRU S) PCR covid-19 PCR specimen source NASAL Not Available [facility] (Centralized Electronic Ordering - All Locations) Patient Can Go To The Location Of Their Choice, [facility] 01/25/2021 15:12:30 01/19/20 21 01/20/2021 COVID -19 [...] ng. Resul t repor mile to the H. To preve nt error s in diagn [...] perfo rmed by real time PCR utili FoKo0 SARS- CoV-2 test. Not Available [facility] (Centralized Electronic Ordering - All Locations) Patient Can Go To The Location Of Their Choice, [address] 01/25/2021 15:12:30 01/19/20 21 01/18/2021 rapid SARS CoV + SARS CoV 2 Ag, QL IA, respi rator y speci men Covid-19 (ref: neg) negati ve Not Available [facility] [address] [place], [address], 01/18/2021 11:36:28 01/19/20 21 01/18/2021 rapid SARS CoV + SARS CoV 2 Ag, QL [place], respi rator y speci men Control Visual ized/V alid Not Available [facility] [address], [place], [address], 01/18/2021 11:36:28 01/19/20 21 01/18/2021 rapid SARS CoV + SARS CoV 2 Ag, QL [place], respi rator y speci men Location [facility], [address], [place] [address], [id number] Not Available [facility] [address], [place], [address], 01/18/2021 11:36:28 04/26/19 20 04/26/2019 XR, chest [...] M.D. 04/26/19 10:02: 44 AM EST. [email or web address] [facility] ([facility]) [address], [place], [address], 04/27/2019 10:12:54 01/20/20 21 XR, chest , 2 view No observ ation record ed. [email or web address] [facility] ([facility]) [address], [place], [address], 01/20/2021 12:09:43 12/18/19 22 12/17/2021 XR, chest [...] SKINNER M.D. 2021 11:02: 05 AM EDT. [email or web address] [facility], [address], 12/19/2021 16:37:44 Result Notes Documentation Provider Name and Address Organization Details Recorded Time Xr, Chest, 2 View : XRAY CHEST 2 VIEW FINDINGS: Lungs: No focal consolidation. Pulmonary vasculature is within normal limits. Pleura: No pneumothorax. No pleural effusion. Heart and Mediastinum: The cardiomediastinal silhouette is normal in size and contour. Osseous structures: Visualized osseous structures are stable. No radiopaque foreign body. CONCLUSION: No acute cardiopulmonary process. ELECTRONICALLY SIGNED BY HUGO BOOTH M.D. 04/26/2019 10:02:44 AM EST. XRAY CHEST 2 VIEW Results: Lungs: No focal consolidation. Pulmonary vasculature is within normal limits. Pleura: No pneumothorax. No pleural effusion. Heart and Mediastinum: The cardiomediastinal silhouette is normal in size and contour. Osseous structures: Visualized osseous structures are stable. No radiopaque foreign body. Conclusion: No acute cardiopulmonary process. Electronically signed by HUGO BOOTH M.D. 04/26/2019 10:02:44 AM EST. KENNETH OLMOS [facility] [place], [address], [place] [facility] 04/27/2019 10:12:54 Xr, Chest, 2 View : XRAY CHEST 2 VIEW FINDINGS: The lungs are free of active pulmonary disease. There is no mass, infiltrate, consolidation, or effusion. There is no adenopathy, the mediastinum is normal. The osseous structures are normal. CONCLUSION: Normal chest ELECTRONICALLY SIGNED BY RENEE SKINNER M.D. 12/17/2021 11:02:05 AM EDT. XRAY CHEST 2 VIEW Results: The lungs are free of active pulmonary disease. There is no mass, infiltrate, consolidation, or effusion. There is no adenopathy, the mediastinum is normal. The osseous structures are normal. Conclusion: Normal chest Electronically signed by RENEE SKINNER M.D. 12/17/2021 11:02:05 AM EDT. KENNETH Jackson [address], [place], [address], [place] [facility] 12/19/2021 16:37:44 Procedures Surgical History Date Name Laterality Status Provider Name and Address Organization Details Recorded Time 019 IV Start Procedure - DH completed KENNETH OLMOS [address], [place], [address], [place] [facility] 08/22/2018 12:10:26 cholecystectomy completed KENNETH Boland [address], [place], [address], [place] [facility] 12/16/2021 13:41:37 Imaging Results None recorded. Procedure Notes None recorded. Medical Equipment None [...] % 158 mm[Hg] 78 mm[Hg] Not Available [facility] 0 14:18:10 Date Recorded Body temperature Oxygen saturation Oxygen saturation in Arterial blood by Pulse oximetry Heart rate Respiratory rate Heart rate Systolic blood pressure Diastolic blood pressure Provider Name and Address Organization Details Last Updated DateTime 9 96.7 [degF] 96 % 96 % 102 /min 18 /min 84 /min 134 mm[Hg] 76 mm[Hg] Not Available [facility] 9 11:28:52 Date Recorded Heart rate Respiratory rate Oxygen saturation Oxygen saturation in Arterial blood by Pulse oximetry Body temperature Systolic blood pressure Diastolic blood pressure Provider Name and Address Organization Details Last Updated DateTime 2 88 /min 18 /min 98 % 98 % 97.8 [degF] 108 mm[Hg] 70 mm[Hg] Not Available [facility] 2 13:40:14 Date Recorded Heart rate Body temperature Oxygen [...] % 126 mm[Hg] 74 mm[Hg] Not Available [facility] 1 11:23:43 Social History Question Answer Notes LastModified by Organizat ion Details LastModified Time Tobacco Smoking Status Never Smoker KENNETH OLMOS [address] [place] [address] [address], [place], [address], [place] [facility] 08/22/2018 12:18:07 Do You Have An Advance [...] You Got Money To Buy More. Yes Information not available 08/22/2018 Fall Risk: Do You Feel Unsteady When Standing Or Walking? No Information not available 08/22/2018 Marital Status Informatio n not available 08/22/2018 What Was The Date Of Your Most Recent Tobacco Screening? 08/22/2018 Information not available 09/13/2018 Sex: Unknown Functional Status None recorded. Mental Status None recorded. Family History Relationship Description Onset Age of this Age Resolved Age Notes LastModified by Organization Details LastModified Time Father Diabetes mellitus [email or web address] Not available 2018 12:17:48 Mother Hypertensive disorder [...] SNOMED-CT Code Diagnosis ICD10 Code Diagnosis Note [id number] KENNETH OLMOS [facility] [address] [place] [address] 08/22/2018 11:19:52 08/22/2018 15:51:18 Diarrhea 91624502 R19.7 External hemorrhoids 239 76066 K64.4 Left lower quadrant pain 485754431 R10.32 Mild dehydration 6389598 119 108 E86.0 Viral gastroenteritis 11 2275055 A08.4 [id number] KENNETH RUBIN [facility] [address] [place] [address] 04/25/2019 14:09:07 04/26/2019 11:03:24 Lower respiratory tract infection [id number] J22 [id number] KENNETH VIVEROS [facility] [address] [place] [address] 01/18/2021 11:06:39 01/22/2021 00:20:05 Productive cough 95729329 R05.9 History of pneumonia 161 722678 Z87.01 Wheezing 66135083 R06.2 Exposure t o SARS-CoV-2 405911368 Z20.822 Exposure t o communicable disease 998092914 Z20.822 [id number] KENNETH Nelson [facility] [address] [place] [address] 12/16/2021 13:13:27 12/17/2021 12:06:38 Pain in right arm 553467160 M79.601 Rib pain 856805981 R07.8 1 Health Concerns Section Related Observation LastModified by Organization Detai ls LastModified Time None Recorded Concern Status LastModified by Organization Details LastModified Time None Recorded Advance Directives Directive N: Payers Insurance Date Sequence Insurance Name Policy Number Policy Caceres Covered Member ID Caceres Member ID Guarantor Name 04/22/2019 2 [place] [facility] Sola Knight [id number] Sola Knight 12/16/2021 1 [place] B[place] [employer] Sola Knight [id number] Sola Knight 08/22/2018 1 *SELF PAY* Sola Knight [id number] Sola Knight 12/16/2021 2 [employer] (MEDICARE SUPPLEMENT) Sola Knight [id number] Sola Knight Notes Date Note Type Note [...] symptoms.Comorbidi ties: diabetes, depression, HLD, HTN, CKD KENNEHT OLMOS [address] [place], [address], [place] [facility] 08/22/2018 17:22:51 04/25/2019 text/html 83-year-old fema anthony presents for evaluation. Reports 2-3 weeks of cough, shortness of breath, wheeze, occasional sinus congestion. Denies fever, chest pain, palpitations, ear pain, sore throat. Using albuterol inhaler (last use last night), mucinex, flonase. KENNETH RUBIN [address], [place], [address], [place] [facility] 04/25/2019 15:30:44 01/18/2021 text/html 85 y/o F with HT N, HLD, DM, Depression, Kidney Disease, known to and new to provider, is seeking further evaluation for cough with greenish yellow sputum production x 4 days with mild associated shortness of breath. The patient reports that approximately 3 weeks ago she went to [facility] and was diagnosed with pneumonia, started on [...] as normal. KENNETH VIVEROS [address], [place], [address], [place] [facility] 01/18/2021 13:13:52 12/16/2021 text/html [...] c/o today. KENNETH Eldridge [address], [place], [address], [place] [facility] 12/16/2021 14:31:03 OBGyn Episode No OBEpisode recorded.
== END 2024-08-05 13:29 | disposition home or self-care (01) ==
LOC: HO.HGI 13:01
PROVIDERS: PCP Internal Medicine; Visit Provider Internal Medicine Gastroenterology
DX: E46 Unspecified protein-calorie malnutrition (principal)
CPT/HCPCS: 99213

== ENCOUNTER 2025-01-06 14:08 | Outpatient (REF) | payer MEDICARE, MEDICAID, SELFPAY ==
[2025-01-06 15:23] LABS: MANUAL DIFF FLAG NO
[2025-01-06 15:44] LABS: Hematocrit 40.3 % (37.0-47.0); Hemoglobin 12.7 g/dl (12.0-16.0); Imm Gran Abs Auto 0.03 X10*3/uL (0.00-0.03); Imm Gran Pct Auto 0.4 % (0.0-0.4); Lymphocytes Absolute Auto 1.8 X10*3/uL (1.2-4.9); Mean Corpuscular HGB Conc 31.5 g/dl (31.0-35.0); Mean Corpuscular Hemoglobin 28.8 pg (27.0-33.0); Mean Corpuscular Volume 91.4 fL (80.0-98.0); NRBC Abs Auto 0.000 X10*3/uL (0.0-0.012); NRBC Pct Auto 0.0 /100WBC (0.0-0.2); Platelet Count 162 X10*3/uL (160-400); Red Blood Count 4.41 X10*6/uL (4.20-5.50); White Blood Count 7.5 X10*3/uL (4.8-10.8)
[2025-01-06 15:52] LABS: INTERNATIONAL NORM RATIO 1.0 (0.9-1.1); Prothrombin Time 12.7 SEC (11.2-13.5)
[2025-01-06 16:25] LABS: Alanine Aminotransferase 10 U/L (0-31); Albumin Level 4.1 g/dL (3.5-5.0); Alkaline Phosphatase 78 U/L (39-117); Anion Gap 10 (12-20); Aspartate Amino Transferase 23 U/L (5-31); Blood Urea Nitrogen 29 mg/dL (9-16); Calcium 9.5 mg/dL (8.4-10.2); Carbon Dioxide 29 mmol/L (22-29); Chloride 101 mmol/L (96-108); Estimated Glomerular Filt Rate 36; Magnesium 1.4 mg/dL (1.6-2.6); Potassium 4.9 mmol/L (3.3-5.1); Sodium 135 mmol/L (135-145); Total Protein 7.1 g/dL (6.5-8.0)
--- OUTSIDE RECORDS SUMMARY | 2025-01-07 05:29 | XMS_ITS ---
Author Name [facility] Organization Unknown Care Team Organization Name Specialty Phone Email Start Date End Da te [facility] 2024 [facility] 12/28/2021 2023
== END 2025-01-06 14:09 | disposition home or self-care (01) ==
LOC: HO.LAB 14:08
PROVIDERS: PCP Internal Medicine; Visit Provider Internal Medicine Gastroenterology
DX: K75.81 Nonalcoholic steatohepatitis (NASH) (principal); K74.60 Unspecified cirrhosis of liver; K74.3 Primary biliary cirrhosis; E46 Unspecified protein-calorie malnutrition; Z68.32 Body mass index [BMI] 32.0-32.9, adult
CPT/HCPCS: 36415; 80053; 82306; 83735; 84446; 84590; 84597; 84630; 85025; 85610; 99212

== ENCOUNTER 2025-01-06 14:08 | Outpatient (AMB) | payer MEDICARE, MEDICAID, SELFPAY ==
[2025-01-06 14:12] VITALS: BP 131/67; PULSE 70; BMI 32.1
--- NOTE | 2025-01-06 14:12 | A.OFFVIS_ITS ---
Vital Signs 01/06/25 14:12 Height 5 ft 1 in Weight 169 lb 12.095 oz BMI 32.1 BP 131/67 Blood Pressure Location Lt brachial Position Sitting Pulse 70 Intake Visit Reasons: 5 mo Intake Note: Sola presents in the office as a 5 month follow up. 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 she was commenced on ursodiol and been on since she had EGD 03/2013-- no signs of portal HTN noted. she is recovering from an attack of vertigo, w/u neg for CVA she has a rash few months ago, ?shingles --now post herpetic pain--burning on left side she denies abdominal pain no nausea appetite is good weight si stable normal stools she has hemorrhoids that bleed some times denies constipation she had colonoscopy--cant recall --done at [facility] she use to see Dr Qureshi US RUQ: 07/2021---renal cysts, small liver consistent with cirrhosis, no masses US RUQ: 05/18/23- fatty liver INTERIM: she is doing good, no complaints no jaundice appetite is good, weight is stable no abdominal pain takes vitamins daily and ursodiol she has some numbness now in LLQ --residual effect from herpetic neuralgia - EXAM: GENERAL: The patient is well developed and nontoxic, VITAL SIGNS:see workflow HEENT: Nonicteric sclerae, PERRLA, EOMI. Oropharynx clear. Moist mucous membranes. Conjunctivae appear well perfused. No thyroid mass. CHEST: Chest wall is nontender. HEART: Regular rate and rhythm without murmurs. LUNGS: Clear to auscultation bilaterally. ABDOMEN: Soft, positive bowel sounds,tender upper abdomen, no organomegaly.no f lank tenderness SKIN: ernie warts NEUROLOGIC: Cranial nerves II-XII intact without motor/sensory deficit. MS: normal ROM A/P: 1/ diagnosis of PBC, been on urosdiol for years, LFT have been normal- 2/ hypomagnesemia likely 2/2 to PPI PLAN: 1/ recheck mag today and LFT, PT, fat melina vitamins 2/ cont with ursodiol 3/ cont with vitamins 4/ US liver PFSH Medical History Hyperlipidemia Hypertension Post herpetic neuralgia Herpes zoster Type 2 diabetes mellitus Surgical History Hx of cholecystectomy Hx of appendectomy Hx of knee surgery History of esophagogastroduodenoscopy (EGD) Hx of colonoscopy Social History Household Members: None Housing: Other Housing Other:: senior housing Do you presently have visiting nurse or other home services: No Alcohol intake: never Patient Tobacco Use Status: Former Tobacco user Tobacco use type: Cigarette Cigarette Packs Per Day: 1 Cigarettes Per Day: 20.0 Years Smoked: 36 service: No Physical Exam Vital Signs: Last Vital Signs Pulse 70 01/06/25 14:12 BP 131/67 01/06/25 14:12 BMI result Body Mass Index 32.1 Assessment & Plan Assessment & Plan (1) Primary biliary cholangitis: Code(s): K74.3 - Primary biliary cirrhosis Category: Medical Plan: as above Orders: Orders Comprehensive Met. Panel Today K74.3 - Primary biliary cirrhosis, K75.81 - Nonalcoholic steatohepatitis ([place]ERT) Prothrombin Time INR Today K74.3 - Primary biliary cirrhosis US abdomen quigley w elastography Today K74.3 - Primary biliary cirrhosis, K74.60 - Unspecified cirrhosis of liver, K75.81 - Nonalcoholic steatohepatitis ([place]ERT) Vitamin A Today K74.3 - Primary biliary cirrhosis Vitamin D 25-OH Total Today K74.3 - Primary biliary cirrhosis Magnesium Today K74.3 - Primary biliary cirrhosis Complete Blood Count Auto Diff Today K74.3 - Primary biliary cirrhosis Vitamin E Today K74.3 - Primary biliary cirrhosis Vitamin K1 Today E46 - Unspecified protein-calorie malnutrition, K74.3 - Primary biliary cirrhosis Zinc Today K74.3 - Primary biliary cirrhosis Coding Level of Care Code Est Pt Level 4 (86899) Diagnoses Primary biliary cholangitis K74.3
== END 2025-01-06 14:51 | disposition home or self-care (01) ==
LOC: HO.HGI 14:08
PROVIDERS: PCP Internal Medicine; Visit Provider Internal Medicine Gastroenterology
DX: K74.3 Primary biliary cirrhosis (principal)
CPT/HCPCS: 99214